=== PATIENT | female | born 1960 | race Caucasian/White ===

== ENCOUNTER 2016-05-09 17:17 | Inpatient (IN) ==
--- NOTE | 2016-05-09 17:26 | Emergency Department Note ---
Disposition Clinical Impression: Pancreatitis, Diabetes, Obesity, Gallbladder disease, Abnormal chest x-ray Disposition: Admitted As Inpatient Referrals: Stephanie Bobo CNP [Primary Care Provider] - Forms: ED Satisfaction Letter, Work/School Release General Adult HPI - General Chief complaint: ED Abdominal Pain Stated complaint: epigastric pain Time Seen by Provider: 05/09/16 17:25 Source: patient Limitations: no limitations - History of Present Illness HPI Narrative: 55-year-old female reports emergency department describing severe midepigastric and right upper abdominal pain. She states she is scheduled to have her gallbladder removed and she states that she has a known history of gallbladder disease. The patient felt severe right upper and mid epigastric pain after eating. She denies any chest pain shortness of breath or cough no fever leg swelling or pain or syncope. She is not anticoagulated at this time. There is no history of emesis or diarrhea. There has been no bloody stool. No rashes fever or trauma. The patient has had no back pain or urinary symptoms. The pain started today. She states she has a history of pancreatitis. There is no history of confusion or difficulty moving the arms or legs independently. Has no history of jaundice. She is known to be diabetic and did not have any diabetic medication since early this morning per patient. Onset (ago): hour(s) Pain Scale: 8 - Related Data Home Medications Medication Instructions Recorded Confirmed Aspirin [Adult Low Dose Aspirin EC] 81 mg PO QAM 05/24/15 05/24/15 Carvedilol 12.5 mg PO BID 05/24/15 05/24/15 Paroxetine HCl 20 mg PO DAILY 05/24/15 05/24/15 Pravastatin Sodium [Pravachol] 20 mg PO DAILY 05/24/15 05/24/15 Cvs Mucus D ER 600-60 mg Tab 1,200 mg PO BID 07/27/15 07/27/15 Ferrous Sulfate 325 mg PO DAILY 07/27/15 07/27/15 Ipratropium/Albuterol Neb 3 ml IH QID 07/27/15 07/27/15 Lantus Solostar 15 units SQ HS 07/27/15 07/27/15 Lasix 20 mg PO DAILY 07/27/15 07/27/15 Loratadine 10 mg PO DAILY 07/27/15 07/27/15 Protonix 40 mg PO DAILY 07/27/15 07/27/15 Roxicodone 5 MG 10 mg PO Q3H PRN 07/27/15 07/27/15 Previous Rx's Medication Instructions Recorded Azithromycin [Zithromax] 250 mg PO Q24H #4 tablet 07/27/15 Methocarbamol [Robaxin-750] 750 mg PO Q6H PRN #20 tablet 10/29/15 PredniSONE 10 mg PO DAILY #20 tablet 10/29/15 Allergies Allergy/AdvReac Type Severity Reaction Status Date / Time naproxen [From Naprosyn] Allergy Itching Verified 05/24/15 12:14 tramadol Allergy Itching Verified 05/24/15 14:21 All systems ED: reviewed and negative except as stated. 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 history - Social History Smoking Status: Former smoker Smokeless Tobacco Status: No Alcohol use: Reports: none Drug use: Reports: none Physical Exam - General Limitations: no limitations General appearance: alert, in no apparent distress - Head Head exam: atraumatic, normocephalic, normal inspection - Eye Eye exam: Present: normal appearance, PERRL, EOMI - ENT ENT exam: normal exam, normal oropharynx, mucous membranes moist, TM's normal bilaterally, normal external ear exam - Neck Neck exam: Present: normal inspection, full ROM, trachea midline - Chest Chest inspection: Present: symmetric chest wall rise. Absent: tenderness - Respiratory Respiratory exam: Present: normal lung sounds bilaterally. Absent: respiratory distress - Cardiovascular Cardiovascular exam: Present: normal rhythm, tachycardia - Abdominal Exam Abdominal exam: Present: soft, tenderness. Absent: distention, guarding, rebound, rigidity, trauma, Morgan's sign, Rovsing's sign, tenderness at McBurney 's Point Abdominal tenderness: Present: RUQ, epigastrium, moderate - Extremities Exam Extremities exam: Present: normal inspection, full ROM, normal capillary refill. Absent: tenderness, pedal edema, joint swelling, calf tenderness - Expanded Lower Extremity Exam Lower leg exam: Absent: Homans' sign Neurovascular/Tendon exam: Absent: motor deficit, sensory deficit, tendon deficit, extremity cold to touch, pallor - Back Exam Back exam: Present: normal inspection, full ROM. Absent: tenderness, CVA tenderness (R), CVA tenderness (L), vertebral tenderness - Neurological Exam Neurological exam: Present: alert, oriented X3, CN II-XII intact. Absent: motor sensory deficit - Psychiatric Psychiatric exam: Present: normal affect, normal mood - Skin Skin exam: Present: warm, dry, intact, normal color. Absent: rash, cyanosis, diaphoresis, erythema, pallor, mottled Course Vital Signs Temperature 97.6 F 05/09/16 17:18 Pulse Rate 114 05/09/16 17:18 Respiratory Rate 18 05/09/16 17:18 Blood Pressure 180/115 05/09/16 17:18 O2 Sat by Pulse Oximetry 95 05/09/16 17:18 Temperature 97.6 F 05/09/16 17:18 Pulse Rate 92 05/09/16 19:19 Respiratory Rate 14 05/09/16 19:19 Blood Pressure 158/88 05/09/16 19:19 O2 Sat by Pulse Oximetry 94 L 05/09/16 19:19 Oxygen Delivery Oxygen Delivery Room Air Medical Decision Making - MDM Narrative Medical decision making narrative: The patient has an elevated white count, was tachycardic and has no abnormal chest x-ray suggestive of infection or possible sepsis. Patient was given IV fluids and antibiotics. Her CT shows abnormalities were involving the pancreas and apparently the gallbladder duct. The patient had symptomatology which seemed to be relatively acute. Based on her age, diabetes, CT abdominal abnormalities including possible acute pancreatitis and/or fistulization of the pancreas to the stomach, as well as gallbladder duct abnormalities, in association with an abnormal chest x-ray, I thought it would be appropriate to admit the patient to the hospital. I discussed the case with the hospitalist on -call, who has asked me to consult the surgeon director of curriculum and instruction. Dr. Garza was on-call who inquired as to who the surgeon was that the patient had initially consulted , the patient responded Dr. Martin, Dr. Garza asked me to call Dr. Johnson who is covering Dr. Martin's patients. I spoke with Dr. Johnson who will act as peoplesoft consultant. The patient is currently stable. - Lab Data Lab results reviewed: Yes I reviewed the patient's lab results. Result diagrams: 05/09/16 17:34 05/09/16 17:34 Lab Results 05/09/16 05/09/16 05/09/16 Range/Units 17:34 17:34 17:34 WBC 12.6 H (4.3-11.1) K/mcL RBC 5.63 H (3.82-4.97) M/mcL Hgb 13.9 (11.5-15.4) g/dL Hct 45.9 H (35.3-44.9) % MCV 81.5 L (83.0-100.0) fL MCH 24.7 L (28.0-33.3) pg MCHC 30.3 L (31.6-35.5) g/dL RDW 13.5 (11.5-14.5) % Plt Count 361 (140-400) K/mcL MPV 10.3 (9.4-12.4) fL Immature Gran % 0.3 (0-4) % Seg Neutrophils % 56.9 % Lymphocytes % 32.1 % Monocytes % 5.3 % Eosinophils % 4.8 % Basophils % 0.6 % Neutrophils # 7.2 (1.6-8.9) K/mcL Lymphocytes # 4.0 (0.6-4.6) K/mcL Monocytes # 0.7 (0.0-1.3) K/mcL Eosinophils # 0.6 (0.0-0.6) K/mcL Basophils # 0.1 (0.0-0.2) K/mcL Reactive Lymphocytes Present A (Not Present) PT 11.6 (9.4-12.1) Seconds INR 1.1 APTT 30.9 (26.0-36.0) Seconds Sodium 137 (136-145) mEq/L Potassium 4.6 H (3.5-4.5) mEq/L Chloride 102 (98-109) mEq/L Carbon Dioxide 22 (19-29) mEq/L BUN 18 (7-20) mg/dL Creatinine 0.81 (0.57-1.11) mg/dL Est GFR ( Amer) > 60 (> 60) Est GFR (Non-Af Amer) > 60 (> 60) BUN/Creatinine Ratio 22 (6-26) Glucose 304 H (70-99) mg/dL Calculated Osmolality 297 (280-300) Lactic Acid (0.5-2.2) mmol/L Calcium 9.4 (8.6-10.8) mg/dL Total Bilirubin 0.5 (0.2-1.2) mg/dL Direct Bilirubin 0.1 (0.0-0.5) mg/dL Indirect Bilirubin 0.4 (0.0-1.2) mg/dL AST 42 H (5-34) Units/L ALT 28 (0-55) Units/L Alkaline Phosphatase 141 H (38-126) Units/L Troponin I (0-0.03) ng/mL C-Reactive Protein 13 H (Less than 5) mg/L B-Natriuretic Peptide (0-100) pg/mL Serum Total Protein 7.9 (6.0-8.3) g/dL Albumin 4.0 (3.5-5.0) g/dL Globulin 3.9 H (2.4-3.5) g/dL Albumin/Globulin Ratio 1.0 L (1.1-2.2) Amylase 50 (25-125) Units/L Lipase 21 (8-78) Units/L Urine Color (Yellow) Urine Clarity (Clear) Urine pH (5.0-8.0) pH Units Ur Specific [place] (1.010-1.025) Urine Protein (Neg-Trace) mg/dL Urine Glucose (UA) (Normal) mg/dL Urine Ketones (Negative) mg/dL Urine Blood (Negative) Urine Nitrite (Negative) Urine Bilirubin (Negative) Urine Urobilinogen (Normal) mg/dL Ur Leukocyte Esterase (Negative) Ur Culture Indicated? (NO) Urine Opiates Screen (Pcsakq=090) ng/mL Ur Barbiturates Screen (Wkvhtw=643) ng/mL Ur Phencyclidine Scrn (Cutoff=25) ng/mL Ur Amphetamines Screen (Lpyljj=1003) ng/mL U Benzodiazepines Scrn (Weamdp=372) ng/mL Urine Cocaine Screen (Cutoff= 300) ng/mL U Marijuana (THC) Screen (Cutoff = 50) ng/mL 05/09/16 05/09/16 05/09/16 Range/Units 17:34 17:34 17:34 WBC (4.3-11.1) K/mcL RBC (3.82-4.97) M/mcL Hgb (11.5-15.4) g/dL Hct (35.3-44.9) % MCV (83.0-100.0) fL MCH (28.0-33.3) pg MCHC (31.6-35.5) g/dL RDW (11.5-14.5) % Plt Count (140-400) K/mcL MPV (9.4-12.4) fL Immature Gran % (0-4) % Seg Neutrophils % % Lymphocytes % % Monocytes % % Eosinophils % % Basophils % % Neutrophils # (1.6-8.9) K/mcL Lymphocytes # (0.6-4.6) K/mcL Monocytes # (0.0-1.3) K/mcL Eosinophils # (0.0-0.6) K/mcL Basophils # (0.0-0.2) K/mcL Reactive Lymphocytes (Not Present) PT (9.4-12.1) Seconds INR APTT (26.0-36.0) Seconds Sodium (136-145) mEq/L Potassium (3.5-4.5) mEq/L Chloride (98-109) mEq/L Carbon Dioxide (19-29) mEq/L BUN (7-20) mg/dL Creatinine (0.57-1.11) mg/dL Est GFR ( Amer) (> 60) Est GFR (Non-Af Amer) (> 60) BUN/Creatinine Ratio (6-26) Glucose (70-99) mg/dL Calculated Osmolality (280-300) Lactic Acid 1.9 (0.5-2.2) mmol/L Calcium (8.6-10.8) mg/dL Total Bilirubin (0.2-1.2) mg/dL Direct Bilirubin (0.0-0.5) mg/dL Indirect Bilirubin (0.0-1.2) mg/dL AST (5-34) Units/L ALT (0-55) Units/L Alkaline Phosphatase (38-126) Units/L Troponin I 0.00 (0-0.03) ng/mL C-Reactive Protein (Less than 5) mg/L B-Natriuretic Peptide < 10 (0-100) pg/mL Serum Total Protein (6.0-8.3) g/dL Albumin (3.5-5.0) g/dL Globulin (2.4-3.5) g/dL Albumin/Globulin Ratio (1.1-2.2) Amylase (25-125) Units/L Lipase (8-78) Units/L Urine Color (Yellow) Urine Clarity (Clear) Urine pH (5.0-8.0) pH Units Ur Specific [place] (1.010-1.025) Urine Protein (Neg-Trace) mg/dL Urine Glucose (UA) (Normal) mg/dL Urine Ketones (Negative) mg/dL Urine Blood (Negative) Urine Nitrite (Negative) Urine Bilirubin (Negative) Urine Urobilinogen (Normal) mg/dL Ur Leukocyte Esterase (Negative) Ur Culture Indicated? (NO) Urine Opiates Screen (Suocyq=169) ng/mL Ur Barbiturates Screen (Frrqzh=002) ng/mL Ur Phencyclidine Scrn (Cutoff=25) ng/mL Ur Amphetamines Screen (Bflabu=1977) ng/mL U Benzodiazepines Scrn (Itxwub=302) ng/mL Urine Cocaine Screen (Cutoff= 300) ng/mL U Marijuana (THC) Screen (Cutoff = 50) ng/mL 05/09/16 05/09/16 Range/Units 19:40 19:40 WBC (4.3-11.1) K/mcL RBC (3.82-4.97) M/mcL Hgb (11.5-15.4) g/dL Hct (35.3-44.9) % MCV (83.0-100.0) fL MCH (28.0-33.3) pg MCHC (31.6-35.5) g/dL RDW (11.5-14.5) % Plt Count (140-400) K/mcL MPV (9.4-12.4) fL Immature Gran % (0-4) % Seg Neutrophils % % Lymphocytes % % Monocytes % % Eosinophils % % Basophils % % Neutrophils # (1.6-8.9) K/mcL Lymphocytes # (0.6-4.6) K/mcL Monocytes # (0.0-1.3) K/mcL Eosinophils # (0.0-0.6) K/mcL Basophils # (0.0-0.2) K/mcL Reactive Lymphocytes (Not Present) PT (9.4-12.1) Seconds INR APTT (26.0-36.0) Seconds Sodium (136-145) mEq/L Potassium (3.5-4.5) mEq/L Chloride (98-109) mEq/L Carbon Dioxide (19-29) mEq/L BUN (7-20) mg/dL Creatinine (0.57-1.11) mg/dL Est GFR ( Amer) (> 60) Est GFR (Non-Af Amer) (> 60) BUN/Creatinine Ratio (6-26) Glucose (70-99) mg/dL Calculated Osmolality (280-300) Lactic Acid (0.5-2.2) mmol/L Calcium (8.6-10.8) mg/dL Total Bilirubin (0.2-1.2) mg/dL Direct Bilirubin (0.0-0.5) mg/dL Indirect Bilirubin (0.0-1.2) mg/dL AST (5-34) Units/L ALT (0-55) Units/L Alkaline Phosphatase (38-126) Units/L Troponin I (0-0.03) ng/mL C-Reactive Protein (Less than 5) mg/L B-Natriuretic Peptide (0-100) pg/mL Serum Total Protein (6.0-8.3) g/dL Albumin (3.5-5.0) g/dL Globulin (2.4-3.5) g/dL Albumin/Globulin Ratio (1.1-2.2) Amylase (25-125) Units/L Lipase (8-78) Units/L Urine Color Yellow (Yellow) Urine Clarity Clear (Clear) Urine pH 5.5 (5.0-8.0) pH Units Ur Specific [place] > 1.030 H (1.010-1.025) Urine Protein Negative (Neg-Trace) mg/dL Urine Glucose (UA) 250 H (Normal) mg/dL Urine Ketones Negative (Negative) mg/dL Urine Blood Negative (Negative) Urine Nitrite Negative (Negative) Urine Bilirubin Negative (Negative) Urine Urobilinogen Normal (Normal) mg/dL Ur Leukocyte Esterase Negative (Negative) Ur Culture Indicated? NO (NO) Urine Opiates Screen Negative (Kwlkpo=792) ng/mL Ur Barbiturates Screen Negative (Wwpial=865) ng/mL Ur Phencyclidine Scrn Negative (Cutoff=25) ng/mL Ur Amphetamines Screen Negative (Yguobo=7283) ng/mL U Benzodiazepines Scrn Negative (Ptsbug=136) ng/mL Urine Cocaine Screen Negative (Cutoff= 300) ng/mL U Marijuana (THC) Screen Negative (Cutoff = 50) ng/mL - Radiology Data Radiology results reviewed: Yes I reviewed the patient's radiology results.
[2016-05-09] MEDS ORDERED: Ondansetron 4 MG/2 ML VIAL IVP ONE (17:28)
[2016-05-09] MEDS ORDERED: *HR* HYDROmorphone (PF) 1 MG/ML SYRINGE IVP ONE (17:28)
[2016-05-09 17:46] LABS: Basophils # 0.1 K/mcL (0.0-0.2); Basophils % 0.6 %; Eosinophils # 0.6 K/mcL (0.0-0.6); Eosinophils % 4.8 %; Hematocrit 45.9 % (35.3-44.9); Hemoglobin 13.9 g/dL (11.5-15.4); Immature Granulocytes % 0.3 % (0-4); Lymphocytes % 32.1 %; Mean Corpuscular HGB Conc 30.3 g/dL (31.6-35.5); Mean Corpuscular Hemoglobin 24.7 pg (28.0-33.3); Mean Corpuscular Volume 81.5 fL (83.0-100.0); Mean Platelet Volume 10.3 fL (9.4-12.4); Monocytes # 0.7 K/mcL (0.0-1.3); Monocytes % 5.3 %; Platelet Count 361 K/mcL (140-400); Red Blood Count 5.63 M/mcL (3.82-4.97); Red Cell Distribution Width 13.5 % (11.5-14.5); Segmented Neutrophils % 56.9 %
[2016-05-09 17:53] LABS: INR 1.1; Prothrombin Time 11.6 Seconds (9.4-12.1)
[2016-05-09 17:55] LABS: Activated Partial Thrombo Time 30.9 Seconds (26.0-36.0)
[2016-05-09 17:58] LABS: Neutrophils # 7.2 K/mcL (1.6-8.9)
[2016-05-09 18:01] LABS: Alanine Aminotransferase 28 Units/L (0-55); Alkaline Phosphatase 141 Units/L (38-126); Amylase 50 Units/L (25-125); Aspartate Amino Transferase 42 Units/L (5-34); BUN/Creatinine Ratio 22 (6-26); Bilirubin,Direct 0.1 mg/dL (0.0-0.5); Bilirubin,Indirect 0.4 mg/dL (0.0-1.2); Bilirubin,Total 0.5 mg/dL (0.2-1.2); Blood Urea Nitrogen 18 mg/dL (7-20); C-Reactive Protein 13 mg/L (Less than 5); Calcium 9.4 mg/dL (8.6-10.8); Carbon Dioxide 22 mEq/L (19-29); Chloride 102 mEq/L (98-109); Globulin 3.9 g/dL (2.4-3.5); Glucose 304 mg/dL (70-99); Lipase 21 Units/L (8-78); Osmolality,Calculated 297 (280-300); Potassium 4.6 mEq/L (3.5-4.5); Sodium 137 mEq/L (136-145); Total Protein 7.9 g/dL (6.0-8.3); eGFR For African Americans > 60 (> 60); eGFR For Non-African Americans > 60 (> 60)
[2016-05-09 18:13] LABS: Reactive Lymphocytes Present (Not Present)
[2016-05-09] MEDS ORDERED: Levofloxacin 750 MG/150 ML 750 MG/150 ML BAG IVPB ONE (19:25)
[2016-05-09] MEDS ORDERED: 0.9 % Sodium Chloride 1,000 ML IVC ONE (19:26)
[2016-05-09 19:49] LABS: Bilirubin,Urine Negative (Negative); Blood,Urine Negative (Negative); Clarity,Urine Clear (Clear); Color,Urine Yellow (Yellow); Glucose,Urine (UA) 250 mg/dL (Normal); Ketones,Urine Negative (Negative); Leukocyte Esterase,Urine Negative (Negative); Nitrite,Urine Negative (Negative); PH,Urine 5.5 pH Units (5.0-8.0); Protein,Urine Negative (Neg-Trace); Specific Gravity,Urine > 1.030 (1.010-1.025); Urobilinogen,Urine Normal (Normal)
[2016-05-09 19:56] LABS: Amphetamine Screen,Urine Negative ng/mL (Cutoff=1000); Barbiturate Screen,Urine Negative ng/mL (Cutoff=200); Benzodiazepines Screen,Urine Negative ng/mL (Cutoff=200); Cannabinoid Screen,Urine Negative ng/mL (Cutoff = 50); Cocaine Screen,Urine Negative ng/mL (Cutoff= 300); Opiate Screen,Urine Negative ng/mL (Cutoff=300); Phencyclidine Screen,Urine Negative ng/mL (Cutoff=25)
--- NOTE | 2016-05-09 23:17 | Internal Med History&Physical ---
<Alva Hogue - Last Filed: 05/10/16 01:10> Date of Encounter: 05/10/16 Time of Encounter: 23:03 Assessment and Plan (1) Abdominal pain Current visit: Yes Status: Acute Patient with RUQ and epigastric pain. She has a history of gallbladder disease and chronic pancreatitis, either of which could be contributing to her abdominal pain. Abdominal CT showed a mildly dilated CBD at 10mm, atrphic ancrease and mild inflammatory changes around the pancreas concerning for acute on chronic pancreatitis. It also showed an abnormal tethering of the stomach wall to the body of the pancreas that could be a fistula but showed no change from previous CT. Patient was afebrile but tachycardic with a leukocytosis and elevated CRP so there is concern for infectious process, possibly acute cholecystits. Will get a gallbladder ultrasound and cover with IV antibiotics. Amylase and lipase were both normal which makes acute on chronic pancretitis less likely, but with the patient having had a severe case of pancreatitis that resulted in diabetes could mean the pancreas is so damaged we won't see the elevation in pancreatic enzymes. Will start fluids at 150ml/hr, make the patient NPO and provide pain control. Dr. Johnson was consulted from the ED and he agreed to see the patient in the morning for further evaluation. 1. Gallbladder ultrasound 2. IV zosyn Q8H 3. NPO 4. Normal saline at 150mls/hr 5. Pain control and supportive care 6. Labs in the morning including CBC, LFT, CRP, amylase and lipase 7. Appreciate further recommendations from surgery. Qualifiers: Abdominal location: right upper quadrant Qualified Code(s): R10.11 - Right upper quadrant pain (2) Gallbladder disease Current visit: Yes Status: Acute History of gallbladder disease with ultrasound showing gallbladder sludge. Patient is scheduled with Dr Martin for cholecystectomy. Will get a gallbladder ultrasound and cover with IV antibiotics due to concern for acute infection. (3) Pancreatitis Current visit: No Status: Acute Patient with chronic pancreatitis with CT showing concern for possible acute on chronic pancreatitis despite normal enzymes. Will start fluids at 150ml/hr, make the patient NPO and provide pain control. 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 On arrival patient, blood glucose was 304. Patient has not taken her evening insulin yet today. Will give patient full prescribed 45 units of insulin tonight. Patient will be NPO so will do Q6H glucose checks and low intensity sliding scale insulin. 1. 45 units of insulin now 2. Q6H glucose checks 3. Low intensity sliding scale insulin. (5) DVT prophylaxis Current visit: Yes Status: Acute SCD for DVT prophylaxis until further recommendations from surgery. Internal Medicine - H&P: HPI Chief complaint: RUQ abdominal pain, nausea/vomiting Admitted From: Emergency Dept Plans for Post Hospital Care: Home History of present illness: Ms. Archer is a 55 year old female with PMH of diabetes, GERD, HTN, COPD and chronic pancreatitis who presents with RUQ and epigastric abdominal pain. Patient reports that she was eating dinner when she developed severe RUQ and epigastric abdominal pain. She reports that she then became very nauseous and vomited multiple times. She denies any blood in the vomit. She describes the pain as constant, sharp pain. Currently the pain is a 4-5/10. Nothing makes the pain better or worse. Patient has a history of gallbladder sludge and is scheduled with Dr. Martin to have a cholecystectomy. She states that she will occasionally get cramping pain after eating and at night but she has never had pain like this before. Patient denies any headache, changes in vision, fevers/ chills, chest pain/pressure, worsening shortness of breath, or changes in bowel or bladder function. In the ED, patient was afebrile. She was tachycardic up to 114bpm. RR and blood pressure appropriate. She has a leukocytosis of 12.6. Bilirubin normal, AST 42, ALT 28. Amylase 50 and Lipase 21. She does have a elevated CRP at 13. CXR showed a left lung base opacity likely atelectasis maybe small effusion. Abdominal CT scan shoed a mildly dilated CBD at 10mm, atropic pancreas consistent with her history of chronic pancreatitis, and mild inflammatory changes around the pancreas that may suggest acute inflammation. It also shows an abnormal tethering of the stomach wall to the pancreas body that was concerning for a fistula, this was not changed from previous CT. On exam, patient is awake and alert, in no acute distress. She is conversing appropriately. Lungs clear to auscultation bilaterally. Heart regular rate and rhythm. Abdomen soft, tender to palpation in epigastric region and RUQ. + Justin's sign. Involuntary guarding but no rebound or rigidity. No pedal edema noted. Past Med Surg Social Fam HX - Past Medical History Medical history: diabetes, GERD, hyperlipidemia, hypertension, other Psychiatric history: depression - Past Surgical History Surgical History: hysterectomy, other - Social History Smoking Status: Former smoker Smokeless Tobacco Status: No Alcohol use: none Drug use: none - Family History Father Living Status: Age at : 62 Cause of : colon cancer, black lung Hx Family Cancer: Yes (colon cancer, black lung) Mother Age: 83 Family Member Ethnicity: Non- Living Status: Still Living Hx Family Cardiac Disorders: Yes (heart disease) Hx Family Endocrine Disorder: Yes (diabetes) Internal Medicine - H&P: Meds Aspirin [Adult Low Dose Aspirin EC] 81 mg PO QAM 05/24/15 [History] Carvedilol 12.5 mg PO BID 05/24/15 [History] Paroxetine HCl 20 mg PO DAILY 05/24/15 [History] Pravastatin Sodium [Pravachol] 20 mg PO DAILY 05/24/15 [History] Azithromycin [Zithromax] 250 mg PO Q24H #4 tablet 07/27/15 [Rx] Cvs Mucus D ER 600-60 mg Tab 1,200 mg PO BID 07/27/15 [History] Ferrous Sulfate 325 mg PO DAILY 07/27/15 [History] Ipratropium/Albuterol Neb 3 ml IH QID 07/27/15 [History] Lantus Solostar 15 units SQ HS 07/27/15 [History] Lasix 20 mg PO DAILY 07/27/15 [History] Loratadine 10 mg PO DAILY 07/27/15 [History] Protonix 40 mg PO DAILY 07/27/15 [History] Roxicodone 5 MG 10 mg PO Q3H PRN 07/27/15 [History] Methocarbamol [Robaxin-750] 750 mg PO Q6H PRN #20 tablet 10/29/15 [Rx] PredniSONE 10 mg PO DAILY #20 tablet 10/29/15 [Rx] Allergies naproxen [From Naprosyn] Allergy (Verified 05/24/15 12:14) Itching tramadol Allergy (Verified 05/24/15 14:21) Itching All Systems PM: A 10-system review of systems was performed and is negative for pertinent findings except as documented above in the HPI. - Constitutional Constitutional: no chills, no fever(s) - EENT Eyes: no change in vision - Cardiovascular Cardiovascular ROS IM: no dyspnea, no dyspnea on exertion, no irregular heart rhythm, no lightheadedness, no palpitations - Respiratory Respiratory: no cough, no dyspnea, no hemoptysis, no wheezing - Gastrointestinal Gastrointestinal: abdominal pain, nausea, vomiting, no constipation, no diarrhea , no heartburn, no hematemesis, no hematochezia, no melena - Genitourinary Genitourinary: no change in urinary stream, no dysuria - Neurological Neurological ROS: no confusion, no headache(s) - Constitutional Vitals: Temp Pulse Resp BP Pulse Ox 98.0 F 96 20 160/93 92 L 05/09/16 21:31 05/09/16 21:31 05/09/16 21:31 05/09/16 21:31 05/09/16 21:31 General appearance: Present: A&O X 3, pleasant, no acute distress, answers questions appropriately - Head Head exam: Present: atraumatic, normal inspection, normocephalic - Eye Eye exam: Present: EOMI, normal appearance - ENT ENT exam: Present: mucous membranes moist - Respiratory Respiratory exam: Present: CTAB. Absent: rales, rhonchi, wheezes - Cardiovascular Cardiovascular exam: Present: RRR - GI/Abdominal GI/Abdominal exam: Present: normal bowel sounds, soft, tenderness. Absent: guarding, rebound, rigid Additional comments: + Justin's Sign - Extremities Exam Extremities exam: Present: normal inspection. Absent: pedal edema - Neurological Exam Neurological exam: Present: alert, CN II-XII intact, oriented X3, no focal deficits Internal Med - H&P Results - Labs CBC & Chem 7: 05/09/16 17:34 05/09/16 17:34 <Tristan Vegas - Last Filed: 05/10/16 01:35> Date of Encounter: 05/10/16 Internal Medicine - H&P: HPI History of present illness: Ms. Archer is a 55 year old female All Systems PM: A 10-system review of systems was performed and is negative for pertinent findings except as documented above in the HPI. - Constitutional Vitals: Temp Pulse Resp BP Pulse Ox 97.7 F 83 20 109/69 93 L 05/09/16 23:41 05/09/16 23:41 05/09/16 23:41 05/09/16 23:41 05/09/16 23:41 Internal Med - H&P Results - Labs CBC & Chem 7: 05/09/16 17:34 05/09/16 17:34 - Attending Attestation I examined this patient and my medical decision-making was reviewed with the Resident Physician, Dr Hogue. I agree with the documented findings, disposition and treatment plan as described except to the extent set forth below. Patient presented with severe sudden onset epigastric and right upper quadrant pain which started while she was having dinner. Her abdomen is soft, tender to palpation with voluntary guarding and no rebound tenderness or rigidity. CT scan reviewed by myself with no evidence of bowel obstruction, mild pancreatitis is possible, no radio opaque gallstones. Plan: IV fluids, IV opiates for pain, general surgery consult, will check gallbladder ultrasound. Nothing by mouth after midnight.
[2016-05-10] MEDS ORDERED: Naloxone 0.4 MG/ML INJ IVP PRN (00:14)
[2016-05-10] MEDS ORDERED: Acetaminophen 325 MG TABLET PO PRN (00:14)
[2016-05-10] MEDS ORDERED: D5% in Water 1,000 ML IV PRN (00:20)
[2016-05-10] MEDS ORDERED: Dextrose Gel 15 GM PO PRN ×2 (00:20)
[2016-05-10] MEDS ORDERED: *HR* Dextrose 50 % in Water (Syg) 50 ML SYRINGE IVP PRN (00:20)
[2016-05-10] MEDS ORDERED: Insulin DETEMIR 100 UNIT/ML X5UNITS SQ ONE (00:22)
[2016-05-10] MEDS: *HR* HYDROmorphone (PF) 1 MG/ML SYRINGE IVP PRN ×3 (01:13→15:55)
[2016-05-10] MEDS: 0.9 % Sodium Chloride 1,000 ML IVC SCH ×3 (01:32→15:55)
[2016-05-10] MEDS: *HR* HYDROcodone/Acet 5/325 mg TABLET PO PRN ×2 (05:14→21:21)
[2016-05-10] MEDS: Insulin LISPRO 300 UNITS/3 ML VIAL SQ SCH ×3 (07:00→17:21)
[2016-05-10] MEDS: Piperacillin/Tazobactam 3.375 GM in D5% in Water (Mini-Bag+) 100 ML IVPB SCH ×3 (07:45→23:33)
[2016-05-10 08:25] LABS: Basophils % 0.4 %; Eosinophils # 0.4 K/mcL (0.0-0.6); Eosinophils % 4.4 %; Hematocrit 38.9 % (35.3-44.9); Immature Granulocytes % 0.4 % (0-4); Lymphocytes # 2.9 K/mcL (0.6-4.6); Mean Corpuscular HGB Conc 31.1 g/dL (31.6-35.5); Mean Corpuscular Hemoglobin 26.1 pg (28.0-33.3); Mean Corpuscular Volume 83.8 fL (83.0-100.0); Mean Platelet Volume 10.9 fL (9.4-12.4); Monocytes # 0.6 K/mcL (0.0-1.3); Monocytes % 6.4 %; Neutrophils # 5.2 K/mcL (1.6-8.9); Platelet Count 235 K/mcL (140-400); Red Blood Count 4.64 M/mcL (3.82-4.97); Red Cell Distribution Width 13.6 % (11.5-14.5); Segmented Neutrophils % 56.4 %
[2016-05-10 08:36] LABS: Hemoglobin 12.1 g/dL (11.5-15.4)
[2016-05-10 08:37] LABS: Alanine Aminotransferase 17 Units/L (0-55); Albumin/Globulin Ratio 0.9 (1.1-2.2); Alkaline Phosphatase 114 Units/L (38-126); Amylase 40 Units/L (25-125); Aspartate Amino Transferase 24 Units/L (5-34); BUN/Creatinine Ratio 26 (6-26); Bilirubin,Total 0.5 mg/dL (0.2-1.2); Blood Urea Nitrogen 17 mg/dL (7-20); Calcium 8.3 mg/dL (8.6-10.8); Carbon Dioxide 27 mEq/L (19-29); Chloride 106 mEq/L (98-109); Globulin 3.5 g/dL (2.4-3.5); Glucose 152 mg/dL (70-99); Lipase 29 Units/L (8-78); Magnesium 1.6 mg/dL (1.6-2.6); Osmolality,Calculated 297 (280-300); Phosphorous 3.6 mg/dL (2.3-4.7); Potassium 4.4 mEq/L (3.5-4.5); Sodium 141 mEq/L (136-145); Total Protein 6.6 g/dL (6.0-8.3); eGFR For African Americans > 60 (> 60); eGFR For Non-African Americans > 60 (> 60)
[2016-05-10 08:41] LABS: Albumin 3.1 g/dL (3.5-5.0)
--- NOTE | 2016-05-10 09:48 | General Surgery Consult Note ---
Date of Encounter: 05/10/16 Time of Encounter: 09:46 Assessment and Plan (1) Pancreatitis Current Visit: Yes Status: Acute Patient is currently being treated for bouts of chronic pancreatitis. I explained to the patient that I also reviewed my colleague's note which stated that she still may have the same type of pain symptoms following her gallbladder surgery. I will let my colleague noted that she is here in the hospital but there is no guarantee that she will have her surgery performed on Wednesday. Nevertheless, I will make her nothing by mouth after midnight just in case. The patient and she agrees with the above plan. Qualifiers: Chronicity: chronic Pancreatitis type: unspecified pancreatitis type Qualified Code(s): K86.1 - Other chronic pancreatitis History of Present Illness Consult date: 05/10/16 Reason for consult: abdominal pain (Epigastric abdominal pain) Requesting physician: Susan Cardozo History of present illness: The patient is a 55 year old female with past medical history significant for pancreatitis, COPD, diabetes, hypertension who is well-known to our surgical service. She has been seen by Dr. Martin due to epigastric abdominal pain and his chronic pancreatitis. She has had ultrasound studies demonstrating gallbladder sludge and has had bouts of pancreatitis and the plan was to schedule for laparoscopic cholecystectomy, however she first required pulmonary clearance due to her significant COPD history. She did have that consultation on 04/30/2016 and states that she has been having worsening epigastric pain symptoms and right upper quadrant pain that brought her into the hospital last night. She admits to nausea and vomiting without diarrhea or constipation and denies any hematemesis or rectal bleeding. Past Med Surg Social Fam HX - Past Medical History Medical history: diabetes, GERD, hyperlipidemia, hypertension, other Psychiatric history: depression - Past Surgical History Surgical History: hysterectomy, other - Social History Smoking Status: Former smoker Smokeless Tobacco Status: No Alcohol use: none Drug use: none - Family History Father Living Status: Age at : 62 Cause of : colon cancer, black lung Hx Family Cancer: Yes (colon cancer, black lung) Mother Age: 83 Family Member Ethnicity: Non- Living Status: Still Living Hx Family Cardiac Disorders: Yes (heart disease) Hx Family Endocrine Disorder: Yes (diabetes) Medications and Allergies Aspirin [Adult Low Dose Aspirin EC] 81 mg PO QAM 05/24/15 [History] Carvedilol 12.5 mg PO BID 05/24/15 [History] Paroxetine HCl 20 mg PO DAILY 05/24/15 [History] Pravastatin Sodium [Pravachol] 20 mg PO DAILY 05/24/15 [History] Azithromycin [Zithromax] 250 mg PO Q24H #4 tablet 07/27/15 [Rx] Cvs Mucus D ER 600-60 mg Tab 1,200 mg PO BID 07/27/15 [History] Ferrous Sulfate 325 mg PO DAILY 07/27/15 [History] Ipratropium/Albuterol Neb 3 ml IH QID 07/27/15 [History] Lantus Solostar 15 units SQ HS 07/27/15 [History] Lasix 20 mg PO DAILY 07/27/15 [History] Loratadine 10 mg PO DAILY 07/27/15 [History] Protonix 40 mg PO DAILY 07/27/15 [History] Roxicodone 5 MG 10 mg PO Q3H PRN 07/27/15 [History] Methocarbamol [Robaxin-750] 750 mg PO Q6H PRN #20 tablet 10/29/15 [Rx] PredniSONE 10 mg PO DAILY #20 tablet 10/29/15 [Rx] Allergies naproxen [From Naprosyn] Allergy (Verified 05/24/15 12:14) Itching tramadol Allergy (Verified 05/24/15 14:21) Itching Review of Systems All systems PM: reviewed and no additional remarkable complaints except as stated All systems PM: A 10-system review of systems was performed and is negative for pertinent findings except as documented above in the HPI. General Surgery Exam Initial Vital Signs Temp Pulse Resp BP Pulse Ox 97.6 F 114 18 180/115 95 05/09/16 17:18 05/09/16 17:18 05/09/16 17:18 05/09/16 17:18 05/09/16 17:18 - Eyes PERRL, normal ocular movement - Respiratory normal expansion, normal respiratory effort, clear to auscultation - Cardiovascular Cardiovascular exam: Present: RRR, no murmurs/rubs/gallops - Abdomen Abdomen general surgery: Present: bowel sounds present, soft (obese), tender ( RUQ and to a lesser degree epigastric pain to palpation) - Neurologic Present: CN 2-12 grossly intact - Musculoskeletal Present: other (No clubbing, cyanosis, or edema) Exam Initial Vital Signs Temp Pulse Resp BP Pulse Ox 97.6 F 114 18 180/115 95 05/09/16 17:18 05/09/16 17:18 05/09/16 17:18 05/09/16 17:18 05/09/16 17:18 Results - Labs 05/10/16 07:24 05/10/16 07:24 Abnormal lab results MCH 26.1 pg (28.0-33.3) L 05/10/16 07:24 MCHC 31.1 g/dL (31.6-35.5) L 05/10/16 07:24 Reactive Lymphocytes Present (Not Present) A 05/09/16 17:34 Glucose 152 mg/dL (70-99) H 05/10/16 07:24 POC Glucose 190 (58-89) H 05/10/16 05:47 Calcium 8.3 mg/dL (8.6-10.8) L 05/10/16 07:24 C-Reactive Protein 13 mg/L (Less than 5) H 05/09/16 17:34 Albumin 3.1 g/dL (3.5-5.0) L D 05/10/16 07:24 Albumin/Globulin Ratio 0.9 (1.1-2.2) L 05/10/16 07:24 Ur Specific [place] > 1.030 (1.010-1.025) H 05/09/16 19:40 Urine Glucose (UA) 250 mg/dL (Normal) H 05/09/16 19:40 Diabetes panel 05/10/16 Range/Units 07:24 Sodium 141 (136-145) mEq/L Potassium 4.4 (3.5-4.5) mEq/L Chloride 106 (98-109) mEq/L Carbon Dioxide 27 (19-29) mEq/L BUN 17 (7-20) mg/dL Creatinine 0.66 (0.57-1.11) mg/dL Glucose 152 H (70-99) mg/dL Calcium 8.3 L (8.6-10.8) mg/dL AST 24 (5-34) Units/L ALT 17 (0-55) Units/L Alkaline Phosphatase 114 (38-126) Units/L Albumin 3.1 L D (3.5-5.0) g/dL Calcium panel 05/10/16 Range/Units 07:24 Calcium 8.3 L (8.6-10.8) mg/dL Phosphorus 3.6 (2.3-4.7) mg/dL Albumin 3.1 L D (3.5-5.0) g/dL Pituitary panel 05/10/16 Range/Units 07:24 Sodium 141 (136-145) mEq/L Potassium 4.4 (3.5-4.5) mEq/L Chloride 106 (98-109) mEq/L Carbon Dioxide 27 (19-29) mEq/L BUN 17 (7-20) mg/dL Creatinine 0.66 (0.57-1.11) mg/dL Glucose 152 H (70-99) mg/dL Calcium 8.3 L (8.6-10.8) mg/dL Adrenal panel 05/10/16 Range/Units 07:24 Sodium 141 (136-145) mEq/L Potassium 4.4 (3.5-4.5) mEq/L Chloride 106 (98-109) mEq/L Carbon Dioxide 27 (19-29) mEq/L BUN 17 (7-20) mg/dL Creatinine 0.66 (0.57-1.11) mg/dL Glucose 152 H (70-99) mg/dL Calcium 8.3 L (8.6-10.8) mg/dL Total Bilirubin 0.5 (0.2-1.2) mg/dL AST 24 (5-34) Units/L ALT 17 (0-55) Units/L Alkaline Phosphatase 114 (38-126) Units/L Albumin 3.1 L D (3.5-5.0) g/dL All other labs normal. - Imaging CT scan - abdomen: report reviewed, image reviewed (Consistent with chronic Tegretol use. Fatty liver also noted. I personally reviewed the images and CAT scan report.) Consult Discharge Plan - Plan Referrals: Stephanie Bobo, TIMBER SIZER [Primary Care Provider] -
--- NOTE | 2016-05-10 11:03 | Internal Med Progress Note ---
Date of Encounter: 05/10/16 Time of Encounter: 11:01 - Assessment and plan (1) Abdominal pain Current Visit: Yes Status: Acute Assessment and plan: Likely related to acute episode of chronic pancreatitis. Continue pain control with when necessary IV Dilaudid and oral oxycodone. Supportive care. Qualifiers: Abdominal location: right upper quadrant Qualified Code(s): R10.11 - Right upper quadrant pain (2) Gallbladder disease Current Visit: Yes Status: Chronic Assessment and plan: Patient follows with , Surgery, and has been scheduled for outpatient cholecystectomy and she also had pulmonology appointment for possible untreated COPD and cleared for surgery. Pending right upper quadrant ultrasound today. Surgery consult noted, unsure if patient will undergo cholecystectomy tomorrow and she will still continue to have her current symptoms of abdominal pain after the surgery. (3) Pancreatitis Current Visit: Yes Status: Chronic Assessment and plan: Acute on chronic pancreatitis at this time. Keep nothing by mouth with aggressive IV hydration. Monitor electrolytes and vital signs closely. Pain control as above. Supportive care. Patient has had a prolonged hospitalization including ICU stay and intubation at [facility], where she was diagnosed with chronic pancreatitis. However patient has not been started on any pancreatic enzyme supplements and she has not been given any follow-up with GI. Qualifiers: Chronicity: chronic Pancreatitis type: unspecified pancreatitis type Qualified Code(s): K86.1 - Other chronic pancreatitis (4) COPD (chronic obstructive pulmonary disease) Current Visit: Yes Status: Chronic Assessment and plan: Patient has had no outpatient testing done and carries no formal diagnosis of COPD. We will start when necessary bronchodilators at this time due to mild wheezing. Supplemental oxygen as needed, currently not requiring any. 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 Accu-Chek blood glucose monitoring. Diabetic diet when able to tolerate. (6) Obesity Current Visit: Yes Status: Chronic Qualifiers: Obesity type: due to excess calories Obesity severity: non-morbid Qualified Code(s): E66.09 - Other obesity due to excess calories (7) GERD (gastroesophageal reflux disease) Current Visit: Yes Status: Chronic Qualifiers: Esophagitis presence: esophagitis presence not specified Qualified Code(s) : K21.9 - Gastro-esophageal reflux disease without esophagitis (8) HLD (hyperlipidemia) Current Visit: Yes Status: Chronic Qualifiers: Hyperlipidemia type: unspecified Qualified Code(s): E78.5 - Hyperlipidemia , unspecified (9) Essential hypertension Current Visit: Yes Status: Chronic - Subjective Interval history: He continues to have upper abdominal pain, controlled with pain medications. Improved nausea and vomiting now. Has bowel movements but no diarrhea. No chest pain, shortness of breath. - Constitutional Vitals: Temp Pulse Resp BP Pulse Ox 97.7 F 68 16 103/59 93 L 05/10/16 10:49 05/10/16 10:49 05/10/16 10:49 05/10/16 10:49 05/10/16 10:49 General appearance: Present: A&O X 3, obese, answers questions appropriately - Head Head exam: Present: atraumatic, normocephalic - Neck Neck exam general surgery: Present: supple, trachea midline. Absent: lymphadenopathy - Respiratory Respiratory exam: Present: CTAB, wheezes (Occasional mild end expiratory wheezing at right base). Absent: accessory muscle use, rales, rhonchi - Cardiovascular Cardiovascular exam: Present: RRR, +S1, +S2. Absent: diastolic murmur, gallop, rubs, systolic murmur - GI/Abdominal GI/Abdominal exam: Present: normal bowel sounds, soft (Mild tenderness in epigastrium and left upper quadrant. No guarding or rigidity.), no peritoneal signs. Absent: distended, tenderness - Extremities Exam Extremities exam: Present: full ROM, warm, radial pulses palpable and symetrical. Absent: calf tenderness, cyanotic, pedal edema - Neurological Exam Neurological exam: Present: CN II-XII intact, oriented X3, no focal deficits. Absent: pronater drift, facial droop, speech deficit Internal Medicine: Result - Labs CBC & Chem 7: 05/10/16 07:24 05/10/16 07:24 Labs: Short CBC 05/10/16 Range/Units 07:24 WBC 9.2 (4.3-11.1) K/mcL Hgb 12.1 D (11.5-15.4) g/dL Hct 38.9 (35.3-44.9) % Plt Count 235 (140-400) K/mcL Neutrophils # 5.2 (1.6-8.9) K/mcL BMP 05/10/16 07:24 Sodium 141 Potassium 4.4 Chloride 106 Carbon Dioxide 27 BUN 17 Creatinine 0.66 Glucose 152 H Calcium 8.3 L Liver Function 05/10/16 Range/Units 07:24 Total Bilirubin 0.5 (0.2-1.2) mg/dL AST 24 (5-34) Units/L ALT 17 (0-55) Units/L Alkaline Phosphatase 114 (38-126) Units/L Albumin 3.1 L D (3.5-5.0) g/dL - ABG Interpretation ABG results: PT/INR, D-dimer PT 11.6 Seconds (9.4-12.1) 05/09/16 17:34 - VTE Documentation of Mechanical Device: Intermittent pneumatic compression device Consult Discharge Plan - Plan Referrals: Stephanie Bobo, MACHINE WELDER [Primary Care Provider] -
[2016-05-10] MEDS ORDERED: 0.9 % Sodium Chloride 1,000 ML IVC SCH (17:20)
[2016-05-10] MEDS: Ondansetron 4 MG/2 ML VIAL IVP PRN (23:32)
[2016-05-11] MEDS: Insulin LISPRO 300 UNITS/3 ML VIAL SQ SCH ×3 (00:19→11:30)
[2016-05-11 03:18] LABS: Basophils % 0.3 %; Eosinophils # 0.5 K/mcL (0.0-0.6); Eosinophils % 4.9 %; Hematocrit 36.9 % (35.3-44.9); Hemoglobin 11.7 g/dL (11.5-15.4); Immature Granulocytes % 0.2 % (0-4); Lymphocytes # 2.6 K/mcL (0.6-4.6); Lymphocytes % 28.4 %; Mean Corpuscular HGB Conc 31.7 g/dL (31.6-35.5); Mean Corpuscular Hemoglobin 26.5 pg (28.0-33.3); Mean Corpuscular Volume 83.7 fL (83.0-100.0); Mean Platelet Volume 10.5 fL (9.4-12.4); Monocytes # 0.5 K/mcL (0.0-1.3); Monocytes % 5.9 %; Neutrophils # 5.6 K/mcL (1.6-8.9); Platelet Count 215 K/mcL (140-400); Red Blood Count 4.41 M/mcL (3.82-4.97); Red Cell Distribution Width 13.4 % (11.5-14.5); Segmented Neutrophils % 60.3 %
[2016-05-11 03:30] LABS: Alanine Aminotransferase 17 Units/L (0-55); Alkaline Phosphatase 105 Units/L (38-126); Aspartate Amino Transferase 26 Units/L (5-34); BUN/Creatinine Ratio 14 (6-26); Blood Urea Nitrogen 9 mg/dL (7-20); Calcium 8.5 mg/dL (8.6-10.8); Carbon Dioxide 26 mEq/L (19-29); Chloride 106 mEq/L (98-109); Globulin 3.1 g/dL (2.4-3.5); Glucose 149 mg/dL (70-99); Magnesium 1.6 mg/dL (1.6-2.6); Osmolality,Calculated 291 (280-300); Phosphorous 4.3 mg/dL (2.3-4.7); Sodium 140 mEq/L (136-145); Total Protein 6.1 g/dL (6.0-8.3); eGFR For African Americans > 60 (> 60); eGFR For Non-African Americans > 60 (> 60)
[2016-05-11 03:31] LABS: Bilirubin,Total 0.9 mg/dL (0.2-1.2)
--- NOTE | 2016-05-11 07:49 | General Surgery Progress Note ---
<Jerry Alvarado - Last Filed: 05/11/16 15:22> Date of Encounter: 05/11/16 Time of Encounter: 07:00 - Assessment and Plan (1) Gallbladder disease Current Visit: Yes Status: Acute Scheduled as an add on today for laparoscopic choleycystectomy with cholangiogram and possible liver biopsy. Abdominal CT showed a mildly dilated CBD at 10mm, atrophic pancreas and mild inflammatory changes around the pancreas concerning for acute on chronic pancreatitis. It also showed an abnormal tethering of the stomach wall to the body of the pancreas that could be a fistula but showed no change from previous CT. The patient has a history of COPD and has received pulmonary clearance for her cholecystectomy. The patient has been NPO since midnight. IV fluids at 100mls/hr The patient is on Zosyn. Platelets 149. (2) Pancreatitis Current Visit: Yes Status: Acute Acute on chronic pancreatitis with gall bladder disease. Patient is currently NPO. Continue IV fluids. Further plan as above. 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 Sliding scale insulin. Management per medicine team. (4) DVT prophylaxis Current Visit: Yes Status: Acute SCD for DVT prophylaxis Subjective Patient reports: feels better, still having pain Narrative: The patient states that she is feeling better than she was during her time of arrival to the hospital. At this time she is no longer having nausea or vomiting. She continues to have some pain, but it has improved since yesterday. Objective Vital Signs - Last 8 Hours Temp Pulse Resp BP Pulse Ox 05/11/16 07:11 97.9 F 77 16 126/72 94 L 05/11/16 04:08 97.9 F 92 14 134/82 94 L 05/11/16 00:23 97.6 F 74 15 133/79 93 L Intake and Output 05/10/16 05/10/16 05/11/16 15:59 23:59 07:59 Intake Total 1753 / 1753 1313 / 1313 200 / 200 Output Total 700 / 700 1400 / 1400 1600 / 1600 Balance 1053 / 1053 -87 / -87 -1400 / -1400 Intake: IV Fluids 1153 / 1153 323 / 323 0.9 % Sodium Chloride 1, 1053 / 1053 223 / 223 000 ML @ 150 mls/hr IVC . Q6H40M [facility] Rx#:[id number] Zosyn 3.375 GM In 100 / 100 100 / 100 Dextrose 5% (Minibag+) 100 ML 100 ML @ 25 mls/hr IVPB Q8HR [facility]A Rx#: [id number] Oral 600 / 600 990 / 990 200 / 200 Output: Urine 700 / 700 1400 / 1400 1600 / 1600 Other: Meal Lunch Dinner Weight 102.8 kg Blood Glucose* 100 113 Patient Weight 05/11/16 23:59 Weight 102.8 kg - General physical appearance well developed, well nourished, no distress - Eyes normal ocular movement - ENT normal mucosa - Neck Neck exam: trachea midline - Respiratory normal respiratory effort, clear to auscultation - Cardiovascular Cardiovascular exam: Present: RRR - Abdomen Abdomen: Present: bowel sounds present, soft Abdominal Tenderness: RUQ Additional Comments: Positive Morgan's sign - Integumentary no rash - Neurologic CN 2-12 grossly intact, normal coordination - Musculoskeletal normal posture - Psychiatric oriented to time, oriented to person, oriented to place, speech is normal, memory intact - Labs 05/11/16 02:53 05/11/16 02:53 Diabetes panel 05/10/16 05/11/16 Range/Units 07:24 02:53 Sodium 141 140 (136-145) mEq/L Potassium 4.4 4.0 (3.5-4.5) mEq/L Chloride 106 106 (98-109) mEq/L Carbon Dioxide 27 26 (19-29) mEq/L BUN 17 9 (7-20) mg/dL Creatinine 0.66 0.66 (0.57-1.11) mg/dL Glucose 152 H 149 H (70-99) mg/dL Calcium 8.3 L 8.5 L (8.6-10.8) mg/dL AST 24 26 (5-34) Units/L ALT 17 17 (0-55) Units/L Alkaline Phosphatase 114 105 (38-126) Units/L Albumin 3.1 L D 3.0 L (3.5-5.0) g/dL Calcium panel 05/10/16 05/11/16 Range/Units 07:24 02:53 Calcium 8.3 L 8.5 L (8.6-10.8) mg/dL Phosphorus 3.6 4.3 (2.3-4.7) mg/dL Albumin 3.1 L D 3.0 L (3.5-5.0) g/dL Pituitary panel 05/10/16 05/11/16 Range/Units 07:24 02:53 Sodium 141 140 (136-145) mEq/L Potassium 4.4 4.0 (3.5-4.5) mEq/L Chloride 106 106 (98-109) mEq/L Carbon Dioxide 27 26 (19-29) mEq/L BUN 17 9 (7-20) mg/dL Creatinine 0.66 0.66 (0.57-1.11) mg/dL Glucose 152 H 149 H (70-99) mg/dL Calcium 8.3 L 8.5 L (8.6-10.8) mg/dL Adrenal panel 05/10/16 05/11/16 Range/Units 07:24 02:53 Sodium 141 140 (136-145) mEq/L Potassium 4.4 4.0 (3.5-4.5) mEq/L Chloride 106 106 (98-109) mEq/L Carbon Dioxide 27 26 (19-29) mEq/L BUN 17 9 (7-20) mg/dL Creatinine 0.66 0.66 (0.57-1.11) mg/dL Glucose 152 H 149 H (70-99) mg/dL Calcium 8.3 L 8.5 L (8.6-10.8) mg/dL Total Bilirubin 0.5 0.9 D (0.2-1.2) mg/dL AST 24 26 (5-34) Units/L ALT 17 17 (0-55) Units/L Alkaline Phosphatase 114 105 (38-126) Units/L Albumin 3.1 L D 3.0 L (3.5-5.0) g/dL - VTE Documentation of Mechanical Device: Intermittent pneumatic compression device Consult Discharge Plan - Plan Referrals: Stephanie Bobo, AUTO BATTERY BUILDER [Primary Care Provider] - - Attending Attestation I examined this patient and my medical decision-making was reviewed with the INSPECTOR DIALS/PA/Advanced Practice Nurse/Resident Physician. I agree with the documented findings, disposition and treatment plan as described except to the extent set forth below. <Antonio Martin - Last Filed: 05/11/16 15:28> Date of Encounter: 05/11/16 Objective Vital Signs - Last 8 Hours Temp Pulse Resp BP Pulse Ox 05/11/16 15:00 97.6 F 78 16 132/73 93 L 05/11/16 10:52 97.5 F L 67 18 123/72 94 L Intake and Output 05/10/16 05/11/16 05/11/16 23:59 07:59 15:59 Intake Total 1313 / 1313 300 / 300 706 / 706 Output Total 1400 / 1400 1600 / 1600 800 / 800 Balance -87 / -87 -1300 / -1300 -94 / -94 Intake: IV Fluids 323 / 323 100 / 100 706 / 706 0.9 % Sodium Chloride 1, 223 / 223 606 / 606 000 ML @ 100 mls/hr IVC . Q10H [facility] Rx#:[id number] Zosyn 3.375 GM In 100 / 100 100 / 100 100 / 100 Dextrose 5% (Minibag+) 100 ML 100 ML @ 25 mls/hr IVPB Q8HR [facility] Rx#: [id number] Oral 990 / 990 200 / 200 Output: Urine 1400 / 1400 1600 / 1600 700 / 700 Emesis 100 / 100 Other: Meal Dinner NPO lunch Weight 102.8 kg Blood Glucose* 113 148 Patient Weight 05/11/16 23:59 Weight 102.8 kg - Labs 05/11/16 02:53 05/11/16 02:53 Diabetes panel 05/11/16 Range/Units 02:53 Sodium 140 (136-145) mEq/L Potassium 4.0 (3.5-4.5) mEq/L Chloride 106 (98-109) mEq/L Carbon Dioxide 26 (19-29) mEq/L BUN 9 (7-20) mg/dL Creatinine 0.66 (0.57-1.11) mg/dL Glucose 149 H (70-99) mg/dL Calcium 8.5 L (8.6-10.8) mg/dL AST 26 (5-34) Units/L ALT 17 (0-55) Units/L Alkaline Phosphatase 105 (38-126) Units/L Albumin 3.0 L (3.5-5.0) g/dL Calcium panel 05/11/16 Range/Units 02:53 Calcium 8.5 L (8.6-10.8) mg/dL Phosphorus 4.3 (2.3-4.7) mg/dL Albumin 3.0 L (3.5-5.0) g/dL Pituitary panel 05/11/16 Range/Units 02:53 Sodium 140 (136-145) mEq/L Potassium 4.0 (3.5-4.5) mEq/L Chloride 106 (98-109) mEq/L Carbon Dioxide 26 (19-29) mEq/L BUN 9 (7-20) mg/dL Creatinine 0.66 (0.57-1.11) mg/dL Glucose 149 H (70-99) mg/dL Calcium 8.5 L (8.6-10.8) mg/dL Adrenal panel 05/11/16 Range/Units 02:53 Sodium 140 (136-145) mEq/L Potassium 4.0 (3.5-4.5) mEq/L Chloride 106 (98-109) mEq/L Carbon Dioxide 26 (19-29) mEq/L BUN 9 (7-20) mg/dL Creatinine 0.66 (0.57-1.11) mg/dL Glucose 149 H (70-99) mg/dL Calcium 8.5 L (8.6-10.8) mg/dL Total Bilirubin 0.9 D (0.2-1.2) mg/dL AST 26 (5-34) Units/L ALT 17 (0-55) Units/L Alkaline Phosphatase 105 (38-126) Units/L Albumin 3.0 L (3.5-5.0) g/dL - Attending Attestation I personally saw and evaluated the patient with the resident today. The patient has chronic relapsing pancreatitis and an abnormal ultrasound of the gallbladder. I recommended laparoscopic cholecystectomy, cholangiogram, possible laparoscopic liver biopsy. We discussed the risks and benefits of surgery today and she wishes to proceed. We will perform her surgery later today. Antonio Martin MD FACS
[2016-05-11] MEDS: *HR* HYDROmorphone (PF) 1 MG/ML SYRINGE IVP PRN ×2 (08:12→19:59)
[2016-05-11] MEDS: Piperacillin/Tazobactam 3.375 GM in D5% in Water (Mini-Bag+) 100 ML IVPB SCH (08:15)
[2016-05-11] MEDS: Ondansetron 4 MG/2 ML VIAL IVP PRN ×2 (10:17→19:59)
[2016-05-11] MEDS ORDERED: *HR* HYDROmorphone (PF) 1 MG/ML SYRINGE IVP PRN ×3 (11:26→19:18)
[2016-05-11] MEDS ORDERED: Insulin DETEMIR 100 UNIT/ML X5UNITS SQ SCH (11:30)
[2016-05-11] MEDS ORDERED: D5% in 0.9% NACL 1,000 ML IVC SCH (11:30)
[2016-05-11] MEDS ORDERED: *HR* Promethazine 25 MG/ML VIAL IVP PRN (11:54)
--- NOTE | 2016-05-11 11:56 | Internal Med Progress Note ---
Date of Encounter: 05/11/16 Time of Encounter: 11:00 - Assessment and plan (1) Abdominal pain Current Visit: Yes Status: Acute Assessment and plan: Likely related to acute episode of chronic pancreatitis. Continue pain control with when necessary IV Dilaudid and oral oxycodone. Supportive care. Qualifiers: Abdominal location: right upper quadrant Qualified Code(s): R10.11 - Right upper quadrant pain (2) Gallbladder disease Current Visit: Yes Status: Acute Assessment and plan: Surgery consult noted. Plan for laparoscopic cholecystectomy today. (3) Pancreatitis Current Visit: Yes Status: Acute Assessment and plan: Acute on chronic pancreatitis at this time. Continue IV hydration. Monitor electrolytes and vital signs closely. Pain control as above. Supportive care. Resume clear liquid diet after surgery, as tolerated. Will start pancreatic enzyme supplements with meals. When necessary antiemetics. Patient requires outpatient GI follow-up. Qualifiers: Chronicity: chronic Pancreatitis type: unspecified pancreatitis type Qualified Code(s): K86.1 - Other chronic pancreatitis (4) COPD (chronic obstructive pulmonary disease) Current Visit: Yes Status: Chronic Assessment and plan: Patient has had no outpatient testing done and carries no formal diagnosis of COPD. We will start when necessary bronchodilators at this time due to mild wheezing. Supplemental oxygen as needed, currently not requiring any. 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 Accu-Chek blood glucose monitoring. Diabetic diet when able to tolerate. (6) Obesity Current Visit: Yes Status: Chronic Qualifiers: Obesity type: due to excess calories Obesity severity: non-morbid Qualified Code(s): E66.09 - Other obesity due to excess calories (7) GERD (gastroesophageal reflux disease) Current Visit: Yes Status: Chronic Qualifiers: Esophagitis presence: esophagitis presence not specified Qualified Code(s) : K21.9 - Gastro-esophageal reflux disease without esophagitis (8) HLD (hyperlipidemia) Current Visit: Yes Status: Chronic Qualifiers: Hyperlipidemia type: unspecified Qualified Code(s): E78.5 - Hyperlipidemia , unspecified (9) Essential hypertension Current Visit: Yes Status: Chronic - Subjective Interval history: Reports improvement in abdominal pain but still continues to have mild epigastric pain along with severe nausea and dry heaving. Has been nothing by mouth since yesterday, scheduled for cholecystectomy today. No chest pain or shortness of breath. No fever or chills. - Constitutional Vitals: Temp Pulse Resp BP Pulse Ox 97.5 F L 67 18 123/72 94 L 05/11/16 10:52 05/11/16 10:52 05/11/16 10:52 05/11/16 10:52 05/11/16 10:52 General appearance: Present: A&O X 3, obese, answers questions appropriately - Respiratory Respiratory exam: Present: CTAB. Absent: accessory muscle use, rales, rhonchi, wheezes - Cardiovascular Cardiovascular exam: Present: RRR, +S1, +S2. Absent: diastolic murmur, gallop, rubs, systolic murmur - GI/Abdominal GI/Abdominal exam: Present: normal bowel sounds, soft (Mild tenderness in epigastrium and left upper quadrant, improving), no peritoneal signs. Absent: distended, tenderness Internal Medicine: Result - Labs CBC & Chem 7: 05/11/16 02:53 05/11/16 02:53 Labs: Short CBC 05/11/16 Range/Units 02:53 WBC 9.2 (4.3-11.1) K/mcL Hgb 11.7 (11.5-15.4) g/dL Hct 36.9 (35.3-44.9) % Plt Count 215 (140-400) K/mcL Neutrophils # 5.6 (1.6-8.9) K/mcL BMP 05/11/16 02:53 Sodium 140 Potassium 4.0 Chloride 106 Carbon Dioxide 26 BUN 9 Creatinine 0.66 Glucose 149 H Calcium 8.5 L Liver Function 05/11/16 Range/Units 02:53 Total Bilirubin 0.9 D (0.2-1.2) mg/dL AST 26 (5-34) Units/L ALT 17 (0-55) Units/L Alkaline Phosphatase 105 (38-126) Units/L Albumin 3.0 L (3.5-5.0) g/dL - ABG Interpretation ABG results: PT/INR, D-dimer PT 11.6 Seconds (9.4-12.1) 05/09/16 17:34 - VTE Documentation of Mechanical Device: Intermittent pneumatic compression device Consult Discharge Plan - Plan Referrals: Stephanie Bobo, REHAB THERAPY MANAGER [Primary Care Provider] -
[2016-05-11] MEDS ORDERED: Lidocaine -MPF 4% 5 ML AMPUL ONE (15:50)
[2016-05-11] MEDS ORDERED: *HR* Midazolam HCl 2 MG/2 ML VIAL ONE (15:52)
[2016-05-11] MEDS ORDERED: *HR* FentaNYL (PF) 100 MCG/2 ML VIAL ONE ×2 (15:53→17:08)
[2016-05-11] MEDS ORDERED: Dexamethasone 4 MG/ML VIAL ONE (15:53)
[2016-05-11] MEDS ORDERED: *HR* Succinylcholine 200 MG/10 ML VIAL IVP ONE (15:53)
[2016-05-11] MEDS ORDERED: *HR* Propofol 200 MG/20 ML VIAL IVP ONE ×2 (15:53→17:49)
[2016-05-11] MEDS ORDERED: Ondansetron 4 MG/2 ML VIAL ONE (15:53)
[2016-05-11] MEDS ORDERED: *HR* Rocuronium Bromide 50 MG/5 ML VIAL ONE (15:53)
[2016-05-11] MEDS ORDERED: Neostigmine Methylsulfate 3 MG/3 ML SYRINGE ONE (15:57)
--- NOTE | 2016-05-11 15:57 | Anesthesia Evaluation PreOp ---
Date of Encounter: 05/11/16 Time of Encounter: 15:55 - Past History Planned Operation: lap cholecyst c cholangiogram Cardiac History: HTN, Other (03/06 stress, neg ischemia, ef 68) Pulmonary History: Former smoker, COPD, Snore HAND CELL TUBER History: Other (depression) Other Medical History: Diabetes Type II, GERD, Other (chronic pancreatitis) Anesthesia History: No Prior Anesthetic Complications, Past Anesthesia (renea) Alcohol Use: none Drug use: none Medications and Allergies Albuterol Sulfate [Proair Hfa] 2 puff IH Q4H PRN 05/10/16 [History] Amlodipine [Norvasc] 5 mg PO DAILY 05/10/16 [History] Aspirin [Lo-Dose Aspirin EC] 81 mg PO DAILY 05/10/16 [History] Carvedilol [Coreg] 12.5 mg PO BID 05/10/16 [History] Ferrous Sulfate [Iron] 325 mg PO DAILY 05/10/16 [History] Furosemide [Lasix] 20 mg PO DAILY 05/10/16 [History] Insulin Glargine,Hum.rec.anlog [Lantus Solostar] 45 unit SQ HS 05/10/16 [History ] Insulin LISPRO [Humalog Kwikpen U-100] 15 unit SQ TIDWM 05/10/16 [History] Loratadine [Allergy Relief] 10 mg PO DAILY 05/10/16 [History] Omeprazole 20 mg PO DAILY 05/10/16 [History] Paroxetine HCl [Paxil] 20 mg PO DAILY 05/10/16 [History] Pravastatin Sodium [Pravachol] 20 mg PO DAILY 05/10/16 [History] Allergies naproxen [From Naprosyn] Allergy (Verified 05/24/15 12:14) Itching tramadol Allergy (Verified 05/24/15 14:21) Itching - Meds/Allergy Pre-op Review Medications Reviewed: Yes (chronic steroids, zosyn at 1534) Allergies Reviewed: Yes Beta Blockers on Current Med List: Yes (coreg) If Beta Blockers taken, Date/Time (Last Dose taken): pt has not received Anesthesia Results - Labs 05/11/16 02:53 05/11/16 02:53 - Imaging EKG: report reviewed (st) Anesthesia Exam Vital Signs/O2 Sat/Glucose, Most Current Temp Pulse Resp BP Pulse Ox 05/11/16 15:00 97.6 F 78 16 132/73 93 L Blood glucose: 143 Height: 1.68 Weight: 103 NPO (# of Hours): >8 - HEENT Pupil (Motor): Pupils equal, EOMI Mallampati: III Teeth: Poor dentition Oral Opening: Greater than 3 (good underbite) - HAND CELL TUBER LOC: Oriented HAND CELL TUBER Motor: Normal RUE, Normal LUE, Normal RLE, Normal LLE, Normal Face HAND CELL TUBER Sensory: Normal: RUE, LUE, RLE, LLE, Face - Cardiac Rhythm: Regular Murmur: None - Pulmonary Breath Sounds: bilateral Clear Respiratory Effort: Symmetrical Anesthesia Assess/Plan ASA Score: 2 Modified Sil Scale for Level of Consciousness: Cooperative, oriented, and tranquil Anesthetic Plan: General Monitoring Plan: Standard Monitors Recovery Plan: PACU
[2016-05-11] MEDS ORDERED: Piperacillin/Tazobactam 3.375 GM in D5% in Water (Mini-Bag+) 100 ML IVPB SCH (16:00)
[2016-05-11] MEDS ORDERED: Ringers Solution, Lactated 1,000 ML IVC SCH (16:15)
[2016-05-11] MEDS ORDERED: *HR* Labetalol 100 MG/20 ML MDV IVP PRN (16:33)
[2016-05-11] MEDS ORDERED: *HR* Metoprolol 5 MG/5 ML VIAL IVP ONE (16:34)
[2016-05-11] MEDS ORDERED: *HR* HYDROmorphone 2 MG/ML SYRINGE ONE (17:13)
--- NOTE | 2016-05-11 18:13 | Operative Note ---
Date of procedure: 05/11/16 Pre-op diagnosis: Cholelithiasis and chronic pancreatitis Post-op diagnosis: same Procedure: Laparoscopic cholecystectomy, attempted cholangiogram. Laparoscopic liver biopsy Anesthesia: LINDA Surgeon: Antonio Martin Estimated blood loss (cc): 50 Specimen: Gallbladder and contents Condition: stable Disposition: PACU Procedure in Detail: Laparoscopic cholecystectomy and attempted intraoperative cholangiogram Operative procedure after informed consent and appropriate patient identification timeout the patient's take major operating suite and placed supine position given adequate general endotracheal anesthesia the abdomen is prepped and draped in sterile fashion utilizing ChloraPrep standard draping techniques timeout was taken patient is identified. I made a vertical midline incision below the umbilicus dissected down to level of fascia there are 2 traction stitches placed in the abdominal cavity was entered visually. A Zamora trocar was placed in the abdomen and the abdomen was insufflated to 15 mmHg pressure CO2 the gallbladder was visualized. The abdomen had multiple filmy anterior abdominal wall adhesions. A placement 11 port in the subxiphoid area and 2 5 mm ports in the subcostal area. I divided all of the anterior abdominal wall adhesions. The gallbladder was completely encased in chronic inflammatory adhesions before divided. The gallbladder was grasped and elevated. A variety of blunt and sharp dissection techniques were used to isolate the cystic duct and cystic artery. The cystic artery was controlled with 2 surgical clips proximally and one distally and it was divided I placed a surgical clip on the neck the gallbladder and attempted to obtain an intraoperative cholangiogram. When I divided the cystic duct to place the cholangiogram catheter there was arterial bleeding from the small attached artery that I could not stop. I could not adequately visualize the lumen of the cystic duct. I aborted the cholangiogram attempt. The cholangiocatheter was removed and the cystic duct was controlled with 2 surgical clips proximally and was divided the gallbladder was removed from the gallbladder fossae using electrocautery. The gallbladder was removed through the #11 port site using a specimen bag. I replaced the #11 port and irrigated with copious amounts of antibiotic containing solution. The liver was markedly abnormal. There appeared to be not only fatty infiltration but also dilated veins that may represent early portal hypertension area I decided to perform laparoscopic liver biopsy. 2 core needle biopsies were taken and sent for pathologic evaluation There is no evidence of bleeding or bile leak. All trochars were removed. Fascia was closed with 0 Vicryl skin with 2-0 and 4-0 Vicryl She tolerated the procedure well and was transferred to recovery in stable condition
--- NOTE | 2016-05-11 18:52 | Anesthesia Evaluation Post Op ---
Date of Encounter: 05/11/16 Time of Encounter: 18:52 - Vital Signs Vital Signs: Vital Signs/O2 Sat/Glucose, Most Current Temp Pulse Resp BP Pulse Ox 05/11/16 18:37 70 14 174/73 95 05/11/16 18:27 76 14 172/81 96 05/11/16 18:17 98.1 F 75 14 166/78 96 05/11/16 15:00 97.6 F 78 16 132/73 93 L - Lungs Lungs: Clear Ascult./Percussion - Airway Airway: Non-obstructed - Cardiovascular Regular Rate - Mental Status Mental Status: Alert & Oriented, Answers Appropriately - Pain Pain Scale: 0 - Nausea Vomiting Nausea Vomiting: Not Present - Hydration Hydration: Tolerates oral liquids - Discharge PostOp Status: Transfer Patient to floor
[2016-05-11] MEDS ORDERED: *HR* Dextrose 50 % in Water (Syg) 50 ML SYRINGE IVP PRN (19:18)
[2016-05-11] MEDS ORDERED: D5% in Water 1,000 ML IV PRN (19:18)
[2016-05-11] MEDS ORDERED: Naloxone 0.4 MG/ML INJ IVP PRN (19:18)
[2016-05-11] MEDS ORDERED: Acetaminophen 325 MG TABLET PO PRN (19:18)
[2016-05-11] MEDS ORDERED: Dextrose Gel 15 GM PO PRN ×2 (19:18)
[2016-05-11] MEDS: D5% in 0.9% NACL 1,000 ML IVC SCH (20:00)
[2016-05-11] MEDS ORDERED: *HR* Promethazine 25 MG/ML VIAL IM STA (21:25)
[2016-05-11] MEDS ORDERED: Scopolamine Patch 1.5 MG PATCH.TD72 TD ONE (21:25)
[2016-05-12] MEDS ORDERED: Piperacillin/Tazobactam 3.375 GM in D5% in Water (Mini-Bag+) 100 ML IVPB SCH
[2016-05-12] MEDS ORDERED: *HR* Promethazine 25 MG/ML VIAL IVP PRN (00:15)
[2016-05-12] MEDS: Insulin LISPRO 300 UNITS/3 ML VIAL SQ SCH ×5 (00:20→22:02)
[2016-05-12] MEDS: *HR* HYDROmorphone (PF) 1 MG/ML SYRINGE IVP PRN ×2 (00:21→06:44)
[2016-05-12 06:02] LABS: Basophils % 0.1 %; Hematocrit 32.3 % (35.3-44.9); Immature Granulocytes % 0.6 % (0-4); Lymphocytes # 1.8 K/mcL (0.6-4.6); Lymphocytes % 10.5 %; Mean Corpuscular Hemoglobin 25.5 pg (28.0-33.3); Mean Corpuscular Volume 82.4 fL (83.0-100.0); Mean Platelet Volume 10.4 fL (9.4-12.4); Monocytes # 1.2 K/mcL (0.0-1.3); Neutrophils # 13.9 K/mcL (1.6-8.9); Platelet Count 369 K/mcL (140-400); Red Blood Count 3.92 M/mcL (3.82-4.97); Red Cell Distribution Width 13.5 % (11.5-14.5); Segmented Neutrophils % 81.8 %
[2016-05-12 06:15] LABS: Alanine Aminotransferase 45 Units/L (0-55); Albumin 3.1 g/dL (3.5-5.0); Albumin/Globulin Ratio 0.9 (1.1-2.2); Alkaline Phosphatase 119 Units/L (38-126); Aspartate Amino Transferase 53 Units/L (5-34); BUN/Creatinine Ratio 14 (6-26); Bilirubin,Total 0.7 mg/dL (0.2-1.2); Blood Urea Nitrogen 12 mg/dL (7-20); Calcium 8.8 mg/dL (8.6-10.8); Carbon Dioxide 26 mEq/L (19-29); Chloride 102 mEq/L (98-109); Globulin 3.3 g/dL (2.4-3.5); Glucose 365 mg/dL (70-99); Magnesium 1.4 mg/dL (1.6-2.6); Osmolality,Calculated 299 (280-300); Phosphorous 4.6 mg/dL (2.3-4.7); Potassium 4.5 mEq/L (3.5-4.5); Sodium 137 mEq/L (136-145); Total Protein 6.4 g/dL (6.0-8.3); eGFR For African Americans > 60 (> 60); eGFR For Non-African Americans > 60 (> 60)
--- NOTE | 2016-05-12 06:21 | Electrocardiograph Report ---
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
[2016-05-12] MEDS: D5% in 0.9% NACL 1,000 ML IVC SCH (06:43)
[2016-05-12] MEDS: Ondansetron 4 MG/2 ML VIAL IVP PRN ×2 (06:44→17:13)
--- NOTE | 2016-05-12 07:49 | General Surgery Progress Note ---
<Jerry Alvarado - Last Filed: 05/12/16 09:57> Date of Encounter: 05/12/16 Time of Encounter: 07:15 - Assessment and Plan (1) Gallbladder disease Current Visit: Yes Status: Acute S/p laparoscopic cholecystectomy, attempted intraoperative cholangiogram, and laparoscopic liver biopsy on 05/11/[address] Martin (POD#1). Will continue to monitor on clear liquid diet until patient is passing flatus or has normoactive bowel sounds. Continue with IVFs Zosyn was discontinued post-op. Continue with pain control with Dilaudid 0.5mg IV q4hr prn, Marshall 5-325mg q4hr PO prn, and tylenol 650mg PO q6hr prn. Continue antiemetics as needed. Encouraged IS use and ambulation. (2) Pancreatitis Current Visit: Yes Status: Acute Acute on chronic pancreatitis with gall bladder disease. Pt is POD#1 for laparocsopic cholecystectomy with attempted cholangiogram and laparoscopic liver biopsy. On clear liquid diet. Continue with IVFs Continue pain management, as above Qualifiers: Chronicity: chronic Pancreatitis type: unspecified pancreatitis type Qualified Code(s): K86.1 - Other chronic pancreatitis (3) Leukocytosis Current Visit: Yes Status: Acute WBC 17.0 today (05/12). Pt has been afebrile overnight. 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 Continue with SSI and monitor. Management per medicine team. (5) DVT prophylaxis Current Visit: Yes Status: Acute Continue SCDs for DVT prophylaxis Subjective Narrative: The patient is POD#1 for laparoscpic cholecystectomy. The patient tolerated the procedure well. She complains of mid epigastric abdominal pain and RUQ soreness that radiates to her right side of her neck and shoulder. Her pain is controlled on IV pain medications. She had some episodes of nausea overnight, but better this morning. She has not had a bowel movement since 3 days ago. No other complaints. No fevers or chill. Objective Vital Signs - Last 8 Hours Temp Pulse Resp BP Pulse Ox 05/12/16 04:25 98.6 F 66 14 121/68 94 L Intake and Output 05/11/16 05/11/16 05/12/16 15:59 23:59 07:59 Intake Total 904 / 904 0 / 0 1100 / 1100 Output Total 800 / 800 675 / 675 300 / 300 Balance 104 / 104 -675 / -675 800 / 800 Intake: IV Fluids 904 / 904 1100 / 1100 0.9 % Sodium Chloride 1, 606 / 606 000 ML @ 100 mls/hr IVC . Q10H [facility]A Rx#:[id number] D5% And 0.9% Nacl 1000 Ml 198 / 198 1000 / 1000 1,000 ML @ 75 mls/hr IVC .[id number] CARA Rx#: [id number] Zosyn 3.375 GM In 100 / 100 100 / 100 Dextrose 5% (Minibag+) 100 ML 100 ML @ 25 mls/hr IVPB Q8HR CARA Rx#: [id number] Oral 0 / 0 0 / 0 Output: Urine 700 / 700 625 / 625 300 / 300 Emesis 100 / 100 Estimated Blood Loss 50 / 50 Other: Meal NPO lunch NPO dinner Blood Glucose* 148 335 340 - General physical appearance well developed, well nourished, no distress - Eyes normal ocular movement - ENT normal mucosa - Neck Neck exam: trachea midline - Respiratory normal respiratory effort, clear to auscultation - Cardiovascular Cardiovascular exam: Present: RRR - Abdomen Abdomen: Present: bowel sounds present (hypoactive), soft, tender (RUQ and RLQ) - Incision Incision: Present: clean and dry, intact. Absent: erythema - Integumentary no rash - Neurologic CN 2-12 grossly intact - Psychiatric oriented to time, oriented to person, oriented to place - Labs 05/12/16 05:41 05/12/16 05:41 Diabetes panel 05/12/16 Range/Units 05:41 Sodium 137 (136-145) mEq/L Potassium 4.5 (3.5-4.5) mEq/L Chloride 102 (98-109) mEq/L Carbon Dioxide 26 (19-29) mEq/L BUN 12 (7-20) mg/dL Creatinine 0.84 (0.57-1.11) mg/dL Glucose 365 H (70-99) mg/dL Calcium 8.8 (8.6-10.8) mg/dL AST 53 H (5-34) Units/L ALT 45 (0-55) Units/L Alkaline Phosphatase 119 (38-126) Units/L Albumin 3.1 L (3.5-5.0) g/dL Calcium panel 05/12/16 Range/Units 05:41 Calcium 8.8 (8.6-10.8) mg/dL Phosphorus 4.6 (2.3-4.7) mg/dL Albumin 3.1 L (3.5-5.0) g/dL Pituitary panel 05/12/16 Range/Units 05:41 Sodium 137 (136-145) mEq/L Potassium 4.5 (3.5-4.5) mEq/L Chloride 102 (98-109) mEq/L Carbon Dioxide 26 (19-29) mEq/L BUN 12 (7-20) mg/dL Creatinine 0.84 (0.57-1.11) mg/dL Glucose 365 H (70-99) mg/dL Calcium 8.8 (8.6-10.8) mg/dL Adrenal panel 05/12/16 Range/Units 05:41 Sodium 137 (136-145) mEq/L Potassium 4.5 (3.5-4.5) mEq/L Chloride 102 (98-109) mEq/L Carbon Dioxide 26 (19-29) mEq/L BUN 12 (7-20) mg/dL Creatinine 0.84 (0.57-1.11) mg/dL Glucose 365 H (70-99) mg/dL Calcium 8.8 (8.6-10.8) mg/dL Total Bilirubin 0.7 (0.2-1.2) mg/dL AST 53 H (5-34) Units/L ALT 45 (0-55) Units/L Alkaline Phosphatase 119 (38-126) Units/L Albumin 3.1 L (3.5-5.0) g/dL - VTE Documentation of Mechanical Device: Intermittent pneumatic compression device Consult Discharge Plan - Plan Referrals: Stephanie Bobo, TRANSPORTATION [employer] [Primary Care Provider] - - Attending Attestation I examined this patient and my medical decision-making was reviewed with the COMPLETION SUPERVISOR/PA/Advanced Practice Nurse/Resident Physician. I agree with the documented findings, disposition and treatment plan as described except to the extent set forth below. <Antonio Martin - Last Filed: 05/12/16 15:51> Objective Intake and Output 05/11/16 05/12/16 05/12/16 23:59 07:59 15:59 Intake Total 0 / 0 1100 / 1100 240 / 240 Output Total 675 / 675 300 / 300 150 / 150 Balance -675 / -675 800 / 800 90 / 90 Intake: IV Fluids 1100 / 1100 D5% And 0.9% Nacl 1000 Ml 1000 / 1000 1,000 ML @ 75 mls/hr IVC .[id number] [facility]A Rx#: [id number] Zosyn 3.375 GM In 100 / 100 Dextrose 5% (Minibag+) 100 ML 100 ML @ 25 mls/hr IVPB Q8HR CARA Rx#: [id number] Oral 0 / 0 0 / 0 240 / 240 Output: Urine 625 / 625 300 / 300 Emesis 150 / 150 Estimated Blood Loss 50 / 50 Other: Meal NPO dinner Blood Glucose* 335 340 327 - Labs 05/12/16 05:41 05/12/16 05:41 Diabetes panel 05/12/16 Range/Units 05:41 Sodium 137 (136-145) mEq/L Potassium 4.5 (3.5-4.5) mEq/L Chloride 102 (98-109) mEq/L Carbon Dioxide 26 (19-29) mEq/L BUN 12 (7-20) mg/dL Creatinine 0.84 (0.57-1.11) mg/dL Glucose 365 H (70-99) mg/dL Calcium 8.8 (8.6-10.8) mg/dL AST 53 H (5-34) Units/L ALT 45 (0-55) Units/L Alkaline Phosphatase 119 (38-126) Units/L Albumin 3.1 L (3.5-5.0) g/dL Calcium panel 05/12/16 Range/Units 05:41 Calcium 8.8 (8.6-10.8) mg/dL Phosphorus 4.6 (2.3-4.7) mg/dL Albumin 3.1 L (3.5-5.0) g/dL Pituitary panel 05/12/16 Range/Units 05:41 Sodium 137 (136-145) mEq/L Potassium 4.5 (3.5-4.5) mEq/L Chloride 102 (98-109) mEq/L Carbon Dioxide 26 (19-29) mEq/L BUN 12 (7-20) mg/dL Creatinine 0.84 (0.57-1.11) mg/dL Glucose 365 H (70-99) mg/dL Calcium 8.8 (8.6-10.8) mg/dL Adrenal panel 05/12/16 Range/Units 05:41 Sodium 137 (136-145) mEq/L Potassium 4.5 (3.5-4.5) mEq/L Chloride 102 (98-109) mEq/L Carbon Dioxide 26 (19-29) mEq/L BUN 12 (7-20) mg/dL Creatinine 0.84 (0.57-1.11) mg/dL Glucose 365 H (70-99) mg/dL Calcium 8.8 (8.6-10.8) mg/dL Total Bilirubin 0.7 (0.2-1.2) mg/dL AST 53 H (5-34) Units/L ALT 45 (0-55) Units/L Alkaline Phosphatase 119 (38-126) Units/L Albumin 3.1 L (3.5-5.0) g/dL - Attending Attestation The patient is seen and evaluated on morning rounds with the resident. Her incisions appear to be within normal limits. She is having some right shoulder pain and mild incisional pain. I was unable to obtain a cholangiogram during the procedure. She did however have a liver biopsy and cholecystectomy. The gallbladder was full of soft stones Antonio Martin MD FACS
[2016-05-12] MEDS ORDERED: Insulin DETEMIR 100 UNIT/ML X5UNITS SQ SCH (09:00)
[2016-05-12] MEDS: *HR* HYDROcodone/Acet 5/325 mg TABLET PO PRN ×3 (10:18→22:03)
[2016-05-12] MEDS ORDERED: Insulin DETEMIR 100 UNIT/ML X5UNITS SQ ONE (11:41)
[2016-05-12] MEDS ORDERED: *HR* HYDROmorphone 2 MG/ML SYRINGE IVP ONE (11:46)
[2016-05-12] MEDS ORDERED: Magnesium Sulfate 2 GM in D5% in Water 100 ML IVPB ONE (11:51)
[2016-05-12] MEDS ORDERED: Lactulose Oral Soln 20 GM/30 ML UDC PO ONE (11:51)
[2016-05-12] MEDS ORDERED: Insulin LISPRO 300 UNITS/3 ML VIAL SQ SCH (12:00)
[2016-05-12 12:46] LABS: Amylase 85 Units/L (25-125); Bilirubin,Direct 0.2 mg/dL (0.0-0.5); Bilirubin,Indirect 0.5 mg/dL (0.0-1.2); Lipase 214 Units/L (8-78)
[2016-05-12] MEDS ORDERED: Insulin Human Regular 10 UNIT in 0.9 % Sodium Chloride 10 ML IV ONE (15:45)
--- NOTE | 2016-05-12 19:00 | Internal Med Progress Note ---
Date of Encounter: 05/12/16 Time of Encounter: 11:00 - Assessment and plan (1) Abdominal pain Current Visit: Yes Status: Acute Qualifiers: Abdominal location: right upper quadrant Qualified Code(s): R10.11 - Right upper quadrant pain (2) Diabetes Current Visit: Yes Status: Acute Qualifiers: Diabetes mellitus type: type 2 Diabetes mellitus complication status: with unspecified complications Diabetes mellitus correction insulin use: with correction use Qualified Code(s): E11.8 - Type 2 diabetes mellitus with unspecified complications; Z79.4 - senior care (current) use of insulin (3) Gallbladder disease Current Visit: Yes Status: Acute (4) Leukocytosis Current Visit: Yes Status: Acute Qualifiers: Leukocytosis type: bandemia Qualified Code(s): D72.825 - Bandemia (5) Pancreatitis Current Visit: Yes Status: Acute Qualifiers: Chronicity: chronic Pancreatitis type: unspecified pancreatitis type Qualified Code(s): K86.1 - Other chronic pancreatitis - Time Spent With Patient Plan discussed with patient pharmacist disability case manager and RN . Increase Lantus, increased insulin sliding scale, add 1 dose of IV insulin bolus, monitor lipase , amylase and liver function test, KUB no evidence of small bowel obstruction, lactulose to help with constipation, counseling on lifestyle modification, dietary consult for diabetes. Possible discharge next 24 hours. Check CBC next a.m. insulin sliding scale every 4 hours. Replace magnesium. Check electrolytes next a.m. - Subjective Interval history: Patient complaining of nausea, diffuse abdominal pain, marked decrease oral intake. persistent blood sugar elevation. High blood sugar at home 200-300. NO BM yet - Constitutional Vitals: Temp Pulse Resp BP Pulse Ox 98.0 F 131 18 140/77 94 L 05/12/16 18:48 05/12/16 18:48 05/12/16 18:48 05/12/16 18:48 05/12/16 18:48 General appearance: Present: A&O X 3, obese, answers questions appropriately - Head Head exam: Present: atraumatic, normocephalic - Neck Neck exam general surgery: Present: supple, trachea midline. Absent: lymphadenopathy - Respiratory Respiratory exam: Present: CTAB. Absent: accessory muscle use, rales, rhonchi, wheezes - Cardiovascular Cardiovascular exam: Present: RRR, +S1, +S2. Absent: diastolic murmur, gallop, rubs, systolic murmur - GI/Abdominal GI/Abdominal exam: Present: distended, normal bowel sounds, soft, tenderness ( Diffuse abdominal tenderness), no peritoneal signs - Extremities Exam Extremities exam: Present: warm, radial pulses palpable and symetrical. Absent : calf tenderness, cyanotic, pedal edema Internal Medicine: Result - Labs CBC & Chem 7: 05/12/16 05:41 05/12/16 05:41 Labs: Short CBC 05/12/16 Range/Units 05:41 WBC 17.0 H D (4.3-11.1) K/mcL Hgb 10.0 L D (11.5-15.4) g/dL Hct 32.3 L (35.3-44.9) % Plt Count 369 D (140-400) K/mcL Neutrophils # 13.9 H (1.6-8.9) K/mcL BMP 05/12/16 05:41 Sodium 137 Potassium 4.5 Chloride 102 Carbon Dioxide 26 BUN 12 Creatinine 0.84 Glucose 365 H Calcium 8.8 Liver Function 05/12/16 Range/Units 05:41 Total Bilirubin 0.7 (0.2-1.2) mg/dL Direct Bilirubin 0.2 (0.0-0.5) mg/dL AST 53 H (5-34) Units/L ALT 45 (0-55) Units/L Alkaline Phosphatase 119 (38-126) Units/L Albumin 3.1 L (3.5-5.0) g/dL - ABG Interpretation ABG results: PT/INR, D-dimer PT 11.6 Seconds (9.4-12.1) 05/09/16 17:34 - Impressions Impressions KUB X-Ray 05/12/16 12:11 IMPRESSION: 1. Indeterminate paucity of small bowel gas with no findings suggestive of obstruction. 2. Minimal stool. D/ / Jaden Ascencio MD / Jaden Ascencio MD Interpreting Provider: Jaden Ascencio MD - VTE Documentation of Mechanical Device: Intermittent pneumatic compression device Consult Discharge Plan - Plan Referrals: Stephanie Bobo, PRODUCTION CLERK [Primary Care Provider] -
[2016-05-12] MEDS: Insulin DETEMIR 100 UNIT/ML X5UNITS SQ SCH (22:01)
[2016-05-13] MEDS: Insulin LISPRO 300 UNITS/3 ML VIAL SQ SCH ×9 (00:18→20:34)
[2016-05-13] MEDS: *HR* HYDROcodone/Acet 5/325 mg TABLET PO PRN ×3 (05:25→20:33)
[2016-05-13 06:08] LABS: Alanine Aminotransferase 31 Units/L (0-55); Albumin 3.3 g/dL (3.5-5.0); Alkaline Phosphatase 103 Units/L (38-126); Aspartate Amino Transferase 32 Units/L (5-34); BUN/Creatinine Ratio 24 (6-26); Blood Urea Nitrogen 16 mg/dL (7-20); Calcium 8.6 mg/dL (8.6-10.8); Carbon Dioxide 26 mEq/L (19-29); Chloride 103 mEq/L (98-109); Globulin 3.3 g/dL (2.4-3.5); Glucose 150 mg/dL (70-99); Magnesium 1.8 mg/dL (1.6-2.6); Osmolality,Calculated 288 (280-300); Phosphorous 2.7 mg/dL (2.3-4.7); Potassium 3.8 mEq/L (3.5-4.5); Sodium 137 mEq/L (136-145); Total Protein 6.6 g/dL (6.0-8.3); eGFR For African Americans > 60 (> 60); eGFR For Non-African Americans > 60 (> 60)
[2016-05-13 06:53] LABS: Basophils % 0.2 %; Eosinophils # 0.2 K/mcL (0.0-0.6); Eosinophils % 0.8 %; Hematocrit 27.1 % (35.3-44.9); Hemoglobin 8.6 g/dL (11.5-15.4); Immature Granulocytes % 0.6 % (0-4); Immature Platelets 4.4 % (1.1-6.1); Lymphocytes # 3.7 K/mcL (0.6-4.6); Lymphocytes % 20.6 %; Mean Corpuscular HGB Conc 31.7 g/dL (31.6-35.5); Mean Corpuscular Hemoglobin 25.9 pg (28.0-33.3); Mean Corpuscular Volume 81.6 fL (83.0-100.0); Mean Platelet Volume 10.2 fL (9.4-12.4); Monocytes # 1.7 K/mcL (0.0-1.3); Monocytes % 9.3 %; Neutrophils # 12.3 K/mcL (1.6-8.9); Platelet Count 352 K/mcL (140-400); Red Blood Count 3.32 M/mcL (3.82-4.97); Red Cell Distribution Width 13.8 % (11.5-14.5); Segmented Neutrophils % 68.5 %
--- NOTE | 2016-05-13 07:44 | General Surgery Progress Note ---
<Jerry Alvarado - Last Filed: 05/13/16 11:21> Date of Encounter: 05/13/16 Time of Encounter: 06:50 - Assessment and Plan (1) Gallbladder disease Status: Acute S/p laparoscopic cholecystectomy, attempted intraoperative cholangiogram, and laparoscopic liver biopsy on 05/11/[address] Martin (POD#2). The patient reports that she had a bowel movement yesterday. Continue with pain control with Dilaudid 0.5mg IV q4hr prn, Bladen 5-325mg q4hr PO prn, and tylenol 650mg PO q6hr prn. Continue antiemetics as needed. Encouraged IS use and ambulation. From a surgical standpoint this patient is cleared for discharge and outpatient followup with Dr. Martin. (2) Pancreatitis Status: Acute Acute on chronic pancreatitis with gall bladder disease. Pt is POD#2 for laparocsopic cholecystectomy with attempted cholangiogram and laparoscopic liver biopsy. Continue pain management and antiemetics. Qualifiers: Chronicity: chronic Pancreatitis type: unspecified pancreatitis type Qualified Code(s): K86.1 - Other chronic pancreatitis (3) Leukocytosis Status: Acute WBC 17.9 today (05/13). Likely reactive from surgery as her glucose is elevated (365) Pt had a Tmax of 99.7 overnight. Likely secondary to atelectasis. Incentive spirometry ordered and encouraged. 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 Continue with SSI and monitor. Management per medicine team. (5) DVT prophylaxis Status: Acute Continue SCDs for DVT prophylaxis Subjective Patient reports: no new complaints, feels better, pain is less, voiding w/o difficulty, flatus, bowel movement Narrative: The patient reports that she is still having sound nausea with meals, but overall is feeling much better today. She feels a little sore in her abdomen, but states the pain is much improved. Objective Vital Signs - Last 8 Hours Temp Pulse Resp BP Pulse Ox 05/13/16 05:00 98.4 F 114 16 139/71 93 L Intake and Output 05/12/16 05/12/16 05/13/16 15:59 23:59 07:59 Intake Total 240 / 240 770 / 770 Output Total 150 / 150 300 / 300 200 / 200 Balance 90 / 90 470 / 470 -200 / -200 Intake: Oral 240 / 240 770 / 770 Output: Urine 300 / 300 200 / 200 Emesis 150 / 150 Other: Stool Size Moderate Stool Consistency formed Stool Characteristics Normal for Patient Stool Color Brown # Bowel Movements 1 Blood Glucose* 327 255 152 - General physical appearance well developed, well nourished, no distress - Eyes normal ocular movement - ENT normal mucosa - Neck Neck exam: trachea midline - Respiratory normal respiratory effort, clear to auscultation - Cardiovascular Cardiovascular exam: Present: RRR - Abdomen Abdomen: Present: bowel sounds present, soft, tender (over surgical incisions) - Incision Incision: Present: clean and dry, intact - Neurologic CN 2-12 grossly intact - Musculoskeletal normal posture - Psychiatric oriented to time, oriented to person, oriented to place, speech is normal, memory intact - Labs 05/13/16 06:37 05/13/16 05:20 Diabetes panel 05/12/16 05/13/16 Range/Units 05:41 05:20 Sodium 137 137 (136-145) mEq/L Potassium 4.5 3.8 (3.5-4.5) mEq/L Chloride 102 103 (98-109) mEq/L Carbon Dioxide 26 26 (19-29) mEq/L BUN 12 16 (7-20) mg/dL Creatinine 0.84 0.66 (0.57-1.11) mg/dL Glucose 365 H 150 H (70-99) mg/dL Calcium 8.8 8.6 (8.6-10.8) mg/dL AST 53 H 32 (5-34) Units/L ALT 45 31 (0-55) Units/L Alkaline Phosphatase 119 103 (38-126) Units/L Albumin 3.1 L 3.3 L (3.5-5.0) g/dL Calcium panel 05/12/16 05/13/16 Range/Units 05:41 05:20 Calcium 8.8 8.6 (8.6-10.8) mg/dL Phosphorus 4.6 2.7 (2.3-4.7) mg/dL Albumin 3.1 L 3.3 L (3.5-5.0) g/dL Pituitary panel 05/12/16 05/13/16 Range/Units 05:41 05:20 Sodium 137 137 (136-145) mEq/L Potassium 4.5 3.8 (3.5-4.5) mEq/L Chloride 102 103 (98-109) mEq/L Carbon Dioxide 26 26 (19-29) mEq/L BUN 12 16 (7-20) mg/dL Creatinine 0.84 0.66 (0.57-1.11) mg/dL Glucose 365 H 150 H (70-99) mg/dL Calcium 8.8 8.6 (8.6-10.8) mg/dL Adrenal panel 05/12/16 05/13/16 Range/Units 05:41 05:20 Sodium 137 137 (136-145) mEq/L Potassium 4.5 3.8 (3.5-4.5) mEq/L Chloride 102 103 (98-109) mEq/L Carbon Dioxide 26 26 (19-29) mEq/L BUN 12 16 (7-20) mg/dL Creatinine 0.84 0.66 (0.57-1.11) mg/dL Glucose 365 H 150 H (70-99) mg/dL Calcium 8.8 8.6 (8.6-10.8) mg/dL Total Bilirubin 0.7 1.0 (0.2-1.2) mg/dL AST 53 H 32 (5-34) Units/L ALT 45 31 (0-55) Units/L Alkaline Phosphatase 119 103 (38-126) Units/L Albumin 3.1 L 3.3 L (3.5-5.0) g/dL - VTE Documentation of Mechanical Device: Intermittent pneumatic compression device Consult Discharge Plan - Plan Instructions: Pancreatitis (DC), Diabetes Mellitus Type 2 in Adults (DC) Additional Instructions: #1 may shower starting today, no tub bath for 2 weeks #2 wash incisions with soap and water and pat dry daily #3 no lifting, pushing, pulling more than 15 pounds for the next 2 weeks #4 no driving until off narcotics for 24 hours and able to safely react in the car #5 may climb stairs Referrals: Antonio Martin MD [Partnered Physician] - Stephanie Bobo CNP [Primary Care Provider] - Angie Cody CNP [Advanced Practice Nurse] - 05/28/16 11:30 am Prescriptions: Acetaminophen [Tylenol] 650 mg PO Q6HR PRN #60 tablet PRN Reason: Mild Pain (1-3) Ipratropium/Albuterol Neb [Duoneb] 3 ml IH Q6HR #360 vial.neb Cyanocobalamin (B-12) [Vitamin B12] 1,000 mcg PO DAILY #90 tablet Docusate Sodium [Colace] 100 mg PO DAILY #30 capsule Ergocalciferol (VITAMIN D2) [Drisdol (50,000 Unit)] 50,000 unit PO QWEEK #20 capsule Insulin LISPRO [HumaLOG] 0 units SQ TIDAC #3 vial Lactobacillus [Culturelle] 1 each PO DAILY #30 cap.sprink Levofloxacin 500 mg PO DAILY #6 tablet MetroNIDAZOLE [Flagyl] 500 mg PO TID #21 tablet Nebulizer/Compressor [Sootheneb Compressor Nebulizer] 1 each MC 2-4XD PRN #1 each PRN Reason: Shortness Of Breath/Wheezing Thiamine HCl 250 mg PO DAILY #30 tablet - Attending Attestation I examined this patient and my medical decision-making was reviewed with the BEVERAGE SPECIALIST/PA/Advanced Practice Nurse/Resident Physician. I agree with the documented findings, disposition and treatment plan as described except to the extent set forth below. <Antonio Martin - Last Filed: 05/15/16 08:19> Objective Vital Signs - Last 8 Hours Temp Pulse Resp BP Pulse Ox 05/13/16 10:15 98.5 F 114 16 101/61 93 L 05/13/16 08:00 94 L Intake and Output 05/12/16 05/13/16 05/13/16 23:59 07:59 15:59 Intake Total 770 / 770 720 / 720 Output Total 300 / 300 650 / 650 100 / 100 Balance 470 / 470 -650 / -650 620 / 620 Intake: Oral 770 / 770 720 / 720 Output: Urine 300 / 300 650 / 650 100 / 100 Other: Meal Breakfast Stool Size Moderate Small Stool Consistency formed soft Stool Characteristics Normal for Patient Stool Color Brown Brown # Bowel Movements 1 Blood Glucose* 255 152 169 - Labs 05/14/16 05:20 05/14/16 05:20 Diabetes panel 05/13/16 Range/Units 05:20 Sodium 137 (136-145) mEq/L Potassium 3.8 (3.5-4.5) mEq/L Chloride 103 (98-109) mEq/L Carbon Dioxide 26 (19-29) mEq/L BUN 16 (7-20) mg/dL Creatinine 0.66 (0.57-1.11) mg/dL Glucose 150 H (70-99) mg/dL Calcium 8.6 (8.6-10.8) mg/dL AST 32 (5-34) Units/L ALT 31 (0-55) Units/L Alkaline Phosphatase 103 (38-126) Units/L Albumin 3.3 L (3.5-5.0) g/dL Calcium panel 05/13/16 Range/Units 05:20 Calcium 8.6 (8.6-10.8) mg/dL Phosphorus 2.7 (2.3-4.7) mg/dL Albumin 3.3 L (3.5-5.0) g/dL Pituitary panel 05/13/16 Range/Units 05:20 Sodium 137 (136-145) mEq/L Potassium 3.8 (3.5-4.5) mEq/L Chloride 103 (98-109) mEq/L Carbon Dioxide 26 (19-29) mEq/L BUN 16 (7-20) mg/dL Creatinine 0.66 (0.57-1.11) mg/dL Glucose 150 H (70-99) mg/dL Calcium 8.6 (8.6-10.8) mg/dL Adrenal panel 05/13/16 Range/Units 05:20 Sodium 137 (136-145) mEq/L Potassium 3.8 (3.5-4.5) mEq/L Chloride 103 (98-109) mEq/L Carbon Dioxide 26 (19-29) mEq/L BUN 16 (7-20) mg/dL Creatinine 0.66 (0.57-1.11) mg/dL Glucose 150 H (70-99) mg/dL Calcium 8.6 (8.6-10.8) mg/dL Total Bilirubin 1.0 (0.2-1.2) mg/dL AST 32 (5-34) Units/L ALT 31 (0-55) Units/L Alkaline Phosphatase 103 (38-126) Units/L Albumin 3.3 L (3.5-5.0) g/dL - Attending Attestation The patient is seen and evaluated on morning rounds with the rest. Her pain is much improved today. She should be able to go home from a surgical standpoint. She is made a complete recovery from laparoscopic cholecystectomy and laparoscopic liver biopsy. Her incisions are condition. Glad to see her in several weeks' my office to review pathology results. Final decision discharge decision will be made by the admitting service. Antonio Martin MD FACS
[2016-05-13] MEDS: Insulin DETEMIR 100 UNIT/ML X5UNITS SQ SCH ×2 (08:41→20:45)
[2016-05-13] MEDS: Ondansetron 4 MG/2 ML VIAL IVP PRN (08:41)
[2016-05-13] MEDS: Aspirin Enteric Coated 81 MG Tablet PO SCH (10:05)
--- NOTE | 2016-05-13 17:29 | Internal Med Progress Note ---
Date of Encounter: 05/13/16 Time of Encounter: 09:30 - Assessment and plan (1) Abdominal pain Current Visit: Yes Status: Acute Qualifiers: Abdominal location: generalized Qualified Code(s): R10.84 - Generalized abdominal pain (2) Diabetes Current Visit: Yes Status: Acute Qualifiers: Diabetes mellitus type: type 2 Diabetes mellitus complication status: with unspecified complications Diabetes mellitus intermediate card tender insulin use: with mcfp use Qualified Code(s): E11.8 - Type 2 diabetes mellitus with unspecified complications; Z79.4 - nursing home (current) use of insulin (3) Gallbladder disease Current Visit: Yes Status: Acute (4) Leukocytosis Current Visit: Yes Status: Acute Qualifiers: Leukocytosis type: unspecified Qualified Code(s): D72.829 - Elevated white blood cell count, unspecified (5) Pancreatitis Current Visit: Yes Status: Acute Qualifiers: Chronicity: chronic Pancreatitis type: unspecified pancreatitis type Qualified Code(s): K86.1 - Other chronic pancreatitis - Time Spent With Patient With her persistent painand nausea and her abdominal exam , cannot r/p pertonitis will add flagyl and levaquin. will check chest x ray .protonix bid, monitor h/h . check juan josé profile and stool for occult blood and stool study. replace electrolytes PRN . Protonix bid 25 - 35 minutes - Subjective Interval history: patient continued to have diffuse abdominal pain much better compared to yesterday, she still continued to have nausea and dry heaves, intolerance to food, omplaining of dry cough and shortness of breath - Constitutional Vitals: Temp Pulse Resp BP Pulse Ox 98.5 F 114 16 101/61 93 L 05/13/16 10:15 05/13/16 10:15 05/13/16 10:15 05/13/16 10:15 05/13/16 10:15 General appearance: Present: A&O X 3, obese, answers questions appropriately - Head Head exam: Present: atraumatic, normocephalic - Respiratory Respiratory exam: Present: decreased breath sounds, prolonged expiratory phase, rales. Absent: accessory muscle use, rhonchi, wheezes - Cardiovascular Cardiovascular exam: Present: RRR, +S1, +S2. Absent: diastolic murmur, gallop, rubs, systolic murmur - GI/Abdominal GI/Abdominal exam: Present: normal bowel sounds, tenderness (diffuse abdominal tenderness and guarding), no peritoneal signs. Absent: distended - Extremities Exam Extremities exam: Present: warm, radial pulses palpable and symetrical. Absent : calf tenderness, cyanotic, pedal edema - Neurological Exam Neurological exam: Present: CN II-XII intact, oriented X3, no focal deficits. Absent: pronater drift, facial droop, speech deficit - Skin Skin exam: Present: dry, intact Internal Medicine: Result - Labs CBC & Chem 7: 05/13/16 06:37 05/13/16 05:20 Labs: Short CBC 05/13/16 Range/Units 06:37 WBC 17.9 H (4.3-11.1) K/mcL Hgb 8.6 L (11.5-15.4) g/dL Hct 27.1 L (35.3-44.9) % Plt Count 352 (140-400) K/mcL Neutrophils # 12.3 H (1.6-8.9) K/mcL BMP 05/13/16 05:20 Sodium 137 Potassium 3.8 Chloride 103 Carbon Dioxide 26 BUN 16 Creatinine 0.66 Glucose 150 H Calcium 8.6 Liver Function 05/13/16 Range/Units 05:20 Total Bilirubin 1.0 (0.2-1.2) mg/dL AST 32 (5-34) Units/L ALT 31 (0-55) Units/L Alkaline Phosphatase 103 (38-126) Units/L Albumin 3.3 L (3.5-5.0) g/dL - ABG Interpretation ABG results: PT/INR, D-dimer PT 11.6 Seconds (9.4-12.1) 05/09/16 17:34 - VTE Documentation of Mechanical Device: Graduated compression elastic hosiery Consult Discharge Plan - Plan Additional Instructions: #1 may shower starting today, no tub bath for 2 weeks #2 wash incisions with soap and water and pat dry daily #3 no lifting, pushing, pulling more than 15 pounds for the next 2 weeks #4 no driving until off narcotics for 24 hours and able to safely react in the car #5 may climb stairs Referrals: Antonio Martin MD [Partnered Physician] - Stephanie Bobo CNP [Primary Care Provider] - Obion,Angie A, LIFT TEAM TECHNICIAN [Advanced Practice Nurse] - 05/28/16 11:30 am Prescriptions: HYDROcodone/Acet 5/325 mg [[place] 5-325 mg] 1 tab PO Q4HR PRN #30 tablet PRN Reason: Moderate Pain (4-6) Docusate Sodium [Colace] 100 mg PO DAILY #30 capsule
[2016-05-13 17:53] LABS: Lipase 11 Units/L (8-78)
[2016-05-13] MEDS ORDERED: Levofloxacin 500 MG/100 ML 500 MG/100 ML BAG IVPB SCH (18:00)
[2016-05-13] MEDS: MetroNIDAZOLE 500 MG/100 ML 500 MG/100 ML BAG IVPB SCH (20:34)
[2016-05-13 20:42] LABS: Hematocrit 25.1 % (35.3-44.9); Hemoglobin 7.9 g/dL (11.5-15.4)
[2016-05-13 20:56] LABS: % Iron Saturation 6 % (15-50); Iron 19 mcg/dL (50-170); Transferrin 228 mg/dL (180-382)
[2016-05-13 21:17] LABS: Ferritin 213 ng/ml (5-204)
[2016-05-13] MEDS ORDERED: 0.9 % Sodium Chloride 250 ML ONE (22:33)
[2016-05-14] MEDS: Insulin LISPRO 300 UNITS/3 ML VIAL SQ SCH ×7 (00:41→16:06)
[2016-05-14] MEDS ORDERED: 0.9 % Sodium Chloride 500 ML IVC ONE (03:15)
[2016-05-14] MEDS ORDERED: 0.9 % Sodium Chloride 500 ML ONE (03:17)
[2016-05-14] MEDS: MetroNIDAZOLE 500 MG/100 ML 500 MG/100 ML BAG IVPB SCH ×2 (05:08→11:54)
[2016-05-14 06:17] LABS: Basophils % 0.2 %; Eosinophils # 0.2 K/mcL (0.0-0.6); Eosinophils % 1.9 %; Hematocrit 27.8 % (35.3-44.9); Hemoglobin 8.8 g/dL (11.5-15.4); Immature Granulocytes % 1.2 % (0-4); Immature Platelets 4.7 % (1.1-6.1); Lymphocytes # 3.6 K/mcL (0.6-4.6); Lymphocytes % 27.9 %; Mean Corpuscular HGB Conc 31.7 g/dL (31.6-35.5); Mean Corpuscular Hemoglobin 26.3 pg (28.0-33.3); Mean Corpuscular Volume 83.2 fL (83.0-100.0); Mean Platelet Volume 10.7 fL (9.4-12.4); Monocytes # 0.9 K/mcL (0.0-1.3); Monocytes % 7.3 %; Neutrophils # 7.9 K/mcL (1.6-8.9); Platelet Count 257 K/mcL (140-400); Red Blood Count 3.34 M/mcL (3.82-4.97); Red Cell Distribution Width 13.5 % (11.5-14.5); Segmented Neutrophils % 61.5 %
[2016-05-14 06:36] LABS: Alanine Aminotransferase 21 Units/L (0-55); Albumin 2.8 g/dL (3.5-5.0); Albumin/Globulin Ratio 0.8 (1.1-2.2); Alkaline Phosphatase 95 Units/L (38-126); Aspartate Amino Transferase 22 Units/L (5-34); BUN/Creatinine Ratio 18 (6-26); Bilirubin,Total 0.9 mg/dL (0.2-1.2); Blood Urea Nitrogen 11 mg/dL (7-20); Calcium 8.2 mg/dL (8.6-10.8); Carbon Dioxide 25 mEq/L (19-29); Chloride 105 mEq/L (98-109); Globulin 3.3 g/dL (2.4-3.5); Glucose 147 mg/dL (70-99); Magnesium 1.6 mg/dL (1.6-2.6); Osmolality,Calculated 286 (280-300); Phosphorous 2.5 mg/dL (2.3-4.7); Sodium 137 mEq/L (136-145); Total Protein 6.1 g/dL (6.0-8.3); eGFR For African Americans > 60 (> 60); eGFR For Non-African Americans > 60 (> 60)
--- NOTE | 2016-05-14 07:40 | General Surgery Progress Note ---
<Jerry Alvarado - Last Filed: 05/14/16 07:35> Date of Encounter: 05/14/16 Time of Encounter: 06:50 - Assessment and Plan (1) Gallbladder disease Status: Acute S/p laparoscopic cholecystectomy, attempted intraoperative cholangiogram, and laparoscopic liver biopsy on 05/11/[address] Martin (POD#3). The patient is progressing well after surgery. Encouraged IS use and ambulation. From a surgical standpoint this patient is cleared for discharge and outpatient followup with Dr. Martin is scheduled. (2) Pancreatitis Status: Acute Followup with PCP or GI specialist as an outpatient. Qualifiers: Chronicity: chronic Pancreatitis type: unspecified pancreatitis type Qualified Code(s): K86.1 - Other chronic pancreatitis (3) Leukocytosis Status: Acute WBC 12.9 today (05/14). 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 (5) DVT prophylaxis Status: Acute Continue SCDs for DVT prophylaxis Subjective Patient reports: feels better, pain is less, tolerating a regular diet, flatus, bowel movement Narrative: The patient states that she did not get much sleep last night as had episodes of hypoglycemia, hypotension, and had a blood transfusion. This morning she feels quite well and states that she is hoping to be able to go home. She reports that an X-ray was ordered, but never taken and that she has been told she has a left lower lobe pneumonia every time she has an X-ray ever since her first episode of pancreatitis one year ago. Objective Vital Signs - Last 8 Hours Temp Pulse Resp BP Pulse Ox 05/14/16 04:45 98.4 F 90 15 106/66 93 L 05/14/16 01:00 98.3 F 81 16 97/58 94 L Intake and Output 05/13/16 05/13/16 05/14/16 15:59 23:59 07:59 Intake Total 720 / 720 320 / 320 930 / 930 Output Total 100 / 100 100 / 100 300 / 300 Balance 620 / 620 220 / 220 630 / 630 Intake: IV Fluids 200 / 200 100 / 100 Levaquin 500mg/100mL 500 100 / 100 mg In 100 ml @ 100 mls/hr IVPB Q24H [facility] Rx#: [id number] Flagyl 500 MG/100 ML 500 100 / 100 100 / 100 mg In 100 ml @ 100 mls/hr IVPB Q8H [facility] Rx#: [id number] Oral 720 / 720 120 / 120 480 / 480 Blood Product 0 / 0 350 / 350 Rbcs Leuko Poor As-1 0 / 0 350 / 350 Unit [id number] Output: Urine 100 / 100 100 / 100 300 / 300 Other: Meal Breakfast Dinner Percent of Meal Consumed 95% Stool Size Small Stool Consistency soft Stool Color Brown Weight 97.5 kg Blood Glucose* 169 200 171 Patient Weight 05/14/16 23:59 Weight 97.5 kg - General physical appearance well developed, well nourished, no distress - Eyes normal ocular movement - ENT normal mucosa, atraumatic, normocephalic - Neck Neck exam: trachea midline - Respiratory normal respiratory effort, clear to auscultation (slight decreased breath sounds at the left lung base. ) - Cardiovascular Cardiovascular exam: Present: RRR - Abdomen Abdomen: Present: bowel sounds present, soft, non tender - Incision Incision: Present: clean and dry, intact - Integumentary other (some diffuse bruising noted around the lower abdomen) - Neurologic CN 2-12 grossly intact - Musculoskeletal normal posture - Psychiatric oriented to time, oriented to person, oriented to place, speech is normal, memory intact - Labs 05/14/16 05:20 05/14/16 05:20 Diabetes panel 05/13/16 05/14/16 Range/Units 05:20 05:20 Sodium 137 137 (136-145) mEq/L Potassium 3.8 4.0 (3.5-4.5) mEq/L Chloride 103 105 (98-109) mEq/L Carbon Dioxide 26 25 (19-29) mEq/L BUN 16 11 (7-20) mg/dL Creatinine 0.66 0.60 (0.57-1.11) mg/dL Glucose 150 H 147 H (70-99) mg/dL Calcium 8.6 8.2 L (8.6-10.8) mg/dL AST 32 22 (5-34) Units/L ALT 31 21 (0-55) Units/L Alkaline Phosphatase 103 95 (38-126) Units/L Albumin 3.3 L 2.8 L (3.5-5.0) g/dL Calcium panel 05/13/16 05/14/16 Range/Units 05:20 05:20 Calcium 8.6 8.2 L (8.6-10.8) mg/dL Phosphorus 2.7 2.5 (2.3-4.7) mg/dL Albumin 3.3 L 2.8 L (3.5-5.0) g/dL Pituitary panel 05/13/16 05/14/16 Range/Units 05:20 05:20 Sodium 137 137 (136-145) mEq/L Potassium 3.8 4.0 (3.5-4.5) mEq/L Chloride 103 105 (98-109) mEq/L Carbon Dioxide 26 25 (19-29) mEq/L BUN 16 11 (7-20) mg/dL Creatinine 0.66 0.60 (0.57-1.11) mg/dL Glucose 150 H 147 H (70-99) mg/dL Calcium 8.6 8.2 L (8.6-10.8) mg/dL Adrenal panel 05/13/16 05/14/16 Range/Units 05:20 05:20 Sodium 137 137 (136-145) mEq/L Potassium 3.8 4.0 (3.5-4.5) mEq/L Chloride 103 105 (98-109) mEq/L Carbon Dioxide 26 25 (19-29) mEq/L BUN 16 11 (7-20) mg/dL Creatinine 0.66 0.60 (0.57-1.11) mg/dL Glucose 150 H 147 H (70-99) mg/dL Calcium 8.6 8.2 L (8.6-10.8) mg/dL Total Bilirubin 1.0 0.9 (0.2-1.2) mg/dL AST 32 22 (5-34) Units/L ALT 31 21 (0-55) Units/L Alkaline Phosphatase 103 95 (38-126) Units/L Albumin 3.3 L 2.8 L (3.5-5.0) g/dL - VTE Documentation of Mechanical Device: Graduated compression elastic hosiery Consult Discharge Plan - Plan Instructions: Pancreatitis (DC), Diabetes Mellitus Type 2 in Adults (DC) Additional Instructions: #1 may shower starting today, no tub bath for 2 weeks #2 wash incisions with soap and water and pat dry daily #3 no lifting, pushing, pulling more than 15 pounds for the next 2 weeks #4 no driving until off narcotics for 24 hours and able to safely react in the car #5 may climb stairs Referrals: Antonio Martin MD [Partnered Physician] - Stephanie Bobo CNP [Primary Care Provider] - Angie Cody CNP [Advanced Practice Nurse] - 05/28/16 11:30 am Prescriptions: Acetaminophen [Tylenol] 650 mg PO Q6HR PRN #60 tablet PRN Reason: Mild Pain (1-3) Ipratropium/Albuterol Neb [Duoneb] 3 ml IH Q6HR #360 vial.neb Cyanocobalamin (B-12) [Vitamin B12] 1,000 mcg PO DAILY #90 tablet Docusate Sodium [Colace] 100 mg PO DAILY #30 capsule Ergocalciferol (VITAMIN D2) [Drisdol (50,000 Unit)] 50,000 unit PO QWEEK #20 capsule Insulin LISPRO [HumaLOG] 0 units SQ TIDAC #3 vial Lactobacillus [Culturelle] 1 each PO DAILY #30 cap.sprink Levofloxacin 500 mg PO DAILY #6 tablet MetroNIDAZOLE [Flagyl] 500 mg PO TID #21 tablet Nebulizer/Compressor [Sootheneb Compressor Nebulizer] 1 each MC 2-4XD PRN #1 each PRN Reason: Shortness Of Breath/Wheezing Thiamine HCl 250 mg PO DAILY #30 tablet - Attending Attestation I examined this patient and my medical decision-making was reviewed with the AUDIOVISUAL LIBRARIAN/PA/Advanced Practice Nurse/Resident Physician. I agree with the documented findings, disposition and treatment plan as described except to the extent set forth below. <Antonio Martin - Last Filed: 05/15/16 08:25> Objective Intake and Output 05/14/16 05/15/16 05/15/16 23:59 07:59 15:59 Intake Total 600 / 600 Balance 600 / 600 Intake: Oral 600 / 600 Other: Meal Dinner Percent of Meal Consumed 100% - Labs 05/14/16 05:20 05/14/16 05:20 - Attending Attestation The patient is seen in evaluated with the resident on morning rounds. Her pain is much improved and from our standpoint she is ready for discharge. Be glad to follow her in the office in 2 weeks. Condition on discharge much improved. Antonio Martin MD FACS
[2016-05-14] MEDS: Aspirin Enteric Coated 81 MG Tablet PO SCH (08:49)
[2016-05-14] MEDS: *HR* HYDROcodone/Acet 5/325 mg TABLET PO PRN ×3 (08:49→17:49)
[2016-05-14] MEDS: Insulin DETEMIR 100 UNIT/ML X5UNITS SQ SCH (08:50)
[2016-05-14] MEDS ORDERED: Ipratropium/Albuterol Neb 3 ML IH ONE (09:48)
[2016-05-14] MEDS ORDERED: Furosemide 20 MG/2 ML VIAL IVP ONE (11:17)
--- NOTE | 2016-05-14 17:51 | Discharge Summary ---
Date of Encounter: 05/14/16 Time of Encounter: 17:00 - Discharge Diagnosis (1) Abdominal pain Priority: Primary Status: Acute Qualifiers: Abdominal location: generalized Qualified Code(s): R10.84 - Generalized abdominal pain (2) Diabetes Priority: Secondary Status: Acute Qualifiers: Diabetes mellitus type: type 2 Diabetes mellitus complication status: with unspecified complications Diabetes mellitus adjunct faculty for medical terminology insulin use: with senior care use Qualified Code(s): E11.8 - Type 2 diabetes mellitus with unspecified complications; Z79.4 - care home (current) use of insulin (3) Gallbladder disease Priority: Primary Status: Acute (4) Leukocytosis Priority: Primary Status: Acute Qualifiers: Leukocytosis type: unspecified Qualified Code(s): D72.829 - Elevated white blood cell count, unspecified (5) Pancreatitis Priority: Secondary Status: Acute Qualifiers: Chronicity: chronic Pancreatitis type: unspecified pancreatitis type Qualified Code(s): K86.1 - Other chronic pancreatitis (6) COPD (chronic obstructive pulmonary disease) Priority: Secondary Status: Chronic Qualifiers: COPD type: unspecified COPD Qualified Code(s): J44.9 - Chronic obstructive pulmonary disease, unspecified - Discharge Medications Prescriptions: Acetaminophen [Tylenol] 650 mg PO Q6HR PRN #60 tablet PRN Reason: Mild Pain (1-3) Ipratropium/Albuterol Neb [Duoneb] 3 ml IH Q6HR #360 vial.neb Cyanocobalamin (B-12) [Vitamin B12] 1,000 mcg PO DAILY #90 tablet Docusate Sodium [Colace] 100 mg PO DAILY #30 capsule Ergocalciferol (VITAMIN D2) [Drisdol (50,000 Unit)] 50,000 unit PO QWEEK #20 capsule Insulin LISPRO [HumaLOG] 0 units SQ TIDAC #3 vial Lactobacillus [Culturelle] 1 each PO DAILY #30 cap.sprink Levofloxacin 500 mg PO DAILY #6 tablet MetroNIDAZOLE [Flagyl] 500 mg PO TID #21 tablet Nebulizer/Compressor [Sootheneb Compressor Nebulizer] 1 each MC 2-4XD PRN #1 each PRN Reason: Shortness Of Breath/Wheezing Thiamine HCl 250 mg PO DAILY #30 tablet Home Medications: Albuterol Sulfate [Proair Hfa] 2 puff IH Q4H PRN 05/10/16 [History] Amlodipine [Norvasc] 5 mg PO DAILY 05/10/16 [History] Aspirin [Lo-Dose Aspirin EC] 81 mg PO DAILY 05/10/16 [History] Carvedilol [Coreg] 12.5 mg PO BID 05/10/16 [History] Ferrous Sulfate [Iron] 325 mg PO DAILY 05/10/16 [History] Furosemide [Lasix] 20 mg PO DAILY 05/10/16 [History] Insulin LISPRO [Humalog Kwikpen U-100] 15 unit SQ TIDWM 05/10/16 [History] Loratadine [Allergy Relief] 10 mg PO DAILY 05/10/16 [History] Omeprazole 20 mg PO DAILY 05/10/16 [History] Paroxetine HCl [Paxil] 20 mg PO DAILY 05/10/16 [History] Pravastatin Sodium [Pravachol] 20 mg PO DAILY 05/10/16 [History] Docusate Sodium [Colace] 100 mg PO DAILY #30 capsule 05/13/16 [Rx] Acetaminophen [Tylenol] 650 mg PO Q6HR PRN #60 tablet 05/14/16 [Rx] Cyanocobalamin (B-12) [Vitamin B12] 1,000 mcg PO DAILY #90 tablet 05/14/16 [Rx] Ergocalciferol (VITAMIN D2) [Drisdol (50,000 Unit)] 50,000 unit PO QWEEK #20 capsule 05/14/16 [Rx] HYDROcodone/Acet 5/325 mg [[place] 5-325 mg] 1 tab PO Q6-8H PRN #60 tablet [Rx] Insulin Glargine,Hum.rec.anlog [Lantus Solostar] 35 unit SQ BID #3 vial [Rx] Insulin LISPRO [HumaLOG] 0 units SQ TIDAC #3 vial 05/14/16 [Rx] Ipratropium/Albuterol Neb [Duoneb] 3 ml IH Q6HR #360 vial.neb 05/14/16 [Rx] Lactobacillus [Culturelle] 1 each PO DAILY #30 cap.sprink 05/14/16 [Rx] Levofloxacin 500 mg PO DAILY #6 tablet 05/14/16 [Rx] MetroNIDAZOLE [Flagyl] 500 mg PO TID #21 tablet 05/14/16 [Rx] Nebulizer/Compressor [Sootheneb Compressor Nebulizer] 1 each MC 2-4XD PRN #1 each 05/14/16 [Rx] Thiamine HCl 250 mg PO DAILY #30 tablet 05/14/16 [Rx] Allergies/Adverse Reactions: Allergies naproxen [From Naprosyn] Allergy (Verified 05/24/15 12:14) Itching tramadol Allergy (Verified 05/24/15 14:21) Itching Date of admission: 05/09/16 23:35 Primary care physician: Stephanie Bobo CNP Consults: 05/11/16 08:27 Consult to Surgery [CONS] Routine Consulting Provider: Surgery [facility] Reason for Consult: gallbladder Call Completed: Yes 05/12/16 11:45 Consult to Driver Education Instructor [CONS] Stat Comment: Discharging clinician: Christiano Castanon - Patient Status Disposition: Home, Self-Care Condition: Fair Functional capacity at discharge: independent ambulation Overall status at discharge: patient is progressing back to baseline - Discharge Instructions Instructions: Pancreatitis (DC), Diabetes Mellitus Type 2 in Adults (DC) Follow Up With: Antonio Martin MD [Partnered Physician] - Stephanie Bobo CNP [Primary Care Provider] - Angie Cody CNP [Advanced Practice Nurse] - 05/28/16 11:30 am Additional Instructions: #1 may shower starting today, no tub bath for 2 weeks #2 wash incisions with soap and water and pat dry daily #3 no lifting, pushing, pulling more than 15 pounds for the next 2 weeks #4 no driving until off narcotics for 24 hours and able to safely react in the car #5 may climb stairs - Diet and Activity Activity: increase activity as tolerated Diet: diabetic diet, low fat, low cholesterol Hospital course: 55 year old female with past medical history of gallbladder disease and recurrent pancreatitis came to the hospital with complain of severe right lower quadrant and epigastric Abdominal CT showed a mildly dilated CBD at 10mm,mild inflammatory changes around the pancreas concerning for acute on chronic pancreatitis. It also showed an abnormal tethering of the stomach wall to the body of the pancreas that could be a fistula but showed no change from previous CT. Patient was afebrile but tachycardic with a leukocytosis and elevated CRP so there is concern for infectious process, possibly acute cholecystits. Surgery was consulted. Will start patient empirically on IV antibiotics started IV fluid. With her uncontrolled diabetes. Continue to titrate insulin. Patient had Laparoscopic cholecystectomy, attempted cholangiogram. Laparoscopic liver biopsy After surgery patient continued to have fevers severe abdominal pain. Persistent leukocytosis. We will start patient again on IV antibiotic. Marked improvement of her symptom. Today patient tolerated all her meals. Had signs of fluid overload resolved after receiving Lasix. Patient is to visit her blood sugar is poorly controlled at home. Medication adjusted. Dietary was consulted. Blood sugar under better control. With her symptom of severe COPD. Patient was given prescription for Q [place] in addition to aerosol machine. Patient to follow-up with surgery as well as pulmonary as an outpatient. May consider pancreatic enzyme replacement down the road. Need to have follow-up with pulmonary as well as pulmonary hypertension for optimizing her lung function. - Time Spent with Patient Total time spent providing and/or coordinating discharge services: Greater than 30 minutes - Constitutional Vitals: Temp Pulse Resp BP Pulse Ox 98.3 F 104 16 137/83 95 05/14/16 15:43 05/14/16 15:43 05/14/16 15:43 05/14/16 15:43 05/14/16 15:43 General appearance: Present: A&O X 3, obese, answers questions appropriately - VTE Documentation of Mechanical Device: Intermittent pneumatic compression device
[2016-05-14 18:56] VITALS: BP 123/76
[2016-05-14] MEDS ORDERED: Insulin LISPRO 300 UNITS/3 ML VIAL SQ SCH (21:00)
== END 2016-05-14 18:58 | disposition home or self-care (01) | DRG 263 ==
LOC: 3ANU 17:17 → EMEROO 17:17 → 3ANU 21:25
PROVIDERS: ADMIT Internal Medicine; ATTEND Internal Medicine

== ENCOUNTER 2017-01-31 10:23 | Observation (INO) ==
[2017-01-31] MEDS ORDERED: Naloxone 0.4 MG/ML INJ IVP PRN (14:24)
[2017-01-31] MEDS ORDERED: 0.9 % Sodium Chloride 1,000 ML IVC SCH (14:30)
[2017-01-31] MEDS ORDERED: Albuterol 2.5 MG/3 ML NEBULIZER IH PRN (14:37)
[2017-01-31] MEDS ORDERED: Dextrose Gel 15 GM PO PRN ×2 (14:38)
[2017-01-31] MEDS ORDERED: D5% in Water 1,000 ML IVC PRN (14:38)
[2017-01-31] MEDS ORDERED: *HR* Dextrose 50 % in Water (Syg) 50 ML SYRINGE IVP PRN (14:38)
[2017-01-31] MEDS: Ipratropium/Albuterol Neb 3 ML IH SCH (15:58)
[2017-01-31] MEDS: *HR* Morphine 2 MG/ML SYRINGE IVP PRN ×2 (16:24→21:12)
[2017-01-31] MEDS: Insulin LISPRO 300 UNITS/3 ML VIAL SQ SCH (16:34)
--- NOTE | 2017-01-31 16:55 | Internal Med History&Physical ---
<Yajaira Rueda - Last Filed: 01/31/17 19:10> Date of Encounter: 01/31/17 Time of Encounter: 13:00 Assessment and Plan (1) Sepsis Current visit: Yes Status: Acute Patient has been experiencing sob and diffuse abd pain . She has bandemia >10% lactate 3.7 elevated heart rate unsure of source possible abdominal or pneumonia. Obtain blood cultures We will recheck lactate and give IV fluids 2 we will initiate on Flagyl and Zosyn 3 cardiac monitoring 4 monitor intake and output 5 we will obtain ultrasound of right upper quadrant as well as CT of abdomen Qualifiers: Sepsis type: sepsis due to unspecified organism Qualified Code(s): A41.9 - Sepsis, unspecified organism (2) DM2 (diabetes mellitus, type 2) Current visit: No Status: Acute 1 Accu-Cheks every 6 hours with sliding scale insulin due to patient is presently nothing by mouth Qualifiers: Diabetes mellitus complication status: without complication Diabetes mellitus meterman insulin use: with meterman use Qualified Code(s): E11.9 - Type 2 diabetes mellitus without complications; Z79.4 - residential (current) use of insulin; Z79.4 - meterman (current) use of insulin; Z79.4 - residential ( current) use of insulin; Z79.4 - residential (current) use of insulin (3) Hyperkalemia Current visit: No Status: Acute 1 potassium presently at 5 we will give IV fluids and monitor electrolytes Cardiac monitoring (4) COPD (chronic obstructive pulmonary disease) Current visit: No Status: Chronic Patient has history of COPD we will continue with oxygen titrating to maintain SPO2 greater than 92% as well as bronchodilators Qualifiers: COPD type: unspecified COPD Qualified Code(s): J44.9 - Chronic obstructive pulmonary disease, unspecified Internal Medicine - H&P: HPI Chief complaint: Nausea/vomiting Admitted From: Emergency Dept Plans for Post Hospital Care: Home History of present illness: Ms. Archer is a 56 year old female past medical history of diabetes, hyperlipidemia hypertension and pancreatitis. Patient has been experiencing subjective fevers and chills as well as nausea and vomiting of phlegm several times since yesterday. She has had some diffuse abdominal pain no aggravating or relieving factors. She did have 3 episodes of diarrhea this morning however she is advised on usual she denies any urinary symptoms of dysuria frequency or urgency. She does have a mild cough which is increased from her baseline and has been producing small amount of white sputum. She has been experiencing increasing shortness of breath she has history of COPD however she is not oxygen dependent. She did present to the [facility] emergency department with the above complaints. According to records lab work did reveal elevated lactate, hyperkalemia and some bandemia. Chest x-ray did show bandlike density in the left base suggestive of atelectasis or developing pneumonia she was transferred to [facility] for further workup and evaluation.Presently she is hemodynamically stable. I reviewed this case with Dr Hanson who agrees with plan Past Med Surg Social Fam HX - Past Medical History Medical history: diabetes, GERD, hyperlipidemia, hypertension, other Psychiatric history: depression - Past Surgical History Surgical History: cholecystectomy, hysterectomy, orthopedic, other, other - Social History Smoking Status: Former smoker Smokeless Tobacco Status: No Alcohol use: none Drug use: none - Family History Brother Hx Family Neuromuscular Disorders: Yes Hx Family Neurologic Disorders: Yes ([place]) Father Living Status: Hx Family Cancer: Yes (colon cancer, black lung) Mother Family Member Ethnicity: Non- Living Status: Still Living Hx Family Cardiac Disorders: Yes (heart disease) Hx Family Endocrine Disorder: Yes (diabetes) Internal Medicine - H&P: Meds Albuterol Sulfate [Proair Hfa] 2 puff IH Q4H PRN 05/10/16 [History] Aspirin [Lo-Dose Aspirin EC] 81 mg PO DAILY 05/10/16 [History] Carvedilol [Coreg] 12.5 mg PO BID 05/10/16 [History] Ferrous Sulfate [Iron] 325 mg PO DAILY 05/10/16 [History] Furosemide [Lasix] 20 mg PO DAILY 05/10/16 [History] Loratadine [Allergy Relief] 10 mg PO DAILY 05/10/16 [History] Omeprazole 20 mg PO DAILY 05/10/16 [History] Paroxetine HCl [Paxil] 20 mg PO DAILY 05/10/16 [History] Pravastatin Sodium [Pravachol] 20 mg PO DAILY 05/10/16 [History] Docusate Sodium [Colace] 100 mg PO DAILY #30 capsule 05/13/16 [Rx] Acetaminophen [Tylenol] 650 mg PO Q6HR PRN #60 tablet 05/14/16 [Rx] Insulin LISPRO [HumaLOG] 2 - 10 units SQ TIDAC MDD PER SLIDING SCALE 07/08/16 [ History] Ipratropium/Albuterol Neb [Duoneb] 3 ml IH Q6HR PRN 07/08/16 [History] Budesonide/Formoterol 160/4.5 [Symbicort 160/4.5] 2 puff IH BIDR 01/31/17 [ History] Insulin Glargine,Hum.rec.anlog [Basaglar Kwikpen U-100] 35 unit SQ BID 01/31/17 [History] 3 Allergy/AdvReac Type Severity Reaction Status Date / Time naproxen [From Naprosyn] Allergy Itching Verified 01/31/17 07:21 tramadol Allergy Itching Verified 01/31/17 07:21 All Systems PM: A 10-system review of systems was performed and is negative for pertinent findings except as documented above in the HPI. - Constitutional Constitutional: no chills, no fever(s), no night sweats - EENT Eyes: no change in vision, no discharge, no pain, no photophobia Nose, mouth and throat: no dysphagia, no nasal discharge, no neck pain, no sore throat - Cardiovascular Cardiovascular ROS IM: dyspnea on exertion, no chest pain, no diaphoresis, no dyspnea, no lightheadedness, no palpitations, no syncope - Respiratory Respiratory: cough, excessive phlegm production - Gastrointestinal Gastrointestinal: abdominal pain, diarrhea, no hematemesis, no hematochezia, no melena, no nausea, no vomiting - Genitourinary Genitourinary: no change in urinary stream, no dysuria, no flank pain, no hematuria - Musculoskeletal Musculoskeletal ROS IM: no numbness, no tingling - Integumentary Integumentary IM: no rash, no unusual bruising - Neurological Neurological ROS: no confusion, no convulsions, no focal weakness, no numbness, no tingling, no tremor(s) - Hematologic/Lymphatic Hematologic/Lymphatic: no easy bruising - Constitutional Vitals: Temp Pulse Resp BP Pulse Ox 98 F 94 18 142/82 94 01/31/17 16:41 01/31/17 16:41 01/31/17 16:41 01/31/17 16:41 01/31/17 16:41 General appearance: Present: A&O X 3, answers questions appropriately - Head Head exam: Present: atraumatic, normocephalic - Eye Eye exam: Present: PERRL, conjuntiva pink, sclera anicteric Pupils: Present: PERRL - Neck Neck exam general surgery: Present: supple, trachea midline. Absent: lymphadenopathy - Respiratory Respiratory exam: Present: CTAB. Absent: accessory muscle use, rales, rhonchi, wheezes - Cardiovascular Cardiovascular exam: Present: RRR, +S1, +S2. Absent: diastolic murmur, gallop, rubs, systolic murmur - GI/Abdominal GI/Abdominal exam: Present: normal bowel sounds, soft, no peritoneal signs. Absent: distended, tenderness - Extremities Exam Extremities exam: Present: warm, radial pulses palpable and symmetrical. Absent : calf tenderness, cyanotic, pedal edema - Neurological Exam Neurological exam: Present: CN II-XII intact, oriented X3, no focal deficits. Absent: pronater drift, facial droop, speech deficit - Skin Skin exam: Present: dry, intact Internal Med - H&P Results - Labs Labs: Lab work drawn today CBC with WBC 5.16 1214.2 hematocrit 44.2 platelets 265. Lactate 3.1 troponin was 0 BUN 3.3, globulin 3.6 lipase less than 1 total bili 1 AST 55 AST 32 a LK 218 Chemistries sodium 139 potassium 5 chloride 99 bicarbonate 28 BUN 11 creatinine 0.79 glucose 184 <Margie,Dion P - Last Filed: 02/01/17 13:33> Date of Encounter: 02/01/17 Internal Medicine - H&P: HPI History of present illness: Ms. Archer is a 56 year old female All Systems PM: A 10-system review of systems was performed and is negative for pertinent findings except as documented above in the HPI. - Constitutional Vitals: Temp Pulse Resp BP Pulse Ox 98.2 F 99 16 129/76 95 02/01/17 12:14 02/01/17 12:14 02/01/17 12:14 02/01/17 12:14 02/01/17 12:14 Internal Med - H&P Results - Labs CBC & Chem 7: 02/01/17 04:35 02/01/17 04:35 Labs: Short CBC 02/01/17 Range/Units 04:35 WBC 12.5 H D (4.3-11.1) K/mcL Hgb 11.7 D (11.5-15.4) g/dL Hct 36.4 (35.3-44.9) % Plt Count 149 (140-400) K/mcL Neutrophils # 11.3 H (1.6-8.9) K/mcL BMP 02/01/17 04:35 Sodium 138 Potassium 4.3 Chloride 102 Carbon Dioxide 25 BUN 10 Creatinine 0.71 Glucose 186 H Calcium 8.0 L - Impressions ITS Impressions Abdomen/Pelvis CT 01/31/17 17:47 IMPRESSION: Pancreatic pseudocyst. No gross change compared to previous MRI abdomen. D/ / Jaden Mendiola MD / Jaden Mendiola MD Interpreting Provider: Jaden Mendiola MD - Attending Attestation I examined this patient and my medical decision-making was reviewed with the Resident Physician/VITICULTURE TEACHER. I agree with the documented findings, disposition and treatment plan as described except to the extent set forth below.
[2017-01-31] MEDS ORDERED: Ipratropium/Albuterol Neb 3 ML IH PRN (18:37)
[2017-01-31] MEDS: Ondansetron 4 MG/2 ML VIAL IVP PRN (21:12)
[2017-02-01] MEDS ORDERED: MetroNIDAZOLE 500 MG/100 ML 500 MG/100 ML BAG IVPB SCH
[2017-02-01] MEDS ORDERED: Piperacillin/Tazobactam 3.375 GM in D5% in Water 50 ML IVPB SCH
[2017-02-01] MEDS: Budesonide/Formoterol 160/4.5 MDI IH SCH ×3 (00:14→23:41)
[2017-02-01] MEDS: Ipratropium/Albuterol Neb 3 ML IH SCH ×5 (00:14→23:41)
[2017-02-01] MEDS: Insulin LISPRO 300 UNITS/3 ML VIAL SQ SCH ×4 (01:18→19:04)
[2017-02-01] MEDS: *HR* Morphine 2 MG/ML SYRINGE IVP PRN ×2 (01:20→05:57)
[2017-02-01 04:53] LABS: Basophils % 0.2 %; Hematocrit 36.4 % (35.3-44.9); Hemoglobin 11.7 g/dL (11.5-15.4); Immature Granulocytes % 0.2 % (0-4); Lymphocytes # 0.7 K/mcL (0.6-4.6); Lymphocytes % 5.4 %; Mean Corpuscular HGB Conc 32.1 g/dL (31.6-35.5); Mean Corpuscular Hemoglobin 26.8 pg (28.0-33.3); Mean Corpuscular Volume 83.5 fL (83.0-100.0); Mean Platelet Volume 10.8 fL (9.4-12.4); Monocytes # 0.5 K/mcL (0.0-1.3); Monocytes % 3.7 %; Neutrophils # 11.3 K/mcL (1.6-8.9); Platelet Count 149 K/mcL (140-400); Red Blood Count 4.36 M/mcL (3.82-4.97); Red Cell Distribution Width 14.1 % (11.5-14.5); Segmented Neutrophils % 90.5 %
[2017-02-01 05:35] LABS: BUN/Creatinine Ratio 14 (6-26); Blood Urea Nitrogen 10 mg/dL (7-20); Carbon Dioxide 25 mEq/L (19-29); Chloride 102 mEq/L (98-109); Glucose 186 mg/dL (70-99); Magnesium 1.4 mg/dL (1.6-2.6); Osmolality,Calculated 290 (280-300); Potassium 4.3 mEq/L (3.5-4.5); Sodium 138 mEq/L (136-145); eGFR For African Americans > 60 (> 60); eGFR For Non-African Americans > 60 (> 60)
[2017-02-01] MEDS: *HR* Enoxaparin 40 MG/0.4 ML SYRINGE SQ SCH (05:49)
[2017-02-01] MEDS: 0.9 % Sodium Chloride 1,000 ML IVC SCH ×2 (07:35→19:04)
--- NOTE | 2017-02-01 08:06 | Internal Med Progress Note ---
Date of Encounter: 02/01/17 Time of Encounter: 08:02 - Assessment and plan (1) Sepsis Current Visit: Yes Status: Acute Assessment and plan: Likely pneumonia versus intra-abdominal process. X-ray with possible pneumonia. He does complain of abdominal pain and diarrhea. abdomen showed pancreatic pseudocyst and hepatic steatosis. He has had diarrhea for several weeks, has not had any bowel movements for the past 2 days because she has been nothing by mouth. She states she has had a history of C. difficile in the past. She denies any recent hospitalizations. Last time hospitalized was seen 04/2016, which she had a laparoscopic cholecystectomy and liver biopsy. It was noted at that time she came in for abdominal pain with fevers as well. -Continue Zosyn and Flagyl. -Broaden coverage with IV Vancomycin as patient still ill appearing with suspicion for pneumonia. -Regards to potential C. difficile, she is on Flagyl right now and lab C. difficile is pending. Begin contact precautions until results return. -Blood cx/Sputum cx/Stool panel/Respiratory panels follow-up -Procalcitonin now and every 48 hours to assess sepsis severity. -Upper quadrant ultrasound results pending. Qualifiers: Sepsis type: sepsis due to unspecified organism Qualified Code(s): A41.9 - Sepsis, unspecified organism (2) Dyspnea Current Visit: Yes Status: Acute Assessment and plan: Suspect pneumonia, possibly fluid overload. Patient currently hypotensive and so we will not diurese her at this moment. Qualifiers: Dyspnea type: shortness of breath Qualified Code(s): R06.02 - Shortness of breath; R06.00 - Dyspnea, unspecified; R06.01 - Orthopnea (3) Abdominal pain Current Visit: No Status: Acute Assessment and plan: History of C diff with several weeks of diarrhea. Possibly hepatobiliary process, LFTs borderline elevated. Lipase wnl. Will evaluate for choledulcolithiasis and liver dz. Follow-up RUQ ultrasound, evaluate for choledulcolithiasis s/p lap cholecystectomy 04/2016. Continue Zosyn/FLagyl Qualifiers: Abdominal location: generalized Qualified Code(s): R10.84 - Generalized abdominal pain (4) Diarrhea Current Visit: Yes Status: Acute Assessment and plan: Plan as above Qualifiers: Diarrhea type: presumed infectious Qualified Code(s): A09 - Infectious gastroenteritis and colitis, unspecified (5) Hyperkalemia Current Visit: No Status: Acute (6) DM2 (diabetes mellitus, type 2) Current Visit: No Status: Acute Qualifiers: Diabetes mellitus complication status: without complication Diabetes mellitus terminal operator insulin use: with longterm use Qualified Code(s): E11.9 - Type 2 diabetes mellitus without complications; Z79.4 - assisted (current) use of insulin; Z79.4 - terminologist (current) use of insulin; Z79.4 - terminologist ( current) use of insulin; Z79.4 - assisted (current) use of insulin (7) HLD (hyperlipidemia) Current Visit: No Status: Chronic Qualifiers: Hyperlipidemia type: unspecified Qualified Code(s): E78.5 - Hyperlipidemia , unspecified (8) GERD (gastroesophageal reflux disease) Current Visit: No Status: Chronic Qualifiers: Esophagitis presence: esophagitis presence not specified Qualified Code(s) : K21.9 - Gastro-esophageal reflux disease without esophagitis (9) COPD (chronic obstructive pulmonary disease) Current Visit: No Status: Chronic Qualifiers: COPD type: unspecified COPD Qualified Code(s): J44.9 - Chronic obstructive pulmonary disease, unspecified (10) Fatty liver Current Visit: No Status: Acute Assessment and plan: As seen on CT and other previous imaging. (11) Essential hypertension Current Visit: No Status: Chronic - Subjective Interval history: Patient states she feels only slightly better than yesterday. She still feels fevers/chills. Appetite is good, requests food. Has upcoming ultrasound. She does note that for past few weeks she has been having loose stools. Green in consistency shortly after meals. BP at home usually hypertensive, currently BP ranging 102-113/64-68, on Coreg and HR ranges 91-97. - Constitutional Vitals: Temp Pulse Resp BP Pulse Ox 98.5 F 97 16 102/64 93 02/01/17 05:42 02/01/17 05:42 02/01/17 05:42 02/01/17 05:42 02/01/17 05:42 General appearance: Present: A&O X 3, obese, answers questions appropriately Exam: Gen: NAD, on O2 CVS: tachycardic, no mrg Lungs: Fine rales at both lung bases. No wheezing, no rhonchi. Abd; soft, NT/ND, normoactive bowel sounds Ext: 1+ bipedal pitting edema Internal Medicine: Result - Labs CBC & Chem 7: 02/01/17 04:35 02/01/17 04:35 Labs: Short CBC 02/01/17 Range/Units 04:35 WBC 12.5 H D (4.3-11.1) K/mcL Hgb 11.7 D (11.5-15.4) g/dL Hct 36.4 (35.3-44.9) % Plt Count 149 (140-400) K/mcL Neutrophils # 11.3 H (1.6-8.9) K/mcL BMP 02/01/17 04:35 Sodium 138 Potassium 4.3 Chloride 102 Carbon Dioxide 25 BUN 10 Creatinine 0.71 Glucose 186 H Calcium 8.0 L - Impressions Impressions Abdomen/Pelvis CT 01/31/17 17:47 IMPRESSION: Pancreatic pseudocyst. No gross change compared to previous MRI abdomen. D/ / Jaden Mendiola MD / Jaden Mendiola MD Interpreting Provider: Jaden Mendiola MD Consult Discharge Plan - Plan Referrals: Stephanie Bobo, PEST CONTROL TECHNICIAN [Primary Care Provider] -
[2017-02-01] MEDS ORDERED: Levofloxacin 750 MG/150 ML 750 MG/150 ML BAG IVPB SCH (09:00)
[2017-02-01] MEDS: Ondansetron 4 MG/2 ML VIAL IVP PRN (09:07)
[2017-02-01] MEDS ORDERED: Vancomycin 1,500 MG in D5% in Water 250 ML IVPB SCH (10:00)
[2017-02-01] MEDS: Aspirin Enteric Coated 81 MG Tablet PO SCH (11:13)
[2017-02-01] MEDS: Vancomycin 1,250 MG in D5% in Water 250 ML IVPB SCH ×2 (11:14→22:31)
[2017-02-01] MEDS: Piperacillin/Tazobactam 3.375 GM in D5% in Water 50 ML IVPB SCH ×2 (11:18→20:34)
[2017-02-01] MEDS ORDERED: Ibuprofen 600 MG TABLET PO ONE (11:30)
[2017-02-01] MEDS: MetroNIDAZOLE 500 MG/100 ML 500 MG/100 ML BAG IVPB SCH ×2 (13:19→20:35)
[2017-02-01] MEDS: Ibuprofen 600 MG TABLET PO PRN (20:35)
[2017-02-02] MEDS: Insulin LISPRO 300 UNITS/3 ML VIAL SQ SCH ×3 (00:07→13:24)
[2017-02-02] MEDS: 0.9 % Sodium Chloride 1,000 ML IVC SCH ×2 (02:02→04:09)
[2017-02-02] MEDS: Piperacillin/Tazobactam 3.375 GM in D5% in Water 50 ML IVPB SCH ×4 (04:09→21:54)
[2017-02-02] MEDS: MetroNIDAZOLE 500 MG/100 ML 500 MG/100 ML BAG IVPB SCH ×3 (04:10→20:50)
[2017-02-02] MEDS: Ipratropium/Albuterol Neb 3 ML IH SCH ×4 (04:26→22:20)
[2017-02-02] MEDS: *HR* Enoxaparin 40 MG/0.4 ML SYRINGE SQ SCH (05:36)
[2017-02-02] MEDS: Ibuprofen 600 MG TABLET PO PRN (05:36)
[2017-02-02 07:33] LABS: Eosinophils # 0.1 K/mcL (0.0-0.6); Eosinophils % 0.9 %; Hematocrit 36.8 % (35.3-44.9); Hemoglobin 11.6 g/dL (11.5-15.4); Immature Granulocytes % 0.4 % (0-4); Lymphocytes # 0.7 K/mcL (0.6-4.6); Lymphocytes % 8.5 %; Mean Corpuscular HGB Conc 31.5 g/dL (31.6-35.5); Mean Corpuscular Hemoglobin 26.4 pg (28.0-33.3); Mean Corpuscular Volume 83.6 fL (83.0-100.0); Mean Platelet Volume 11.4 fL (9.4-12.4); Monocytes # 0.5 K/mcL (0.0-1.3); Monocytes % 6.6 %; Neutrophils # 6.5 K/mcL (1.6-8.9); Platelet Count 163 K/mcL (140-400); Red Cell Distribution Width 14.1 % (11.5-14.5); Segmented Neutrophils % 83.6 %
[2017-02-02 07:40] LABS: BUN/Creatinine Ratio 12 (6-26); Blood Urea Nitrogen 8 mg/dL (7-20); Calcium 7.4 mg/dL (8.6-10.8); Carbon Dioxide 26 mEq/L (19-29); Chloride 106 mEq/L (98-109); Glucose 212 mg/dL (70-99); Magnesium 2.1 mg/dL (1.6-2.6); Osmolality,Calculated 291 (280-300); Potassium 3.9 mEq/L (3.5-4.5); Sodium 138 mEq/L (136-145); eGFR For African Americans > 60 (> 60); eGFR For Non-African Americans > 60 (> 60)
[2017-02-02] MEDS: Aspirin Enteric Coated 81 MG Tablet PO SCH (09:06)
[2017-02-02] MEDS: Budesonide/Formoterol 160/4.5 MDI IH SCH ×2 (10:18→22:20)
[2017-02-02] MEDS: Vancomycin 1,250 MG in D5% in Water 250 ML IVPB SCH (10:59)
[2017-02-02 12:41] LABS: Procalcitonin 43.7 ng/mL (<=0.10)
--- NOTE | 2017-02-02 16:34 | Internal Med Progress Note ---
Date of Encounter: 02/02/17 Time of Encounter: 10:50 - Assessment and plan (1) Sepsis Current Visit: Yes Status: Suspected Assessment and plan: Blood cultures positive for gram-positive cocci. Most likely streptococci. Repeat cultures have been negative. Continue current antibiotics while we await final culture results. We will also check for vegetations with 2-D echocardiogram. Qualifiers: Sepsis type: Streptococcus, other Qualified Code(s): A40.8 - Other streptococcal sepsis (2) Pneumonia Current Visit: Yes Status: Suspected Assessment and plan: Chest x-ray done at admission showed left basal opacity concerning for atelectasis or pneumonia. Pro-calcitonin levels from admission are elevated. Continue current IV antibiotics. We will await final culture results. High risk for complications due to gram-positive sepsis. Qualifiers: Pneumonia type: due to unspecified organism Laterality: left Lung location: lower lobe of lung Qualified Code(s): J18.1 - Lobar pneumonia, unspecified organism (3) Abdominal pain Current Visit: Yes Status: Acute Assessment and plan: Likely due to chronic pancreatitis/pancreatic pseudocyst. No acute pancreatitis. Lipase normal. Pain is improving. Patient wants to try regular diet. We will advance her diet. Qualifiers: Abdominal location: epigastric Qualified Code(s): R10.13 - Epigastric pain (4) COPD (chronic obstructive pulmonary disease) Current Visit: Yes Status: Chronic Assessment and plan: continue Symbicort and DuoNebs. Qualifiers: COPD type: unspecified COPD Qualified Code(s): J44.9 - Chronic obstructive pulmonary disease, unspecified (5) Diarrhea Current Visit: Yes Status: Resolved Assessment and plan: This seems to have resolved now. Qualifiers: Diarrhea type: presumed infectious Qualified Code(s): A09 - Infectious gastroenteritis and colitis, unspecified (6) DM2 (diabetes mellitus, type 2) Current Visit: Yes Status: Chronic Assessment and plan: Uncontrolled blood sugars. We will add long-acting insulin coverage. 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 Qualifiers: Dyspnea type: shortness of breath Qualified Code(s): R06.02 - Shortness of breath; R06.00 - Dyspnea, unspecified; R06.01 - Orthopnea (8) Essential hypertension Current Visit: Yes Status: Chronic Assessment and plan: Well-controlled. Continue carvedilol (9) GERD (gastroesophageal reflux disease) Current Visit: Yes Status: Chronic Assessment and plan: Continue omeprazole Qualifiers: Esophagitis presence: esophagitis presence not specified Qualified Code(s) : K21.9 - Gastro-esophageal reflux disease without esophagitis - Subjective Interval history: Patient is awake and alert. Denies any new complaints at this time. Tolerating oral diet well. He is much better today. Abdominal pain and shortness of breath are improving. - Constitutional Vitals: Temp Pulse Resp BP Pulse Ox 98.4 F 81 16 126/67 95 02/02/17 16:00 02/02/17 16:00 02/02/17 16:00 02/02/17 16:00 02/02/17 16:00 General appearance: Present: A&O X 3, obese, answers questions appropriately - Neck Neck exam general surgery: Present: supple, trachea midline. Absent: lymphadenopathy - Respiratory Respiratory exam: Present: CTAB. Absent: accessory muscle use, rales, rhonchi, wheezes - Cardiovascular Cardiovascular exam: Present: RRR, +S1, +S2. Absent: diastolic murmur, gallop, rubs, systolic murmur - GI/Abdominal GI/Abdominal exam: Present: normal bowel sounds, soft, tenderness (Epigastric), no peritoneal signs. Absent: distended - Extremities Exam Extremities exam: Present: warm, radial pulses palpable and symmetrical. Absent : calf tenderness, cyanotic, pedal edema - Neurological Exam Neurological exam: Present: alert, CN II-XII intact, oriented X3, no focal deficits. Absent: facial droop, speech deficit Internal Medicine: Result - Labs CBC & Chem 7: 02/02/17 06:55 02/02/17 06:55 Labs: Short CBC 02/02/17 Range/Units 06:55 WBC 7.8 (4.3-11.1) K/mcL Hgb 11.6 (11.5-15.4) g/dL Hct 36.8 (35.3-44.9) % Plt Count 163 (140-400) K/mcL Neutrophils # 6.5 (1.6-8.9) K/mcL [facility] 02/02/17 06:55 Sodium 138 Potassium 3.9 Chloride 106 Carbon Dioxide 26 BUN 8 Creatinine 0.67 Glucose 212 H Calcium 7.4 L Consult Discharge Plan - Plan Referrals: Stephanie Bobo, [employer] [Primary Care Provider] -
[2017-02-02] MEDS ORDERED: Insulin LISPRO 300 UNITS/3 ML VIAL SQ SCH (21:00)
[2017-02-02] MEDS: Insulin DETEMIR 100 UNIT/ML X5UNITS SQ SCH (21:55)
[2017-02-02] MEDS: *HR* Morphine 2 MG/ML SYRINGE IVP PRN (22:43)
[2017-02-02] MEDS ORDERED: Vancomycin 1,500 MG in D5% in Water 250 ML IVPB SCH (23:59)
[2017-02-03] MEDS: MetroNIDAZOLE 500 MG/100 ML 500 MG/100 ML BAG IVPB SCH (04:23)
[2017-02-03] MEDS: Piperacillin/Tazobactam 3.375 GM in D5% in Water 50 ML IVPB SCH (04:24)
[2017-02-03] MEDS: Ipratropium/Albuterol Neb 3 ML IH SCH ×3 (04:49→16:24)
[2017-02-03 06:41] LABS: Basophils % 0.1 %; Eosinophils # 0.1 K/mcL (0.0-0.6); Eosinophils % 1.4 %; Hematocrit 36.2 % (35.3-44.9); Hemoglobin 11.3 g/dL (11.5-15.4); Immature Granulocytes % 0.8 % (0-4); Immature Platelets 7.2 % (1.1-6.1); Lymphocytes % 13.8 %; Mean Corpuscular HGB Conc 31.2 g/dL (31.6-35.5); Mean Corpuscular Volume 83.4 fL (83.0-100.0); Mean Platelet Volume 11.4 fL (9.4-12.4); Monocytes # 0.7 K/mcL (0.0-1.3); Monocytes % 9.1 %; Neutrophils # 5.5 K/mcL (1.6-8.9); Platelet Count 174 K/mcL (140-400); Red Blood Count 4.34 M/mcL (3.82-4.97); Segmented Neutrophils % 74.8 %
[2017-02-03 06:52] LABS: BUN/Creatinine Ratio 11 (6-26); Blood Urea Nitrogen 8 mg/dL (7-20); Calcium 8.3 mg/dL (8.6-10.8); Carbon Dioxide 26 mEq/L (19-29); Chloride 109 mEq/L (98-109); Glucose 185 mg/dL (70-99); Magnesium 1.8 mg/dL (1.6-2.6); Osmolality,Calculated 295 (280-300); Sodium 141 mEq/L (136-145); eGFR For African Americans > 60 (> 60); eGFR For Non-African Americans > 60 (> 60)
[2017-02-03] MEDS: *HR* Enoxaparin 40 MG/0.4 ML SYRINGE SQ SCH (06:56)
[2017-02-03] MEDS: Aspirin Enteric Coated 81 MG Tablet PO SCH (08:44)
[2017-02-03] MEDS: Insulin DETEMIR 100 UNIT/ML X5UNITS SQ SCH (08:49)
[2017-02-03] MEDS: Insulin LISPRO 300 UNITS/3 ML VIAL SQ SCH ×2 (08:50→12:22)
[2017-02-03] MEDS ORDERED: Lidocaine -MPF 1% 5 ML AMPUL INFILT ONE (10:29)
[2017-02-03 10:56] VITALS: BP 121/70
[2017-02-03] MEDS ORDERED: cefTRIAXone 2,000 MG in Water for inj. (sterile) 20 ML IVP SCH (11:00)
[2017-02-03] MEDS: Budesonide/Formoterol 160/4.5 MDI IH SCH (11:16)
--- NOTE | 2017-02-03 11:21 | Discharge Summary ---
Date of Encounter: 02/03/17 Time of Encounter: 11:19 - Discharge Diagnosis (1) Sepsis Priority: Primary Status: Suspected Qualifiers: Sepsis type: Streptococcus, other Qualified Code(s): A40.8 - Other streptococcal sepsis (2) Pneumonia Priority: Secondary Status: Acute Comments: Based on her initial chest x-ray findings. Patient also had elevated pro calcitonin and bacteremia with Streptococcus anginosus Qualifiers: Pneumonia type: due to unspecified organism Laterality: left Lung location: lower lobe of lung Qualified Code(s): J18.1 - Lobar pneumonia, unspecified organism (3) Abdominal pain Priority: Secondary Status: Acute Qualifiers: Abdominal location: epigastric Qualified Code(s): R10.13 - Epigastric pain (4) COPD (chronic obstructive pulmonary disease) Priority: Secondary Status: Chronic Qualifiers: COPD type: unspecified COPD Qualified Code(s): J44.9 - Chronic obstructive pulmonary disease, unspecified (5) Diarrhea Priority: Secondary Status: Resolved Qualifiers: Diarrhea type: presumed infectious Qualified Code(s): A09 - Infectious gastroenteritis and colitis, unspecified (6) DM2 (diabetes mellitus, type 2) Priority: Secondary Status: Chronic Qualifiers: Diabetes mellitus complication status: with hyperglycemia Diabetes mellitus 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-way 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 Qualified Code(s): E11.65 - Type 2 diabetes mellitus with hyperglycemia; Z79.4 - director investment banking (current) use of insulin; Z79.4 - jail (current) use of insulin; Z79.4 - jail ( current) use of insulin; Z79.4 - jail (current) use of insulin (7) Dyspnea Priority: Secondary Status: Resolved Qualifiers: Dyspnea type: shortness of breath Qualified Code(s): R06.02 - Shortness of breath; R06.00 - Dyspnea, unspecified; R06.01 - Orthopnea (8) Essential hypertension Priority: Secondary Status: Chronic (9) GERD (gastroesophageal reflux disease) Priority: Secondary Status: Chronic Qualifiers: Esophagitis presence: esophagitis presence not specified Qualified Code(s) : K21.9 - Gastro-esophageal reflux disease without esophagitis - Discharge Medications Prescriptions: cefTRIAXone [Rocephin] 2,000 mg IVPB DAILY #13 vial Home Medications: Albuterol Sulfate [Proair Hfa] 2 puff IH Q4H PRN 05/10/16 [History] Aspirin [Lo-Dose Aspirin EC] 81 mg PO DAILY 05/10/16 [History] Carvedilol [Coreg] 12.5 mg PO BID 05/10/16 [History] Ferrous Sulfate [Iron] 325 mg PO DAILY 05/10/16 [History] Furosemide [Lasix] 20 mg PO DAILY 05/10/16 [History] Loratadine [Allergy Relief] 10 mg PO DAILY 05/10/16 [History] Omeprazole 20 mg PO DAILY 05/10/16 [History] Paroxetine HCl [Paxil] 20 mg PO DAILY 05/10/16 [History] Pravastatin Sodium [Pravachol] 20 mg PO DAILY 05/10/16 [History] Docusate Sodium [Colace] 100 mg PO DAILY #30 capsule 05/13/16 [Rx] Acetaminophen [Tylenol] 650 mg PO Q6HR PRN #60 tablet 05/14/16 [Rx] Insulin LISPRO [HumaLOG] 2 - 10 units SQ TIDAC MDD PER SLIDING SCALE 07/08/16 [ History] Ipratropium/Albuterol Neb [Duoneb] 3 ml IH Q6HR PRN 07/08/16 [History] Budesonide/Formoterol 160/4.5 [Symbicort 160/4.5] 2 puff IH BIDR 01/31/17 [ History] Insulin Glargine,Hum.rec.anlog [Basaglar Kwikpen U-100] 35 unit SQ BID 01/31/17 [History] cefTRIAXone [Rocephin] 2,000 mg IVPB DAILY #13 vial 02/03/17 [Rx] Allergies/Adverse Reactions: 3 Allergy/AdvReac Type Severity Reaction Status Date / Time naproxen [From Naprosyn] Allergy Itching Verified 01/31/17 07:21 tramadol Allergy Itching Verified 01/31/17 07:21 Procedures/tests Complete & Pending: Procedures Performed prior 72 hours Category Date Time Status CT abd pelvis w iv no oral [CT] Stat Cat Scan 01/31/17 17:47 Completed abdominal ultrasound - limited [US abdomen limited] [US Exams 02/01/17 09:30 Taken ] Routine EV echocardiogram Routine Y 02/02/17 08:52 Completed Date of admission: 01/31/17 12:08 Primary care physician: Stephanie Bobo CNP Consults: 02/03/17 10:29 Consult to Invasive Line Access Team [CONS] Routine Reason for Consult: Picc Line Insertion Line Type: EPIV PICC line indications: director investment banking Med/Antibiotic Consult to Cardiac Catheterization Technician [CONS] Routine Reason for SW Consult: OP IV antibiotics Discharging clinician: Harmeet Johnson Anticipated date of discharge: 02/03/17 - Patient Status Disposition: Home Health Service Condition: Good Functional capacity at discharge: independent ambulation Overall status at discharge: patient is progressing back to baseline - Discharge Instructions Instructions: Pneumonia (DC) Follow Up With: Stephanie Bobo CNP [Primary Care Provider] - 02/09/17 9:00 am (in 1-2 weeks) - Diet and Activity Activity: increase activity as tolerated Diet: diabetic diet, low fat, low cholesterol, low salt diet Hospital course: Ms. Archer is a 56 year old female patient who was admitted here with sepsis after presenting to the ER with shortness of breath and abdominal pain. She was diagnosed with also had CT scan of the abdomen which showed the presence of a pancreatic pseudocyst. Her lipase levels were normal. She had diarrhea initially but this resolved soon after. She has improved clinically with IV antibiotic therapy and is now doing much better. Her blood cultures were positive for Streptococcus anginosus. Repeat blood cultures have since been negative. I discussed her case with infectious disease) recommend placing the patient on intravenous Rocephin for 2 weeks to complete antibiotic therapy. Echocardiogram done here did not show any vegetations. At this time, patient is stable for discharge home. She will be discharged once he has outpatient intravenous antibiotics set up. - Time Spent with Patient Total time spent providing and/or coordinating discharge services: Greater than 30 minutes (40 min) - Constitutional Vitals: Temp Pulse Resp BP Pulse Ox 97.3 F L 75 16 121/70 99 02/03/17 10:52 02/03/17 10:52 02/03/17 11:17 02/03/17 10:52 02/03/17 11:17 General appearance: Present: A&O X 3, obese, answers questions appropriately - Neck Neck exam general surgery: Present: supple, trachea midline. Absent: lymphadenopathy - Respiratory Respiratory exam: Present: CTAB. Absent: accessory muscle use, rales, rhonchi, wheezes - Cardiovascular Cardiovascular exam: Present: RRR, +S1, +S2. Absent: diastolic murmur, gallop, rubs, systolic murmur - GI/Abdominal GI/Abdominal exam: Present: normal bowel sounds, soft, no peritoneal signs. Absent: distended, tenderness - Extremities Exam Extremities exam: Present: warm, radial pulses palpable and symmetrical. Absent : calf tenderness, cyanotic, pedal edema - VTE Documentation of Mechanical Device: Intermittent pneumatic compression device
--- NOTE | 2017-02-03 11:31 | Physician Discharge Referral ---
Home Health/Hosp Referral Info Transfer to: Home Health Provider in Charge Post Discharge: PCP - Diagnosis (1) Sepsis Priority: Primary Status: Suspected (2) Pneumonia Priority: Secondary Status: Acute (3) Abdominal pain Priority: Secondary Status: Acute (4) COPD (chronic obstructive pulmonary disease) Priority: Secondary Status: Chronic (5) Diarrhea Priority: Secondary Status: Resolved (6) DM2 (diabetes mellitus, type 2) Priority: Secondary Status: Chronic (7) Dyspnea Priority: Secondary Status: Resolved (8) Essential hypertension Priority: Secondary Status: Chronic (9) GERD (gastroesophageal reflux disease) Priority: Secondary Status: Chronic - Respiratory Orders Smoking Cessation: Smoking cessation has been advised. For more information, call the [employer] Quit Line at [phone]. - Diet/Nutrition Diet/Nutrition Orders: Cardiac, No Concentrated Sweets (diabetic) - Activity Activity Orders: Up ad rickey - Services Needed Following services are medically necessary services: Nursing, Home Infusion Home Care Orders: Please get CBC, Basic Panel every Wednesday while patient is receiving IV antibiotics. Also get 2 sets of blood cultures after completing antibiotic therapy in 2 weeks - Transfer Medications Prescriptions: cefTRIAXone [Rocephin] 2,000 mg IVPB DAILY #13 vial Home Medications: Albuterol Sulfate [Proair Hfa] 2 puff IH Q4H PRN 05/10/16 [History] Aspirin [Lo-Dose Aspirin EC] 81 mg PO DAILY 05/10/16 [History] Carvedilol [Coreg] 12.5 mg PO BID 05/10/16 [History] Ferrous Sulfate [Iron] 325 mg PO DAILY 05/10/16 [History] Furosemide [Lasix] 20 mg PO DAILY 05/10/16 [History] Loratadine [Allergy Relief] 10 mg PO DAILY 05/10/16 [History] Omeprazole 20 mg PO DAILY 05/10/16 [History] Paroxetine HCl [Paxil] 20 mg PO DAILY 05/10/16 [History] Pravastatin Sodium [Pravachol] 20 mg PO DAILY 05/10/16 [History] Docusate Sodium [Colace] 100 mg PO DAILY #30 capsule 05/13/16 [Rx] Acetaminophen [Tylenol] 650 mg PO Q6HR PRN #60 tablet 05/14/16 [Rx] Insulin LISPRO [HumaLOG] 2 - 10 units SQ TIDAC MDD PER SLIDING SCALE 07/08/16 [ History] Ipratropium/Albuterol Neb [Duoneb] 3 ml IH Q6HR PRN 07/08/16 [History] Budesonide/Formoterol 160/4.5 [Symbicort 160/4.5] 2 puff IH BIDR 01/31/17 [ History] Insulin Glargine,Hum.rec.anlog [Basaglar Kwikpen U-100] 35 unit SQ BID 01/31/17 [History] cefTRIAXone [Rocephin] 2,000 mg IVPB DAILY #13 vial 02/03/17 [Rx] Allergies/Adverse Reactions: 3 Allergy/AdvReac Type Severity Reaction Status Date / Time naproxen [From Naprosyn] Allergy Itching Verified 01/31/17 07:21 tramadol Allergy Itching Verified 01/31/17 07:21 Certification: Further, I certify that my clinical findings support that this patient is homebound (i.e. absences from home require considerable and taxing effort and are for medical reasons or congregational services or infrequently or short duration when for other reasons) because: Homebound Reason: Patient requires assistance of a person or device to safely leave home (Patient requires home IV antibiotics) Attestation: My signature below is to certify that this patient is under my care and that I, or nurse practitioner, or a physician's web marketing assistant working with me, has a face-to -face encounter with this patient.
[2017-02-03] MEDS ORDERED: Insulin LISPRO 300 UNITS/3 ML VIAL SQ SCH (12:00)
[2017-02-03] MEDS ORDERED: FLUARIX QUAD 2017-18 36MOS UP/PF 0.5 ML SYRINGE IM ONE (13:35)
[2017-02-03 15:19] LABS: Mycoplasma pneumoniae IgG 0.06 U/L (<=0.09)
[2017-02-03] MEDS ORDERED: Aminoglycoside Consult 1 EACH MC ONE (16:32)
== END 2017-02-03 16:33 | disposition home health service (06) ==
LOC: 3ANU → SUATTDRO 14:24
PROVIDERS: ADMIT Internal Medicine; ATTEND Internal Medicine

== ENCOUNTER 2017-02-08 18:37 | Observation (INO) ==
--- NOTE | 2017-02-08 20:18 | Emergency Department Note ---
Disposition Clinical Impression: Chest pain Qualifiers: Chest pain type: unspecified Qualified Code(s): R07.9 - Chest pain, unspecified Disposition: Admitted As Inpatient Condition: Fair Referrals: Stephanie Bobo CNP [Primary Care Provider] - Forms: ED Satisfaction Letter Time of Disposition: 22:13 Chest Pain HPI - General Chief Complaint: ED Extremity Problem,Nontraumatic Stated Complaint: L arm pain Time Seen by Provider: 02/08/17 20:11 Source: patient Mode of arrival: ambulatory Limitations: no limitations Vital Signs Reviewed: Yes Nursing Notes Reviewed: Yes - History of Present Illness HPI Narrative: 56-year-old comes in complaining of left upper chest and left arm pain. States that she was admitted for infection and discharged with a PICC line in the left arm. She was evaluated by her home health nurse who stated that the PICC line is working fine and does not appear to be the cause of her symptoms. 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: constant Onset: during rest Pain Location: left chest Severity scale (1-10): 9 Quality: tightness, aching Pain Radiation: LUE Improves with: nothing Worsens with: nothing - Related Data Home Medications Medication Instructions Recorded Confirmed Albuterol Sulfate [Proair Hfa] 2 puff IH Q4H PRN 05/10/16 02/08/17 Aspirin [Lo-Dose Aspirin EC] 81 mg PO DAILY 05/10/16 02/08/17 Carvedilol [Coreg] 12.5 mg PO BID 05/10/16 02/08/17 Ferrous Sulfate [Iron] 325 mg PO DAILY 05/10/16 02/08/17 Furosemide [Lasix] 20 mg PO DAILY 05/10/16 02/08/17 Loratadine [Allergy Relief] 10 mg PO DAILY 05/10/16 02/08/17 Omeprazole 20 mg PO DAILY 05/10/16 02/08/17 Paroxetine HCl [Paxil] 20 mg PO DAILY 05/10/16 02/08/17 Pravastatin Sodium [Pravachol] 20 mg PO DAILY 05/10/16 02/08/17 Insulin LISPRO [HumaLOG] 2 - 10 units SQ TIDAC 07/08/16 02/08/17 Ipratropium/Albuterol Neb [Duoneb] 3 ml IH Q6HR PRN 07/08/16 02/08/17 Budesonide/Formoterol 160/4.5 2 puff IH BIDR 01/31/17 02/08/17 [Symbicort 160/4.5] Insulin Glargine,Hum.rec.anlog 35 unit SQ BID 01/31/17 02/08/17 [Basaglar Kwikpen U-100] Previous Rx's Medication Instructions Recorded Docusate Sodium [Colace] 100 mg PO DAILY #30 capsule 05/13/16 Acetaminophen [Tylenol] 650 mg PO Q6HR PRN #60 tablet 05/14/16 cefTRIAXone [Rocephin] 2,000 mg IVPB DAILY #13 vial 02/03/17 Allergies Allergy/AdvReac Type Severity Reaction Status Date / Time naproxen [From Naprosyn] Allergy Itching Verified 01/31/17 07:21 tramadol Allergy Itching Verified 01/31/17 07:21 All systems ED: reviewed and negative except as stated. Constitutional: Denies: fever, chills, weakness, weight change Eyes: Denies: eye pain, eye discharge, vision change ENT ED: Denies: ear pain, throat pain, dental pain, hearing loss, epistaxis, congestion, dysphagia Cardiovascular: Reports: chest pain. Denies: palpitations, dyspnea on exertion , edema, syncope Respiratory: Denies: cough, dyspnea, wheezes, hemoptysis, stridor Gastrointestinal: Denies: abdominal pain, nausea, vomiting, diarrhea, constipation, hematemesis, melena, hematochezia Genitourinary: Denies: dysuria, frequency, hematuria, discharge Musculoskeletal: Reports: arthralgia. Denies: back pain, neck pain, myalgia Integumentary: Denies: rash, abrasion, lesions Neurological: Denies: headache, weakness, numbness, paresthesias, confusion, abnormal gait, vertigo Psychiatric: Denies: anxiety, depression, suicidal thoughts, homicidal thoughts , auditory hallucinations, visual hallucinations Endocrine: Denies: fatigue Hematological/Lymphatic: Denies: easy bleeding, easy bruising Allergic/Immunologic: Denies: facial swelling, urticaria Chest Pain PMH - Past Medical History Medical history: Reports: diabetes, GERD, hyperlipidemia, hypertension, other Surgical history: Reports: cholecystectomy, hysterectomy, orthopedic, other, other Psychiatric history: Reports: depression 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 - Social History Smoking Status: Former smoker Alcohol use: Reports: none Drug use: Reports: none Physical Exam - General Limitations: no limitations General appearance: alert, in no apparent distress - Head Head exam: atraumatic, normocephalic, normal inspection - Eye Eye exam: Present: normal appearance, PERRL, EOMI - ENT ENT exam: normal exam, normal oropharynx, mucous membranes moist - Neck Neck exam: Present: normal inspection, full ROM, trachea midline - Chest Chest inspection: Present: normal inspection, symmetric chest wall rise - Respiratory Respiratory exam: Present: normal lung sounds bilaterally - Cardiovascular Cardiovascular exam: Present: regular rate, normal rhythm, normal heart sounds - Abdominal Exam Abdominal exam: Present: soft, Non-Tender. Absent: tenderness, distention, guarding, rebound, rigidity - Extremities Exam Extremities exam: Present: normal inspection, full ROM. Absent: tenderness, pedal edema - Expanded Lower Extremity Exam Neurovascular/Tendon exam: Absent: motor deficit, sensory deficit, tendon deficit Gait: observed and normal - Back Exam Back exam: Present: normal inspection, full ROM. Absent: tenderness - Neurological Exam Neurological exam: Present: alert, oriented X3 - Psychiatric Psychiatric exam: Present: normal affect, normal mood - Skin Skin exam: Present: warm, dry, intact, normal color Course - Reevaluation(s) Reevaluation #1: 56-year-old who comes in complaining of chest pain into the jaw on the neck. She does have risk factors. Patient will be admitted for further evaluation and treatment. Time: 22:12 - Consultations Consultation #1: Discussed with , admit Time: 22:11 Vital Signs Temperature 98.4 F 02/08/17 19:13 Pulse Rate 100 02/08/17 19:13 Respiratory Rate 18 02/08/17 19:13 Blood Pressure 170/131 02/08/17 19:13 O2 Sat by Pulse Oximetry 96 02/08/17 19:13 Temperature 98.4 F 02/08/17 19:13 Pulse Rate 97 02/08/17 21:06 Respiratory Rate 14 02/08/17 21:06 Blood Pressure 178/93 02/08/17 21:06 O2 Sat by Pulse Oximetry 97 02/08/17 21:06 Oxygen Delivery Oxygen Delivery Room Air Chest Pain - Lab Data Lab results reviewed: Yes I reviewed the patient's lab results. Result diagrams: 02/08/17 20:19 02/08/17 20:19 Lab Results 02/08/17 02/08/17 02/08/17 Range/Units 20:19 20:19 20:19 WBC 13.4 H D (4.3-11.1) K/mcL RBC 5.04 H (3.82-4.97) M/mcL Hgb 13.2 D (11.5-15.4) g/dL Hct 41.2 (35.3-44.9) % MCV 81.7 L (83.0-100.0) fL MCH 26.2 L (28.0-33.3) pg MCHC 32.0 (31.6-35.5) g/dL RDW 14.2 (11.5-14.5) % Plt Count 374 D (140-400) K/mcL MPV 10.3 (9.4-12.4) fL Immature Gran % 0.6 (0-4) % Seg Neutrophils % 81.2 % Lymphocytes % 10.9 % Monocytes % 5.6 % Eosinophils % 1.4 % Basophils % 0.3 % Neutrophils # 10.9 H (1.6-8.9) K/mcL Lymphocytes # 1.5 (0.6-4.6) K/mcL Monocytes # 0.8 (0.0-1.3) K/mcL Eosinophils # 0.2 (0.0-0.6) K/mcL Basophils # 0.0 (0.0-0.2) K/mcL Sodium 140 (136-145) mEq/L Potassium 4.2 (3.5-4.5) mEq/L Chloride 105 (98-109) mEq/L Carbon Dioxide 28 (19-29) mEq/L BUN 11 (7-20) mg/dL Creatinine 1.01 (0.57-1.11) mg/dL Est GFR ( Amer) > 60 (> 60) Est GFR (Non-Af Amer) 56 L (> 60) BUN/Creatinine Ratio 11 (6-26) Glucose 183 H (70-99) mg/dL Calculated Osmolality 294 (280-300) Calcium 9.0 (8.6-10.8) mg/dL Troponin I 0.00 (0-0.03) ng/mL - Radiology Data Radiology results reviewed: Yes I reviewed the patient's radiology results. Chest X-Ray 02/08/17 20:16 IMPRESSION: Unchanged band of atelectasis at the left costophrenic angle. Lungs are otherwise clear. D/ / Rudy Cornelius MD / Rudy Cornelius MD Interpreting Provider: Rudy Cornelius MD Venous Doppler is negative for blood clot. - EKG Data EKG attestation: Yes I reviewed and interpreted this EKG. EKG shows normal: sinus rhythm Rate: normal Rhythm: NSR Interpretation: no acute changes Heart Score - Score History: Moderately Suspicious EKG: Non Specific repolarisation Disturbance Age: 45-65 Risk Factors: Equal/Greater than 3 risk factor or history of atherosclerotic disease Troponin: Less than normal limit HEART Score Total: 5
[2017-02-08 20:27] LABS: Basophils % 0.3 %; Eosinophils # 0.2 K/mcL (0.0-0.6); Eosinophils % 1.4 %; Hematocrit 41.2 % (35.3-44.9); Immature Granulocytes % 0.6 % (0-4); Lymphocytes # 1.5 K/mcL (0.6-4.6); Lymphocytes % 10.9 %; Mean Corpuscular Hemoglobin 26.2 pg (28.0-33.3); Mean Corpuscular Volume 81.7 fL (83.0-100.0); Mean Platelet Volume 10.3 fL (9.4-12.4); Monocytes # 0.8 K/mcL (0.0-1.3); Monocytes % 5.6 %; Neutrophils # 10.9 K/mcL (1.6-8.9); Platelet Count 374 K/mcL (140-400); Red Blood Count 5.04 M/mcL (3.82-4.97); Red Cell Distribution Width 14.2 % (11.5-14.5); Segmented Neutrophils % 81.2 %
[2017-02-08 20:29] LABS: Hemoglobin 13.2 g/dL (11.5-15.4)
[2017-02-08 20:39] LABS: BUN/Creatinine Ratio 11 (6-26); Blood Urea Nitrogen 11 mg/dL (7-20); Carbon Dioxide 28 mEq/L (19-29); Chloride 105 mEq/L (98-109); Glucose 183 mg/dL (70-99); Osmolality,Calculated 294 (280-300); Potassium 4.2 mEq/L (3.5-4.5); Sodium 140 mEq/L (136-145); eGFR For African Americans > 60 (> 60); eGFR For Non-African Americans 56 (> 60)
[2017-02-08] MEDS ORDERED: Naloxone 0.4 MG/ML INJ IVP PRN (22:46)
[2017-02-08] MEDS ORDERED: *HR* Morphine 2 MG/ML SYRINGE IVP PRN (22:46)
[2017-02-08] MEDS ORDERED: Ondansetron 4 MG/2 ML VIAL IVP PRN (22:46)
[2017-02-08] MEDS ORDERED: Acetaminophen 325 MG TABLET PO PRN (22:46)
[2017-02-08] MEDS ORDERED: Dextrose Gel 15 GM PO PRN ×2 (22:51)
[2017-02-08] MEDS ORDERED: *HR* Dextrose 50 % in Water (Syg) 50 ML SYRINGE IVP PRN (22:51)
[2017-02-08] MEDS ORDERED: D5% in Water 1,000 ML IVC PRN (22:51)
[2017-02-08] MEDS ORDERED: Ipratropium/Albuterol Neb 3 ML IH PRN (22:52)
[2017-02-08] MEDS ORDERED: Nitroglycerin 1 INCH/GM PACKET TP ONE (23:02)
--- NOTE | 2017-02-08 23:06 | Internal Med History&Physical ---
Date of Encounter: 02/08/17 Time of Encounter: 20:00 Assessment and Plan (1) Left arm pain Current visit: Yes Status: Acute Etiology is undetermined. ER admit the patient to rule out ACS as the patient has history of diabetes, hypertension, hyperlipidemia. - Patient denies chest pain, EKG negative, arm pain for 3 days already, troponin negative. Clear tenderness on left arm. Heart origin pain is less likely. - We will place patient on continuous cardiac monitoring and check 3 sets of troponin. No further testing warranted if troponin negative for 3 sets. - Suspected thrombus because patient has PICC line on left arm. Ultrasound has been done, preliminary result shows negative for DVT. - We will also place CT left shoulder and left hamerus. - Pain control. 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 No wheezing. Continue home medications Qualifiers: COPD type: unspecified COPD Qualified Code(s): J44.9 - Chronic obstructive pulmonary disease, unspecified (5) Diarrhea Current visit: No Status: Resolved Patient has mild diarrhea on antibiotics. Need to rule out C. difficile. Place a GI panel. Add probiotics Qualifiers: Diarrhea type: presumed infectious Qualified Code(s): A09 - Infectious gastroenteritis and colitis, unspecified (6) Bacteremia Current visit: Yes Status: Acute Patient has bacteremia found on last admission about 1 weeks ago. On Rocephin 2 g IV daily. Will continue to finish the 14 day course. (7) Hypertension Current visit: Yes Status: Acute Continue home medications. Hydralazine IV when necessary Qualifiers: Hypertension type: essential hypertension Qualified Code(s): I10 - Essential (primary) hypertension Internal Medicine - H&P: HPI Chief complaint: Left arm pain Admitted From: Home Plans for Post Hospital Care: Home History of present illness: Ms. Archer is a 56 year old female with history of diabetes, hypertension, hyperlipidemia, COPD, recent pneumonia and bacteremia on home IV antibiotic, presents to emergency room for left arm pain for 3 days. Patient denies injury or muscle sprain. Patient said the pain located on left hamerus and shoulder, worse on movement. Patient denies chest pain, shortness of breath, nausea, vomiting, diaphoresis. Patient has no fever. Patient has mild diarrhea recently. Past Med Surg Social Fam HX - Past Medical History Medical history: diabetes, GERD, hyperlipidemia, hypertension, other Psychiatric history: depression - Past Surgical History Surgical History: cholecystectomy, hysterectomy, orthopedic, other, other - Social History Smoking Status: Former smoker Smokeless Tobacco Status: No Alcohol use: none Drug use: none - Family History Brother Hx Family Neuromuscular Disorders: Yes Hx Family Neurologic Disorders: Yes (Guillian [place]) Father Living Status: Hx Family Cancer: Yes (colon cancer, black lung) Mother Family Member Ethnicity: Non- Living Status: Still Living Hx Family Cardiac Disorders: Yes (heart disease) Hx Family Endocrine Disorder: Yes (diabetes) Internal Medicine - H&P: Meds Albuterol Sulfate [Proair Hfa] 2 puff IH Q4H PRN 05/10/16 [History] Aspirin [Lo-Dose Aspirin EC] 81 mg PO DAILY 05/10/16 [History] Carvedilol [Coreg] 12.5 mg PO BID 05/10/16 [History] Ferrous Sulfate [Iron] 325 mg PO DAILY 05/10/16 [History] Furosemide [Lasix] 20 mg PO DAILY 05/10/16 [History] Loratadine [Allergy Relief] 10 mg PO DAILY 05/10/16 [History] Omeprazole 20 mg PO DAILY 05/10/16 [History] Paroxetine HCl [Paxil] 20 mg PO DAILY 05/10/16 [History] Pravastatin Sodium [Pravachol] 20 mg PO DAILY 05/10/16 [History] Docusate Sodium [Colace] 100 mg PO DAILY #30 capsule 05/13/16 [Rx] Acetaminophen [Tylenol] 650 mg PO Q6HR PRN #60 tablet 05/14/16 [Rx] Insulin LISPRO [HumaLOG] 2 - 10 units SQ TIDAC 07/08/16 [History] Ipratropium/Albuterol Neb [Duoneb] 3 ml IH Q6HR PRN 07/08/16 [History] Budesonide/Formoterol 160/4.5 [Symbicort 160/4.5] 2 puff IH BIDR 01/31/17 [ History] Insulin Glargine,Hum.rec.anlog [Franaglar Adriapen U-100] 35 unit SQ BID 01/31/17 [History] cefTRIAXone [Rocephin] 2,000 mg IVPB DAILY #13 vial 02/03/17 [Rx] 3 Allergy/AdvReac Type Severity Reaction Status Date / Time naproxen [From Naprosyn] Allergy Itching Verified 01/31/17 07:21 tramadol Allergy Itching Verified 01/31/17 07:21 All Systems PM: A 10-system review of systems was performed and is negative for pertinent findings except as documented above in the HPI. - Constitutional Vitals: Temp Pulse Resp BP Pulse Ox 97.5 F L 90 17 182/108 96 02/08/17 22:52 02/08/17 22:52 02/08/17 22:52 02/08/17 22:52 02/08/17 22:52 General appearance: Present: A&O X 3, no acute distress, answers questions appropriately - Head Head exam: Present: atraumatic, normocephalic - Eye Eye exam: Present: PERRL, conjuntiva pink, sclera anicteric Pupils: Present: PERRL - Neck Neck exam general surgery: Present: supple, trachea midline. Absent: lymphadenopathy - Respiratory Respiratory exam: Present: CTAB. Absent: accessory muscle use, rales, rhonchi, wheezes - Cardiovascular Cardiovascular exam: Present: RRR, +S1, +S2. Absent: diastolic murmur, gallop, rubs, systolic murmur - GI/Abdominal GI/Abdominal exam: Present: normal bowel sounds, soft, no peritoneal signs. Absent: distended, tenderness - Extremities Exam Extremities exam: Present: warm, radial pulses palpable and symmetrical. Absent : calf tenderness, cyanotic, pedal edema Additional comments: Left hamerus tenderness. No skin redness or warmth. ROM of left shoulder limited due to pain - Neurological Exam Neurological exam: Present: CN II-XII intact, oriented X3, no focal deficits. Absent: pronater drift, facial droop, speech deficit - Skin Skin exam: Present: dry, intact Internal Med - H&P Results - Labs CBC & Chem 7: 02/08/17 20:19 02/08/17 20:19 - EKG Data -: EKG Interpreted by Myself EKG shows normal: sinus rhythm Rate: normal
[2017-02-08] MEDS: Lactobacillus 1 EACH CAP.SPRINK PO SCH (23:54)
[2017-02-08] MEDS: Insulin DETEMIR 100 UNIT/ML X5UNITS SQ SCH (23:54)
[2017-02-09] MEDS: *HR* OxyCODONE/APAP 5/325 TABLET PO PRN ×4 (00:03→21:38)
[2017-02-09 03:33] LABS: Basophils % 0.3 %; Eosinophils # 0.2 K/mcL (0.0-0.6); Eosinophils % 1.2 %; Hematocrit 37.4 % (35.3-44.9); Hemoglobin 11.8 g/dL (11.5-15.4); Immature Granulocytes % 0.5 % (0-4); Lymphocytes # 1.3 K/mcL (0.6-4.6); Lymphocytes % 9.8 %; Mean Corpuscular HGB Conc 31.6 g/dL (31.6-35.5); Mean Corpuscular Volume 82.6 fL (83.0-100.0); Mean Platelet Volume 10.8 fL (9.4-12.4); Monocytes # 0.5 K/mcL (0.0-1.3); Monocytes % 4.2 %; Neutrophils # 10.8 K/mcL (1.6-8.9); Platelet Count 319 K/mcL (140-400); Red Blood Count 4.53 M/mcL (3.82-4.97); Red Cell Distribution Width 14.2 % (11.5-14.5)
[2017-02-09 03:42] LABS: BUN/Creatinine Ratio 17 (6-26); Blood Urea Nitrogen 13 mg/dL (7-20); Calcium 8.6 mg/dL (8.6-10.8); Carbon Dioxide 27 mEq/L (19-29); Chloride 105 mEq/L (98-109); Glucose 234 mg/dL (70-99); Magnesium 1.6 mg/dL (1.6-2.6); Osmolality,Calculated 294 (280-300); Potassium 3.9 mEq/L (3.5-4.5); Sodium 138 mEq/L (136-145); eGFR For African Americans > 60 (> 60); eGFR For Non-African Americans > 60 (> 60)
[2017-02-09] MEDS ORDERED: *HR* Heparin 5,000 UNIT/ML VIAL SQ SCH (06:00)
[2017-02-09] MEDS: Insulin LISPRO 300 UNITS/3 ML VIAL SQ SCH ×3 (07:58→16:56)
[2017-02-09] MEDS: Budesonide/Formoterol 160/4.5 MDI IH SCH ×2 (08:13→20:33)
[2017-02-09] MEDS: Lactobacillus 1 EACH CAP.SPRINK PO SCH (08:44)
[2017-02-09] MEDS: Aspirin Enteric Coated 81 MG Tablet PO SCH (08:45)
[2017-02-09] MEDS: Furosemide 20 MG TABLET PO SCH (08:45)
[2017-02-09] MEDS: Loratadine 10 MG TABLET PO SCH (08:46)
[2017-02-09] MEDS: cefTRIAXone 2,000 MG in Water for inj. (sterile) 20 ML IVP SCH (08:54)
[2017-02-09] MEDS: Insulin DETEMIR 100 UNIT/ML X5UNITS SQ SCH ×2 (08:54→21:31)
[2017-02-09] MEDS ORDERED: CefTRIAXone 2,000 MG VIAL IVPB SCH (09:00)
--- NOTE | 2017-02-09 12:26 | Discharge Summary ---
Date of Encounter: 02/09/17 Time of Encounter: 09:40 - Discharge Diagnosis (1) Left arm pain Priority: Primary Status: Acute Comments: Patient was admitted for 3 day duration of left arm pain. She was admitted to rule out ACS due to her past medical history of diabetes, hypertension, and hyperlipidemia. Patient has PICC placed in left upper arm due to recent admission for pneumonia and bacteremia. She was just discharged from here 6 days ago, she denies any change in routine or physical activity, denies known injury. She denies chest pain at any point. Her EKG was normal sinus, troponins were negative. Chest x-ray is negative for any acute process. Humerus CT notes a PICC in left basilic vein, nonspecific area of inflammatory soft tissue stranding in the subcutaneous fat along the posterior aspect of left upper arm, this is where she complains of pain. This could represent a small hematoma versus enlarged lymph node. There is no focal fluid collection or abscess. Left upper extremity Doppler was negative for DVT. Again PICC line placement left cephalic vein. There is tenderness with palpation to left lateral upper extremity, also pain with adduction of arm across midline. Patient has +2 radial pulse to left upper extremity and brisk capillary refill. Will treat symptomatically with warm compresses, continue range of motion, pain medication when necessary. Chest X-Ray 02/08/17 20:16 IMPRESSION: Unchanged band of atelectasis at the left costophrenic angle. Lungs are otherwise clear. D/ / Rudy Cornelius MD / Rudy Cornelius MD Interpreting Provider: Rudy Cornelius MD Humerus CT 02/08/17 22:44 IMPRESSION: 1. There is a PICC line noted in the region of the left basilic vein without an adjacent fluid collection or abscess. Underlying venous thrombosis cannot be excluded. A left upper extremity ultrasound could be performed for further evaluation if this is of clinical concern. 2. Nonspecific area of inflammatory soft tissue stranding in the subcutaneous fat along the posterior aspect of the left upper arm measuring 1.1 x 0.9 cm. This could represent a small hematoma versus enlarged lymph node. 3. No focal fluid collection or abscess. D/ / 02/09/2017 06:29:57 Ryan Alvarez MD / [email or web address] Interpreting Provider: Ryan Alvarez MD (2) Hypertension Priority: Secondary Status: Chronic Comments: Well controlled. Continue home medications. Qualifiers: Hypertension type: essential hypertension Qualified Code(s): I10 - Essential (primary) hypertension (3) Bacteremia Priority: Secondary Status: Acute Comments: Patient with recent admission for bacteremia and pneumonia. Blood cultures were positive for Streptococcus anginosus and she is receiving a 2 week course of IV Rocephin 2 g daily. This was continued while she was admitted, will continue at home after discharge. (4) Diabetes Priority: Secondary Status: Chronic Comments: A1c was 8.5% in April. Continue home medication and Accu-Chek regimen. Continue diabetic diet. Qualifiers: Diabetes mellitus type: type 2 Diabetes mellitus complication status: with unspecified complications Diabetes mellitus retirement insulin use: with intermission coordinator use Qualified Code(s): E11.8 - Type 2 diabetes mellitus with unspecified complications; Z79.4 - [facility] (current) use of insulin (5) COPD (chronic obstructive pulmonary disease) Priority: Secondary Status: Chronic Comments: No acute exacerbation. Lungs are clear throughout. Continue home medications. Qualifiers: COPD type: unspecified COPD Qualified Code(s): J44.9 - Chronic obstructive pulmonary disease, unspecified (6) HLD (hyperlipidemia) Priority: Secondary Status: Chronic Comments: Chronic. Continue simvastatin 10 mg by mouth daily at bedtime. Qualifiers: Hyperlipidemia type: unspecified Qualified Code(s): E78.5 - Hyperlipidemia , unspecified (7) Diarrhea Priority: Secondary Status: Resolved Comments: Patient reports several loose bowel movements daily. Stool panel has been received and is pending. Will monitor for results and treat accordingly. Pt with abdominal tenderness that she states is normal for her and unchanged. Qualifiers: Diarrhea type: presumed infectious Qualified Code(s): A09 - Infectious gastroenteritis and colitis, unspecified (8) DVT prophylaxis Priority: Secondary Status: Acute Comments: Heparin subcutaneous. (9) Obesity (BMI 30-39.9) Priority: Secondary Status: Chronic Comments: Chronic. Lifestyle modifications. - Discharge Medications Prescriptions: Acetaminophen [Tylenol] 1,000 mg PO Q8H PRN #21 tablet PRN Reason: Pain Home Medications: Albuterol Sulfate [Proair Hfa] 2 puff IH Q4H PRN 05/10/16 [History] Aspirin [Lo-Dose Aspirin EC] 81 mg PO DAILY 05/10/16 [History] Carvedilol [Coreg] 12.5 mg PO BID 05/10/16 [History] Ferrous Sulfate [Iron] 325 mg PO DAILY 05/10/16 [History] Furosemide [Lasix] 20 mg PO DAILY 05/10/16 [History] Loratadine [Allergy Relief] 10 mg PO DAILY 05/10/16 [History] Omeprazole 20 mg PO DAILY 05/10/16 [History] Paroxetine HCl [Paxil] 20 mg PO DAILY 05/10/16 [History] Pravastatin Sodium [Pravachol] 20 mg PO DAILY 05/10/16 [History] Docusate Sodium [Colace] 100 mg PO DAILY #30 capsule 05/13/16 [Rx] Acetaminophen [Tylenol] 650 mg PO Q6HR PRN #60 tablet 05/14/16 [Rx] Insulin LISPRO [HumaLOG] 2 - 10 units SQ TIDAC 07/08/16 [History] Ipratropium/Albuterol Neb [Duoneb] 3 ml IH Q6HR PRN 07/08/16 [History] Budesonide/Formoterol 160/4.5 [Symbicort 160/4.5] 2 puff IH BIDR 01/31/17 [ History] Insulin Glargine,Hum.rec.anlog [Basaglar Kwikpen U-100] 35 unit SQ BID 01/31/17 [History] cefTRIAXone [Rocephin] 2,000 mg IVPB DAILY #13 vial 02/03/17 [Rx] Acetaminophen [Tylenol] 1,000 mg PO Q8H PRN #21 tablet 02/09/17 [Rx] Allergies/Adverse Reactions: 3 Allergy/AdvReac Type Severity Reaction Status Date / Time naproxen [From Naprosyn] Allergy Itching Verified 01/31/17 07:21 tramadol Allergy Itching Verified 01/31/17 07:21 Procedures/tests Complete & Pending: Procedures Performed prior 72 hours Category Date Time Status CT humerus LT wo con [CT] Stat Cat Scan 02/08/17 22:[address] shoulder LT wo con [CT] Stat Cat Scan 02/08/17 22:44 Ordered Date of admission: 02/08/17 22:22 Primary care physician: Stephanie Bobo CNP Consults: 02/09/17 11:22 Consult to [facility] [CONS] Routine Reason for SW Consult: d/c planning, readmission Discharging clinician: Kiana Mcclelland Anticipated date of discharge: 02/09/17 - Patient Status Disposition: Home, Self-Care Condition: Good Functional capacity at discharge: independent ambulation Overall status at discharge: patient is progressing back to baseline - Discharge Instructions Follow Up With: Stephanie Bobo CNP [Primary Care Provider] - Additional Instructions: Please follow up with your PCP in the next week to 10 days for a recheck. Return to the ER as needed for any other problems or concerns or if your symptoms return or worsen. Resume your normal home medications, activities, and diet as tolerated. Apply warm compresses to your left arm every 2-3 hours for comfort and take your pain medication as directed. Your prescription has been called into your pharmacy. - Diet and Activity Activity: increase activity as tolerated, resume usual activities as tolerated Diet: advance to your usual diet Interval History: Please see assessment and plan for hospital course. Hospital course: Ms. Archer is a 56 year old female - Time Spent with Patient Total time spent providing and/or coordinating discharge services: Less than 30 minutes - Constitutional Vitals: Temp Pulse Resp BP Pulse Ox 97.8 F 81 18 123/79 92 02/09/17 11:34 02/09/17 11:34 02/09/17 11:34 02/09/17 11:34 02/09/17 11:34 General appearance: Present: cooperative, A&O X 3, no acute distress, answers questions appropriately - Head Head exam: Present: atraumatic, normal inspection, normocephalic - Eye Eye exam: Present: normal appearance, conjuntiva pink, sclera anicteric - Neck Neck exam general surgery: Present: normal inspection, supple, trachea midline. Absent: lymphadenopathy, tenderness - Respiratory Respiratory exam: Present: CTAB. Absent: accessory muscle use, chest wall tenderness, rales, respiratory distress, rhonchi, wheezes - Cardiovascular Cardiovascular exam: Present: RRR, +S1, +S2. Absent: diastolic murmur, gallop, rubs, systolic murmur - GI/Abdominal GI/Abdominal exam: Present: normal bowel sounds, soft, tenderness, no peritoneal signs. Absent: distended, hepatomegaly - Extremities Exam Extremities exam: Present: normal capillary refill, normal inspection, warm, radial pulses palpable and symmetrical. Absent: calf tenderness, cyanotic, pedal edema - Neurological Exam Neurological exam: Present: alert, oriented X3, no focal deficits. Absent: facial droop, speech deficit - Skin Skin exam: Present: dry, intact, normal color, warm. Absent: rash
[2017-02-09 13:46] LABS: Adenovirus F 40/41 PCR Not detected (Not detect); Astrovirus PCR Not detected (Not detect); C.difficile Toxin A/B by PCR Not detected (Not detect); Campylobacter by PCR Not detected (Not detect); Cryptosporidium by PCR Not detected (Not detect); Cyclospora cayetanensis PCR Not detected (Not detect); E. coli O157 by PCR Not detected (Not detect); Entamoeba histolytica PCR Not detected (Not detect); Enteroaggregative E.coli(EAEC) Not detected (Not detect); Enteropathogenic E.coli(EPEC) Not detected (Not detect); Enterotoxigenic E.coli (ETEC) Not detected (Not detect); Giardia lamblia PCR Not detected (Not detect); Norovirus GI/GII PCR Not detected (Not detect); Plesiomonas shigelloides PCR Not detected (Not detect); Rotavirus A PCR Not detected (Not detect); Salmonella PCR Not detected (Not detect); Sapovirus PCR Not detected (Not detect); Shig/EnteroinvasiveE coli EIEC Not detected (Not detect); Shigalike tox-prod E coli STEC Not detected (Not detect); Vibrio PCR Not detected (Not detect); Vibrio cholerae PCR Not detected (Not detect); Yersinia enterocolitica PCR Not detected (Not detect)
--- NOTE | 2017-02-09 20:36 | Electrocardiograph Report ---
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
[2017-02-09] MEDS ORDERED: Insulin LISPRO 300 UNITS/3 ML VIAL SQ SCH (21:00)
[2017-02-10] MEDS: *HR* OxyCODONE/APAP 5/325 TABLET PO PRN ×2 (03:59→10:55)
[2017-02-10] MEDS: Insulin LISPRO 300 UNITS/3 ML VIAL SQ SCH ×2 (08:06→12:17)
[2017-02-10] MEDS: Lactobacillus 1 EACH CAP.SPRINK PO SCH (08:07)
[2017-02-10] MEDS: Aspirin Enteric Coated 81 MG Tablet PO SCH (08:08)
[2017-02-10] MEDS: Furosemide 20 MG TABLET PO SCH (08:08)
[2017-02-10] MEDS: Loratadine 10 MG TABLET PO SCH (08:08)
[2017-02-10] MEDS: cefTRIAXone 2,000 MG in Water for inj. (sterile) 20 ML IVP SCH (08:08)
[2017-02-10 08:51] LABS: Basophils % 0.3 %; Eosinophils # 0.1 K/mcL (0.0-0.6); Eosinophils % 0.8 %; Hematocrit 40.1 % (35.3-44.9); Hemoglobin 12.7 g/dL (11.5-15.4); Immature Granulocytes % 0.4 % (0-4); Lymphocytes # 1.4 K/mcL (0.6-4.6); Lymphocytes % 11.8 %; Mean Corpuscular HGB Conc 31.7 g/dL (31.6-35.5); Mean Corpuscular Hemoglobin 26.3 pg (28.0-33.3); Mean Corpuscular Volume 83.2 fL (83.0-100.0); Mean Platelet Volume 10.5 fL (9.4-12.4); Monocytes # 0.6 K/mcL (0.0-1.3); Monocytes % 4.9 %; Neutrophils # 9.7 K/mcL (1.6-8.9); Platelet Count 333 K/mcL (140-400); Red Blood Count 4.82 M/mcL (3.82-4.97); Red Cell Distribution Width 14.1 % (11.5-14.5); Segmented Neutrophils % 81.8 %
[2017-02-10] MEDS: Insulin DETEMIR 100 UNIT/ML X5UNITS SQ SCH (10:56)
[2017-02-10 11:07] VITALS: BP 131/61
[2017-02-10] MEDS: Budesonide/Formoterol 160/4.5 MDI IH SCH (11:44)
--- NOTE | 2017-02-10 14:01 | Internal Med Progress Note ---
Date of Encounter: 02/10/17 Time of Encounter: 09:40 - Assessment and plan (1) Left arm pain Current Visit: Yes Status: Acute Assessment and plan: Patient was admitted for 3 day duration of left arm pain. She was admitted to rule out ACS due to her past medical history of diabetes, hypertension, and hyperlipidemia. Patient has PowerGlyde placed in left upper arm due to recent admission for pneumonia and bacteremia. She was just discharged from here 6 days ago, she denies any change in routine or physical activity, denies known injury. She denies chest pain at any point. Her EKG was normal sinus, troponins were negative. Chest x-ray is negative for any acute process. Humerus CT notes a PICC in left basilic vein, nonspecific area of inflammatory soft tissue stranding in the subcutaneous fat along the posterior aspect of left upper arm, this is where she complains of pain. This could represent a small hematoma versus enlarged lymph node. There is no focal fluid collection or abscess. Left upper extremity Doppler was negative for DVT. Again line placement noted in left cephalic vein. Patient had a CT left shoulder without contrast, also noted in this test the smallbore catheter extending from the subcutaneous tissues of the lateral aspect of upper, extend anteriorly with dense small subcutaneous vein since it is a power glide and not a PICC, the results of this test are of no concern. There is tenderness with palpation to left lateral upper extremity, also pain with adduction of arm across midline. Patient has +2 radial pulse to left upper extremity and brisk capillary refill. Will treat symptomatically with warm compresses, continue range of motion, pain medication when necessary after discharge. Chest X-Ray 02/08/17 20:16 IMPRESSION: Unchanged band of atelectasis at the left costophrenic angle. Lungs are otherwise clear. D/ / Rudy Cornelius MD / Rudy Cornelius MD Interpreting Provider: Rudy Cornelius MD Humerus CT 02/08/17 22:44 IMPRESSION: 1. There is a PICC line noted in the region of the left basilic vein without an adjacent fluid collection or abscess. Underlying venous thrombosis cannot be excluded. A left upper extremity ultrasound could be performed for further evaluation if this is of clinical concern. 2. Nonspecific area of inflammatory soft tissue stranding in the subcutaneous fat along the posterior aspect of the left upper arm measuring 1.1 x 0.9 cm. This could represent a small hematoma versus enlarged lymph node. 3. No focal fluid collection or abscess. D/ / 02/09/2017 06:29:57 Ryan Alvarez MD / [facility] Interpreting Provider: Ryan Alvarez MD Shoulder CT 02/09/17 22:44 IMPRESSION: There is a small bore catheter extending from the subcutaneous tissues of the lateral aspect of the upper arm and extends anteriorly within a small subcutaneous vein. This does not extend past the lateral margin of the pectoralis muscle. Please correlate with the size and length of the catheter that was recently inserted. No catheter is identified centrally. While catheter fracture is a consideration, no central catheter is identified on the 02/08/2017 chest radiograph. D/ / 02/09/2017 15:14:24 Darwin Yanes MD / [email or web address] Interpreting Provider: Darwin Yanes MD (2) Hypertension Current Visit: Yes Status: Chronic Assessment and plan: All controlled. Continue home medications. Qualifiers: Hypertension type: essential hypertension Qualified Code(s): I10 - Essential (primary) hypertension (3) Bacteremia Current Visit: Yes Status: Acute Assessment and plan: Pt with recent admission for bacteremia and pna. Blood cultures were positive for Streptococcus anginosus and she is receiving a 2 week course of IV Rocephin 2 g daily. This was continued while she was admitted, will continue at home after discharge. (4) Diabetes Current Visit: No Status: Chronic Assessment and plan: A1c was 8.5% in April. Continue home medication and Accu-Chek regimen. Continue diabetic diet. Qualifiers: Diabetes mellitus type: type 2 Diabetes mellitus complication status: with unspecified complications Diabetes mellitus intermediate manager insulin use: with custodial use Qualified Code(s): E11.8 - Type 2 diabetes mellitus with unspecified complications; Z79.4 - intermediate (current) use of insulin (5) COPD (chronic obstructive pulmonary disease) Current Visit: Yes Status: Chronic Assessment and plan: No acute exacerbation. Lungs are clear throughout. Continue home medications. Qualifiers: COPD type: unspecified COPD Qualified Code(s): J44.9 - Chronic obstructive pulmonary disease, unspecified (6) HLD (hyperlipidemia) Current Visit: No Status: Chronic Assessment and plan: No acute exacerbation. Lungs are clear throughout. Continue home medications. Qualifiers: Hyperlipidemia type: unspecified Qualified Code(s): E78.5 - Hyperlipidemia , unspecified (7) Diarrhea Current Visit: No Status: Resolved Assessment and plan: Patient reports several loose bowel movements daily. Stool panel was ordered, but pt did not have diarrhea during admission, it was not collected. Pt with abdominal tenderness that she states is normal for her and unchanged. Qualifiers: Diarrhea type: presumed infectious Qualified Code(s): A09 - Infectious gastroenteritis and colitis, unspecified (8) DVT prophylaxis Current Visit: No Status: Acute Assessment and plan: Heparin subcutaneous. (9) Obesity (BMI 30-39.9) Current Visit: Yes Status: Chronic Assessment and plan: Chronic. Continue home medications. - Subjective Interval history: Patient was seen and assessed at 9:40 AM. Her power glide was moved to the right arm. Prior line was not a PICC, it was a power glide, as well. There are no missing pieces or fracture in the line. Patient reports that pain is better, however she does ask for pain medication for home. She will be given a prescription for Tylenol Extra Strength. She denies headache, nausea, vomiting , diarrhea, abdominal pain, chest pain, shortness of breath, dyspnea, or peripheral edema. Patient is stable and ready for discharge. - Constitutional Vitals: Temp Pulse Resp BP Pulse Ox 97.6 F 75 17 131/61 94 02/10/17 11:06 02/10/17 11:06 02/10/17 11:06 02/10/17 11:06 02/10/17 11:06 General appearance: Present: cooperative, A&O X 3, no acute distress, answers questions appropriately - Head Head exam: Present: atraumatic, normal inspection, normocephalic - Eye Eye exam: Present: normal appearance, conjuntiva pink, sclera anicteric - Neck Neck exam general surgery: Present: supple, trachea midline. Absent: lymphadenopathy - Respiratory Respiratory exam: Present: CTAB. Absent: accessory muscle use, rales, rhonchi, wheezes - Cardiovascular Cardiovascular exam: Present: RRR, +S1, +S2. Absent: diastolic murmur, gallop, rubs, systolic murmur - GI/Abdominal GI/Abdominal exam: Present: normal bowel sounds, soft. Absent: distended, hepatomegaly, tenderness - Extremities Exam Extremities exam: Present: normal capillary refill, normal inspection, tenderness, warm, radial pulses palpable and symmetrical. Absent: calf tenderness, cyanotic, pedal edema - Neurological Exam Neurological exam: Present: alert, oriented X3, no focal deficits. Absent: facial droop, speech deficit - Skin Skin exam: Present: dry, intact, normal color, warm. Absent: rash, vesicles Internal Medicine: Result - Labs CBC & Chem 7: 02/10/17 08:34 02/09/17 02:35 Labs: Short CBC 02/10/17 Range/Units 08:34 WBC 11.8 H (4.3-11.1) K/mcL Hgb 12.7 (11.5-15.4) g/dL Hct 40.1 (35.3-44.9) % Plt Count 333 (140-400) K/mcL Neutrophils # 9.7 H (1.6-8.9) K/mcL - Impressions Impressions Shoulder CT 02/09/17 22:44 IMPRESSION: There is a small bore catheter extending from the subcutaneous tissues of the lateral aspect of the upper arm and extends anteriorly within a small subcutaneous vein. This does not extend past the lateral margin of the pectoralis muscle. Please correlate with the size and length of the catheter that was recently inserted. No catheter is identified centrally. While catheter fracture is a consideration, no central catheter is identified on the 02/08/2017 chest radiograph. D/ / 02/09/2017 15:14:24 Darwin Yanes MD / [email or web address] Interpreting Provider: Darwin Yanes MD Consult Discharge Plan - Plan Instructions: Ceftriaxone (Injection) Additional Instructions: Please follow up with your PCP in the next week to 10 days for a recheck. Return to the ER as needed for any other problems or concerns or if your symptoms return or worsen. Resume your normal home medications, activities, and diet as tolerated. Apply warm compresses to your left arm every 2-3 hours for comfort and take your pain medication as directed. Your prescription has been called into your pharmacy. Referrals: Stephanie Bobo CNP [Primary Care Provider] - 02/17/17 12:45 pm Prescriptions: Acetaminophen [Tylenol] 1,000 mg PO Q8H PRN #21 tablet PRN Reason: Pain
--- NOTE | 2017-02-10 14:23 | Physician Discharge Referral ---
Home Health/Hosp Referral Info Provider in Charge Post Discharge: PCP - Diagnosis (1) Left arm pain Priority: Primary Status: Acute (2) Hypertension Priority: Secondary Status: Chronic (3) Bacteremia Priority: Secondary Status: Acute (4) Diabetes Priority: Secondary Status: Chronic (5) COPD (chronic obstructive pulmonary disease) Priority: Secondary Status: Chronic (6) HLD (hyperlipidemia) Priority: Secondary Status: Chronic (7) Diarrhea Priority: Secondary Status: Resolved (8) DVT prophylaxis Priority: Secondary Status: Acute (9) Obesity (BMI 30-39.9) Priority: Secondary Status: Chronic - Respiratory Orders Smoking Cessation: Smoking cessation has been advised. For more information, call the [place] Tobacco Quit Line at 7-323-EPQD-NOW. - Diet/Nutrition Diet/Nutrition Orders: Regular - Activity Activity Orders: Up ad rickey - Services Needed Following services are medically necessary services: Home Health Aide, Physical Therapy, Occupational Therapy, Med Social Work - Transfer Medications Prescriptions: Acetaminophen [Tylenol] 1,000 mg PO Q8H PRN #21 tablet PRN Reason: Pain Home Medications: Albuterol Sulfate [Proair Hfa] 2 puff IH Q4H PRN 05/10/16 [History] Aspirin [Lo-Dose Aspirin EC] 81 mg PO DAILY 05/10/16 [History] Carvedilol [Coreg] 12.5 mg PO BID 05/10/16 [History] Ferrous Sulfate [Iron] 325 mg PO DAILY 05/10/16 [History] Furosemide [Lasix] 20 mg PO DAILY 05/10/16 [History] Loratadine [Allergy Relief] 10 mg PO DAILY 05/10/16 [History] Omeprazole 20 mg PO DAILY 05/10/16 [History] Paroxetine HCl [Paxil] 20 mg PO DAILY 05/10/16 [History] Pravastatin Sodium [Pravachol] 20 mg PO DAILY 05/10/16 [History] Docusate Sodium [Colace] 100 mg PO DAILY #30 capsule 05/13/16 [Rx] Acetaminophen [Tylenol] 650 mg PO Q6HR PRN #60 tablet 05/14/16 [Rx] Insulin LISPRO [HumaLOG] 2 - 10 units SQ TIDAC 07/08/16 [History] Ipratropium/Albuterol Neb [Duoneb] 3 ml IH Q6HR PRN 07/08/16 [History] Budesonide/Formoterol 160/4.5 [Symbicort 160/4.5] 2 puff IH BIDR 01/31/17 [ History] Insulin Glargine,Hum.rec.anlog [Basaglar Kwikpen U-100] 35 unit SQ BID 01/31/17 [History] cefTRIAXone [Rocephin] 2,000 mg IVPB DAILY #13 vial 02/03/17 [Rx] Acetaminophen [Tylenol] 1,000 mg PO Q8H PRN #21 tablet 02/09/17 [Rx] Allergies/Adverse Reactions: 3 Allergy/AdvReac Type Severity Reaction Status Date / Time naproxen [From Naprosyn] Allergy Itching Verified 01/31/17 07:21 tramadol Allergy Itching Verified 01/31/17 07:21 Certification: Further, I certify that my clinical findings support that this patient is homebound (i.e. absences from home require considerable and taxing effort and are for medical reasons or alevism services or infrequently or short duration when for other reasons) because: Homebound Reason: Patient requires assistance of a person or device to safely leave home Attestation: My signature below is to certify that this patient is under my care and that I, or nurse practitioner, or a physician's nurse's assistant working with me, has a face-to -face encounter with this patient.
== END 2017-02-10 14:37 | disposition home or self-care (01) ==
LOC: EMEROO 18:37 → 3BNU 18:37
PROVIDERS: ADMIT Internal Medicine; ATTEND Registered Nurse